=== PATIENT | male | born 1950 | race Caucasian/White ===

== ENCOUNTER 2019-05-22 08:44 | Outpatient (CLI) | payer MEDICARE, SELFPAY ==
[2019-05-22 09:19] LABS: Basophils Percent Auto 0.4 % (0.2-1.2); Eosinophils Absolute Auto 0.2 K/mm3 (0-0.3); Hematocrit 41.2 % (42.0-52.0); Hemoglobin 14.5 g/dL (14.0-18.0); Immature Granulocyte Absolute 0.03 K/mm3 (0.00-0.031); Immature Granulocyte Percent A 0.4 % (0-0.5); Lymphocytes Absolute Auto 2.37 K/mm3 (0.9-3.2); Lymphocytes Percent Auto 30.2 % (18.3-44.2); Mean Corpuscular HGB Conc 35.2 g/dl (32-36); Mean Corpuscular Hemoglobin 30.2 pg (26-34); Mean Corpuscular Volume 85.8 fl (80-100); Mean Platelet Volume 10.4 fl (7.4-10.4); Monocytes Absolute Auto 0.5 K/mm3 (0.1-0.6); Monocytes Percent Auto 6.6 % (2.6-8.5); Neutrophils Absolute Auto 4.7 K/mm3 (1.3-6.7); Neutrophils Percent Auto 60.4 % (45.5-73.1); Platelet Count Result 245 k/mm3 (150-375); Red Cell Distribution Width 12.8 % (11.5-14.5); White Blood Count 7.8 K/mm3 (4.5-10.0)
[2019-05-22 09:20] LABS: Add Urine Microscopic? NO; Appearance Urine Clear (Clear); Bilirubin Urine Negative (Negative); Blood Urine Negative (Negative); Color Urine Yellow (Yellow); Glucose Urine UA Negative (Negative); Ketones Urine Negative (Negative); Leukocyte Esterase Ur Negative LEU/UL (Negative); Nitrate Urine Negative (Negative); Protein Urine Negative (Negative); Specific Grav Ur 1.019 (1.001-1.035); Urobilinogen Urine Negative mg/dL (<2.0)
[2019-05-22 09:33] LABS: Magnesium 1.7 mg/dL (1.6-2.3)
[2019-05-22 09:34] LABS: Alanine Aminotransferase 23 U/L (4-50); Albumin Level 4.7 g/dL (3.5-5.1); Alkaline Phosphatase 86 U/L (38-126); Aspartate Amino Transferase 26 U/L (17-59); Bilirubin,Total 0.7 mg/dL (0.2-1.3); Blood Urea Nitrogen 30 mg/dL (9-20); Calcium 10.1 mg/dL (8.4-10.2); Carbon Dioxide 28 mmol/L (22-30); Chloride 103 mmol/L (98-107); Estimated Glomerular Filt Rate 40; Glucose 157 mg/dL (75-110); Phosphorus 3.5 mg/dL (2.5-4.5); Potassium 4.7 mmol/L (3.4-5.0); Sodium 138 mmol/L (137-145)
[2019-05-22 09:36] LABS: Creatinine Urine 229.4 mg/dL; Total Protein Urine Random 8 mg/dL
[2019-05-22 09:45] LABS: Parathyroid Intact 70.9 pg/mL (7.5-53.5)
[2019-05-22 09:49] LABS: Hemoglobin A1C 7.7 % (<5.7)
[2019-05-22 10:11] LABS: Vitamin D 25 Hydroxy 48.4 ng/mL
== END 2019-05-22 08:45 | disposition home or self-care (01) ==
PROVIDERS: PCP Internal Medicine
DX: N18.3 Chronic kidney disease, stage 3 (moderate) (principal); D63.1 Anemia in chronic kidney disease; E11.9 Type 2 diabetes mellitus without complications; N25.0 Renal osteodystrophy; E55.9 Vitamin D deficiency, unspecified; I10 Essential (primary) hypertension; I25.10 Atherosclerotic heart disease of native coronary artery without angina pectoris; E78.5 Hyperlipidemia, unspecified; E87.5 Hyperkalemia; N40.0 Benign prostatic hyperplasia without lower urinary tract symptoms
CPT/HCPCS: 36415; 80053; 81003; 82306; 82570; 83036; 83735; 83970; 84100; 84156; 85025

== ENCOUNTER 2019-07-08 08:47 | Outpatient (CLI) | payer MEDICARE, SELFPAY ==
--- NOTE | ~2019-07-08 | US_ITS ---
US right upper quadrant DATE: 07/08/2019 09:32 INDICATION: Abdominal pain TECHNIQUE: Real-time imaging of liver, pancreas, gallbladder areas COMPARISON: None FINDINGS: No hepatic or pancreatic space-occupying mass lesion is evident. Normal hepatic portal veno us flow direction. The common bile duct measures 4.7 mm, within normal range. No gallbladder wall thickening, pericholecystic fluid or gallstones are evident. Negative sonographic Bui's sign. IMPRESSION: No significant abnormality Reviewed, dictated and finalized at [facility]. Reviewed, dictated and finalized at location A. IMPRESSION: No significant abnormality
== END 2019-07-08 08:48 | disposition home or self-care (01) ==
PROVIDERS: Visit Provider Internal Medicine
DX: R10.9 Unspecified abdominal pain (principal)
CPT/HCPCS: 76705

== ENCOUNTER 2019-07-29 08:18 | Outpatient (CLI) | payer MEDICARE, SELFPAY ==
--- NOTE | ~2019-07-29 | CT_ITS ---
EXAMINATION: CT abdomen pelvis wo con DATE: 07/29/2019 08:47 INDICATION: Abdomen pain for 2 weeks. TECHNIQUE: Computed tomography (CT) of the abdomen and pelvis was performed without intravenous contr ast. The dose-length product was 1357.68 mGy-cm. Automated exposure control and iterative reconstruct ion technique were employed. COMPARISON: None. FINDINGS: Lung bases are unremarkable. Heart size normal. No significant pleural or pericardial effus ion. Fatty infiltration of the liver. The spleen, pancreas, adrenal glands and kidneys are unremarkable. N ormal appendix. There is a large fat-containing right inguinal hernia. Colonic diverticulosis without evidence for diverticulitis. No bowel obstruction. No renal/ureteral stones or hydronephrosis. No ac cher-ae heights osseous abnormality. Mild lumbar spondylosis. No significant vascular abnormality. No lymphadenop athy. There is an accessory splenule. IMPRESSION: 1. Large fat-containing right inguinal hernia. 2: Hepatic steatosis. Reviewed, dictated and finalized at location A.
== END 2019-07-29 08:19 | disposition home or self-care (01) ==
PROVIDERS: Visit Provider Internal Medicine
DX: R10.9 Unspecified abdominal pain (principal); K40.90 Unilateral inguinal hernia, without obstruction or gangrene, not specified as recurrent; K76.0 Fatty (change of) liver, not elsewhere classified
CPT/HCPCS: 74176

== ENCOUNTER 2019-08-20 09:45 | Outpatient (CLI) | payer MEDICARE, SELFPAY ==
[2019-08-20 10:30] LABS: Basophils Percent Auto 0.4 % (0.2-1.2); Eosinophils Absolute Auto 0.1 K/mm3 (0-0.3); Eosinophils Percent Auto 1.4 % (0-4.4); Hematocrit 43.1 % (42.0-52.0); Hemoglobin 15.1 g/dL (14.0-18.0); Immature Granulocyte Absolute 0.03 K/mm3 (0.00-0.031); Immature Granulocyte Percent A 0.4 % (0-0.5); Lymphocytes Absolute Auto 2.26 K/mm3 (0.9-3.2); Lymphocytes Percent Auto 26.7 % (18.3-44.2); Mean Corpuscular Hemoglobin 30.4 pg (26-34); Mean Corpuscular Volume 86.7 fl (80-100); Mean Platelet Volume 10.7 fl (7.4-10.4); Monocytes Absolute Auto 0.6 K/mm3 (0.1-0.6); Neutrophils Absolute Auto 5.4 K/mm3 (1.3-6.7); Neutrophils Percent Auto 64.1 % (45.5-73.1); Platelet Count Result 222 k/mm3 (150-375); Red Blood Count 4.97 M/mm3 (4.6-6.20); Red Cell Distribution Width 12.7 % (11.5-14.5); White Blood Count 8.5 K/mm3 (4.5-10.0)
[2019-08-20 10:31] LABS: Add Urine Microscopic? NO; Appearance Urine Clear (Clear); Bilirubin Urine Negative (Negative); Blood Urine Negative (Negative); Color Urine Yellow (Yellow); Glucose Urine UA Negative (Negative); Ketones Urine Negative (Negative); Leukocyte Esterase Ur Negative LEU/UL (NEGATIVE); Nitrate Urine Negative (Negative); Protein Urine Negative (Negative); Specific Grav Ur 1.019 (1.001-1.035); Urobilinogen Urine Negative mg/dL (<2.0)
[2019-08-20 10:35] LABS: Creatinine Urine 274.3 mg/dL; Total Protein Urine Random 11 mg/dL
[2019-08-20 10:39] LABS: Hemoglobin A1C 7.1 % (<5.7)
[2019-08-20 10:41] LABS: Alanine Aminotransferase 33 U/L (4-50); Albumin Level 4.8 g/dL (3.5-5.1); Alkaline Phosphatase 91 U/L (38-126); Aspartate Amino Transferase 35 U/L (17-59); Bilirubin,Total 0.8 mg/dL (0.2-1.3); Blood Urea Nitrogen 31 mg/dL (9-20); Calcium 10.3 mg/dL (8.4-10.2); Carbon Dioxide 30 mmol/L (22-30); Chloride 100 mmol/L (98-107); Estimated Glomerular Filt Rate 38; Glucose 181 mg/dL (75-110); Phosphorus 3.6 mg/dL (2.5-4.5); Potassium 4.9 mmol/L (3.4-5.0); Sodium 136 mmol/L (137-145)
[2019-08-20 11:24] LABS: Vitamin D 25 Hydroxy 68.4 ng/mL
== END 2019-08-20 09:46 | disposition home or self-care (01) ==
LOC: ANHLAB 09:48
PROVIDERS: Visit Provider Internal Medicine Nephrology
DX: D63.1 Anemia in chronic kidney disease (principal); E11.9 Type 2 diabetes mellitus without complications; N39.0 Urinary tract infection, site not specified; N25.0 Renal osteodystrophy; E55.9 Vitamin D deficiency, unspecified
CPT/HCPCS: 36415; 80053; 81003; 82306; 82570; 83036; 83970; 84100; 84156; 85025; 87086

== ENCOUNTER 2019-09-09 00:43 | Outpatient (CLI) | payer MEDICARE, SELFPAY ==
[2019-09-09 19:20] LABS: SARS-CoV-2 RNA PCR Negative
== END 2019-09-09 00:44 | disposition home or self-care (01) ==
LOC: ANHCOVIDDT 00:43
PROVIDERS: Visit Provider Internal Medicine Gastroenterology
DX: Z01.812 Encounter for preprocedural laboratory examination (principal); Z11.59 Encounter for screening for other viral diseases
CPT/HCPCS: 87635; C9803; U0003

== ENCOUNTER 2019-09-11 02:44 | Day surgery (SDC) | payer MEDICARE, SELFPAY ==
[2019-09-03 14:14] VITALS: BMI 32.5
--- NOTE | 2019-09-11 08:58 | WPDANESEPPF ---
Anes - Initial Pre Proc Eval Procedure: Operation Date: 09/11/19 09:30 Proposed Procedures p Esophagogastroduodenoscopy & Colonoscopy - David Landry MD Date/Time: 09/11/19 08:58 Surgeon: David Landry MD Pre Op Diagnosis: CHANGE IN BOWEL HABITS EPIGASTRIC,UPPER QUAD PAIN Patient Data Age: 68 Gender: M Height: 1.75 m Weight: 100 kg Allergies Allergy/AdvReac Type Severity Reaction Status Date / Time No Known Allergies Allergy Verified 09/11/19 09:31 Home Medications Medication Instructions Recorded Confirmed Type amlodipine 2.5 mg PO DAILY 09/03/19 09/11/19 History aspirin [Aspirin Low Dose] 81 mg PO DAILY 09/03/19 09/11/19 History atorvastatin [Lipitor] 10 mg PO DAILY 09/03/19 09/11/19 History biotin 10,000 mcg PO DAILY 09/03/19 09/11/19 History cholecalciferol (vitamin D3) 50 mcg PO DAILY 09/03/19 09/11/19 History [Vitamin D3] docusate sodium 100 mg PO DAILY 09/03/19 09/11/19 History duloxetine 30 mg PO DAILY 09/03/19 09/11/19 History finasteride 5 mg PO DAILY 09/03/19 09/11/19 History gemfibrozil 600 mg PO BID 09/03/19 09/11/19 History glimepiride 4 mg PO DAILY 09/03/19 09/11/19 History hydrochlorothiazide 12.5 mg PO DAILY 09/03/19 09/11/19 History lisinopril 5 mg PO DAILY 09/03/19 09/11/19 History rigtsdkj-afu-VY-lycopen-lutein 1 tablet PO DAILY 09/03/19 09/11/19 History [Centrum Silver Men] omega 4-dpo-iaf-fish oil [Fish Oil] 1 cap PO DAILY 09/03/19 09/11/19 History tamsulosin 0.4 mg PO DAILY 09/03/19 09/11/19 History Patient hx anesthesia problems: none Family hx anesthesia problems: none PMFSH Past Medical History Medical History (Updated 09/11/19 @ 09:00 by Saad Lomeli MD) Back pain HRNIATED DISC, NEUROMA- FIBROMA T10 BPH (benign prostatic hyperplasia) CKD (chronic kidney disease) stage 3, GFR 30-59 ml/min Diabetes HTN (hypertension) Hx of myocardial infarction Hypercholesterolemia Obesity Social History Social History Smoking status: Never smoker Alcohol intake: never Anes - Eval Final PreProcedure Day of Procedure 09/11/19 08:58 Patient weight: obese Heart: regular rate and rhythm Lungs: clear to auscultation and normal air movement Airway: Mallampati scale class II Neurological: alert and oriented Last oral intake: >/= 8 hours ASA classification: III Emergent: no Anesthetic plan: proceed Anesthesia type and monitoring: general GIVS Informed Consent: The patient's anesthetic plan and its attendant risks and benefits were discussed with the patient/family/POA. Questions were solicited and answers provided to the satisfaction of the patient/family/POA.
[2019-09-11 09:32] VITALS: BP 135/91; PULSE 56; RESP 16; TEMP 36.5; O2SAT 98; BMI 31.0
[2019-09-11] MEDS: LACTATED RINGERS 1,000 ML 150 ML IV CONT (09:51)
[2019-09-11 09:54] LABS: Glucose Point of Care 134 (65-105)
--- NOTE | 2019-09-11 10:42 | WPDGICN ---
Assessment and Plan Assessment and plan (1) Epigastric abdominal pain: Code(s): R10.13 - Epigastric pain Status: Acute Assessment and Plan: Because of abdominal pain especially in the epigastric area occasionally an EGD will be performed. (2) Right sided abdominal pain: Code(s): R10.9 - Unspecified abdominal pain Status: Acute Assessment and Plan: Patient has chronic right-sided abdominal pain. Patient is on certain the etiology of this. He feels it is different than is ongoing neurological problem. Plan is to evaluate with colonoscopy. Colonoscopy also indicated for neoplasia screening purposes as he has never had 1. Previous colon guard test was reported to be negative. (3) Back pain: Code(s): M54.9 - Dorsalgia, unspecified Status: Acute (4) Right inguinal hernia: Code(s): K40.90 - Unilateral inguinal hernia, without obstruction or gangrene, not specified as recurrent Status: Acute Assessment and Plan: Inguinal hernia identified by CT scan. Is on certain how this relates to his pain agree with surgical consultation patient is referred to surgery. GI Consult Note Consult date/time: 09/11/19 10:42 HPI: Keyshawn Sanders is a 68 year old male Seen in evaluation at the request of Dr. Brando Helton. Patient complains of right mid abdominal pain that is been present for at least 1 month if not longer. He also notes epigastric pain and right side pain. Patient describes pain is a constant mild discomfort. He also notes a vague send this a madrigal he states the pain is not specifically burning. He has no specific aggravating or alleviating factors. 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 Currently he reports bowel habits are mildly irregular. He recently was identified as having a right inguinal hernia. Family history is significant his father at age 82 from pancreatic cancer. Review of Systems Review of Systems: All systems reviewed & are unremarkable except as noted in HPI and below PMFSH Past Medical History Medical History Back pain HRNIATED DISC, NEUROMA- FIBROMA T10 BPH (benign prostatic hyperplasia) CKD (chronic kidney disease) stage 3, GFR 30-59 ml/min Diabetes HTN (hypertension) Hx of myocardial infarction Hypercholesterolemia Obesity Social History Social History Smoking status: Never smoker Alcohol intake: never Meds Home Medications and Allergies Home Medications Medication Instructions Recorded Confirmed Type amlodipine 2.5 mg PO DAILY 09/03/19 09/11/19 History aspirin [Aspirin Low Dose] 81 mg PO DAILY 09/03/19 09/11/19 History atorvastatin [Lipitor] 10 mg PO DAILY 09/03/19 09/11/19 History biotin 10,000 mcg PO DAILY 09/03/19 09/11/19 History cholecalciferol (vitamin D3) 50 mcg PO DAILY 09/03/19 09/11/19 History [Vitamin D3] docusate sodium 100 mg PO DAILY 09/03/19 09/11/19 History duloxetine 30 mg PO DAILY 09/03/19 09/11/19 History finasteride 5 mg PO DAILY 09/03/19 09/11/19 History gemfibrozil 600 mg PO BID 09/03/19 09/11/19 History glimepiride 4 mg PO DAILY 09/03/19 09/11/19 History hydrochlorothiazide 12.5 mg PO DAILY 09/03/19 09/11/19 History lisinopril 5 mg PO DAILY 09/03/19 09/11/19 History aijvvepx-cwy-CV-lycopen-lutein 1 tablet PO DAILY 09/03/19 09/11/19 History [Centrum Silver Men] omega 1-jaz-qhw-fish oil [Fish Oil] 1 cap PO DAILY 09/03/19 09/11/19 History tamsulosin 0.4 mg PO DAILY 09/03/19 09/11/19 History Allergies Allergy/AdvReac Type Severity Reaction Status Date / Time No Known Allergies Allergy Verified 09/11/19 09:31 Vital Signs Vital Signs - 24 hr 09/11/19 09:32 Temperature 97.7 F Pulse Rate 56 L Respiratory Rate 16 Blood Pressure 135/91 H Pulse Oximetry 98 Exam Narrative: Exam
[2019-09-11 11:22] VITALS: BP 110/63; PULSE 79; RESP 22; O2SAT 100
[2019-09-11 11:32] VITALS: BP 101/63; PULSE 86; RESP 20; O2SAT 100
[2019-09-11 11:42] VITALS: BP 131/79; PULSE 67; RESP 22; O2SAT 99
== END 2019-09-11 12:01 | disposition home or self-care (01) ==
PROVIDERS: Visit Provider Internal Medicine Gastroenterology
PROC: 0DJ08ZZ Inspection of Upper Intestinal Tract, Via Natural or Artificial Opening Endoscopic (ICD-10-PCS; CPT 43235; principal; 2019-09-11 09:30)
DX: Z12.11 Encounter for screening for malignant neoplasm of colon (principal); R10.31 Right lower quadrant pain; R19.4 Change in bowel habit; D12.5 Benign neoplasm of sigmoid colon; K63.5 Polyp of colon; K64.8 Other hemorrhoids; R10.13 Epigastric pain; I12.9 Hypertensive chronic kidney disease with stage 1 through stage 4 chronic kidney disease, or unspecified chronic kidney disease; N18.3 Chronic kidney disease, stage 3 (moderate); N40.0 Benign prostatic hyperplasia without lower urinary tract symptoms; E11.22 Type 2 diabetes mellitus with diabetic chronic kidney disease; I25.2 Old myocardial infarction; E78.00 Pure hypercholesterolemia, unspecified; E66.9 Obesity, unspecified; Z68.31 Body mass index [BMI] 31.0-31.9, adult; Z79.82 Long term (current) use of aspirin
CPT/HCPCS: 45385; 43239; 87081; 87635; 88305; C9803; J2704; J7120; U0003

== ENCOUNTER 2019-10-21 09:38 | Outpatient (CLI) | payer MEDICARE, SELFPAY ==
[2019-10-21 10:35] LABS: Creatinine Urine 88.6 mg/dL; Total Protein Urine Random 13 mg/dL
[2019-10-21 10:39] LABS: Add Urine Microscopic? YES; Appearance Urine Clear (Clear); Basophils Percent Auto 0.6 % (0.2-1.2); Bilirubin Urine Negative (Negative); Blood Urine Negative (Negative); Color Urine Straw (Yellow); Eosinophils Absolute Auto 0.1 K/mm3 (0-0.3); Eosinophils Percent Auto 1.4 % (0-4.4); Glucose Urine UA 1+ mg/dL (Negative); Hemoglobin 13.6 g/dL (14.0-18.0); Immature Granulocyte Absolute 0.04 K/mm3 (0.00-0.031); Immature Granulocyte Percent A 0.6 % (0-0.5); Ketones Urine Negative (Negative); Leukocyte Esterase Ur Negative LEU/UL (Negative); Lymphocytes Absolute Auto 1.97 K/mm3 (0.9-3.2); Lymphocytes Percent Auto 28.1 % (18.3-44.2); Mean Corpuscular HGB Conc 34.9 g/dl (32-36); Mean Corpuscular Hemoglobin 30.4 pg (26-34); Mean Corpuscular Volume 87.1 fl (80-100); Monocytes Absolute Auto 0.5 K/mm3 (0.1-0.6); Monocytes Percent Auto 6.7 % (2.6-8.5); Neutrophils Absolute Auto 4.4 K/mm3 (1.3-6.7); Neutrophils Percent Auto 62.6 % (45.5-73.1); Nitrate Urine Negative (Negative); Platelet Count Result 194 k/mm3 (150-375); Protein Urine Negative (Negative); Red Blood Count 4.48 M/mm3 (4.6-6.20); Red Cell Distribution Width 12.7 % (11.5-14.5); Specific Grav Ur 1.015 (1.001-1.035); Urobilinogen Urine Negative mg/dL (<2.0); WBC Urine 0-3 /hpf
[2019-10-21 10:42] LABS: Alanine Aminotransferase 26 U/L (4-50); Albumin Level 4.4 g/dL (3.5-5.1); Alkaline Phosphatase 115 U/L (38-126); Anion Gap 9 mmol/L (8-16); Aspartate Amino Transferase 30 U/L (17-59); Bilirubin,Total 0.4 mg/dL (0.2-1.3); Blood Urea Nitrogen 21 mg/dL (9-20); Calcium 9.7 mg/dL (8.4-10.2); Carbon Dioxide 25 mmol/L (22-30); Chloride 104 mmol/L (98-107); Estimated Glomerular Filt Rate 50; Glucose 173 mg/dL (75-110); Hemoglobin A1C 6.7 % (<5.7); Potassium 4.6 mmol/L (3.4-5.0); Sodium 138 mmol/L (137-145)
[2019-10-21 10:52] LABS: Parathyroid Intact 36.4 pg/mL (7.5-53.5)
[2019-10-21 11:11] LABS: Vitamin D 25 Hydroxy 59.1 ng/mL
== END 2019-10-21 09:39 | disposition home or self-care (01) ==
PROVIDERS: Visit Provider Internal Medicine Nephrology
DX: I12.9 Hypertensive chronic kidney disease with stage 1 through stage 4 chronic kidney disease, or unspecified chronic kidney disease (principal); N18.3 Chronic kidney disease, stage 3 (moderate); E11.9 Type 2 diabetes mellitus without complications; I25.10 Atherosclerotic heart disease of native coronary artery without angina pectoris; E78.5 Hyperlipidemia, unspecified; E87.5 Hyperkalemia; N40.0 Benign prostatic hyperplasia without lower urinary tract symptoms
CPT/HCPCS: 36415; 80053; 81001; 82306; 82570; 83036; 83970; 84100; 84156; 85025

== ENCOUNTER 2020-01-01 10:05 | Outpatient (CLI) | payer MEDICARE, SELFPAY ==
[2020-01-01 10:52] LABS: Basophils Percent Auto 0.4 % (0.2-1.2); Eosinophils Absolute Auto 0.1 K/mm3 (0-0.3); Eosinophils Percent Auto 1.7 % (0-4.4); Hematocrit 42.4 % (42.0-52.0); Hemoglobin 14.9 g/dL (14.0-18.0); Immature Granulocyte Absolute 0.03 K/mm3 (0.00-0.031); Immature Granulocyte Percent A 0.4 % (0-0.5); Lymphocytes Absolute Auto 2.23 K/mm3 (0.9-3.2); Lymphocytes Percent Auto 28.8 % (18.3-44.2); Mean Corpuscular HGB Conc 35.1 g/dl (32-36); Mean Corpuscular Hemoglobin 30.9 pg (26-34); Mean Platelet Volume 10.4 fl (7.4-10.4); Monocytes Absolute Auto 0.5 K/mm3 (0.1-0.6); Monocytes Percent Auto 6.7 % (2.6-8.5); Neutrophils Absolute Auto 4.8 K/mm3 (1.3-6.7); Platelet Count Result 208 k/mm3 (150-375); Red Blood Count 4.82 M/mm3 (4.6-6.20); Red Cell Distribution Width 12.4 % (11.5-14.5); White Blood Count 7.7 K/mm3 (4.5-10.0)
[2020-01-01 11:03] LABS: Add Urine Microscopic? YES; Appearance Urine Clear (Clear); Bilirubin Urine Negative (Negative); Blood Urine Negative (Negative); Color Urine Yellow (Yellow); Glucose Urine UA 1+ mg/dL (Negative); Ketones Urine Negative (Negative); Leukocyte Esterase Ur Negative LEU/UL (Negative); Nitrate Urine Negative (Negative); Protein Urine 1+ mg/dL (Negative); RBC Urine 0-2 /hpf (0-2); Specific Grav Ur 1.018 (1.001-1.035); Squamous Epithelial Cell Urine Rare /hpf (Few); Urobilinogen Urine Negative mg/dL (<2.0)
[2020-01-01 11:03] LABS: Creatinine Urine 131.9 mg/dL; Total Protein Urine Random 14 mg/dL
[2020-01-01 11:03] LABS: Hemoglobin A1C 7.3 % (<5.7)
[2020-01-01 11:08] LABS: Alanine Aminotransferase 28 U/L (4-50); Albumin Level 4.9 g/dL (3.5-5.1); Alkaline Phosphatase 95 U/L (38-126); Anion Gap 7 mmol/L (8-16); Aspartate Amino Transferase 38 U/L (17-59); Bilirubin,Total 0.7 mg/dL (0.2-1.3); Blood Urea Nitrogen 24 mg/dL (9-20); Carbon Dioxide 30 mmol/L (22-30); Chloride 103 mmol/L (98-107); Estimated Glomerular Filt Rate 43; Glucose 173 mg/dL (75-110); Phosphorus 2.8 mg/dL (2.5-4.5); Sodium 140 mmol/L (137-145)
[2020-01-01 11:20] LABS: Parathyroid Intact 127.7 pg/mL (7.5-53.5)
[2020-01-01 11:44] LABS: Vitamin D 25 Hydroxy 60.5 ng/mL
== END 2020-01-01 10:06 | disposition home or self-care (01) ==
PROVIDERS: Visit Provider Internal Medicine Nephrology
DX: N18.30 Chronic kidney disease, stage 3 unspecified (principal); E11.9 Type 2 diabetes mellitus without complications; I25.10 Atherosclerotic heart disease of native coronary artery without angina pectoris; E78.5 Hyperlipidemia, unspecified; E87.5 Hyperkalemia
CPT/HCPCS: 36415; 80053; 81001; 82306; 82570; 83036; 83970; 84100; 84156; 85025

== ENCOUNTER 2020-04-27 08:51 | Outpatient (CLI) | payer MEDICARE, SELFPAY ==
[2020-04-27 09:20] LABS: Basophils Percent Auto 0.3 % (0.2-1.2); Eosinophils Absolute Auto 0.1 K/mm3 (0-0.3); Eosinophils Percent Auto 1.8 % (0-4.4); Hematocrit 40.7 % (42.0-52.0); Hemoglobin 14.1 g/dL (14.0-18.0); Immature Granulocyte Absolute 0.03 K/mm3 (0.00-0.031); Immature Granulocyte Percent A 0.5 % (0-0.5); Lymphocytes Absolute Auto 1.94 K/mm3 (0.9-3.2); Lymphocytes Percent Auto 29.3 % (18.3-44.2); Mean Corpuscular HGB Conc 34.6 g/dl (32-36); Mean Corpuscular Hemoglobin 31.1 pg (26-34); Mean Corpuscular Volume 89.8 fl (80-100); Mean Platelet Volume 10.7 fl (7.4-10.4); Monocytes Absolute Auto 0.6 K/mm3 (0.1-0.6); Monocytes Percent Auto 8.6 % (2.6-8.5); Neutrophils Absolute Auto 3.9 K/mm3 (1.3-6.7); Neutrophils Percent Auto 59.5 % (45.5-73.1); Platelet Count Result 188 k/mm3 (150-375); Red Blood Count 4.53 M/mm3 (4.6-6.20); Red Cell Distribution Width 12.4 % (11.5-14.5); White Blood Count 6.6 K/mm3 (4.5-10.0)
[2020-04-27 09:24] LABS: Add Urine Microscopic? YES; Appearance Urine Clear (Clear); Bilirubin Urine Negative (Negative); Blood Urine Negative (Negative); Color Urine Yellow (Yellow); Glucose Urine UA 2+ mg/dL (Negative); Ketones Urine Negative (Negative); Leukocyte Esterase Ur Negative LEU/UL (Negative); Nitrate Urine Negative (Negative); Protein Urine 1+ mg/dL (Negative); Specific Grav Ur 1.021 (1.001-1.035); Squamous Epithelial Cell Urine Rare /hpf (Few); Urobilinogen Urine Negative mg/dL (<2.0); WBC Urine 0-3 /hpf
[2020-04-27 09:32] LABS: Creatinine Urine 112.5 mg/dL; Total Protein Urine Random 15 mg/dL; Ur Ttl Prot Creatinine Ratio 0.13 mg/mg (0-0.20)
[2020-04-27 09:36] LABS: Alanine Aminotransferase 21 U/L (4-50); Albumin Level 4.3 g/dL (3.5-5.1); Alkaline Phosphatase 131 U/L (38-126); Anion Gap 6 mmol/L (8-16); Aspartate Amino Transferase 26 U/L (17-59); Bilirubin,Total 0.4 mg/dL (0.2-1.3); Blood Urea Nitrogen 31 mg/dL (9-20); Calcium 9.7 mg/dL (8.4-10.2); Carbon Dioxide 30 mmol/L (22-30); Chloride 103 mmol/L (98-107); Estimated Glomerular Filt Rate 40; Glucose 202 mg/dL (75-110); Potassium 4.5 mmol/L (3.4-5.0); Sodium 139 mmol/L (137-145)
[2020-04-27 09:46] LABS: Parathyroid Intact 12.8 pg/mL (7.5-53.5)
[2020-04-27 09:50] LABS: Hemoglobin A1C 7.3 % (<5.7)
[2020-04-27 10:08] LABS: Vitamin D 25 Hydroxy 64.6 ng/mL
== END 2020-04-27 08:52 | disposition home or self-care (01) ==
PROVIDERS: Visit Provider Internal Medicine Nephrology
DX: N39.0 Urinary tract infection, site not specified (principal); D63.1 Anemia in chronic kidney disease; E11.9 Type 2 diabetes mellitus without complications; N25.0 Renal osteodystrophy; E55.9 Vitamin D deficiency, unspecified
CPT/HCPCS: 36415; 80053; 81001; 82306; 82570; 83036; 83970; 84156; 85025

== ENCOUNTER 2020-05-06 16:37 | Outpatient (CLI) | payer MEDICARE, SELFPAY ==
--- NOTE | ~2020-05-06 | XR_ITS ---
XR ribs RT 2V DATE: 05/06/2020 17:34 INDICATION: Fall one week ago. Right rib pain. TECHNIQUE: 3 views COMPARISON: None FINDINGS: Osteopenia. No right rib fracture or bone destruction is detected. No right lung infiltrate or consolidation, pleural effusion or pneumothorax. There is thoracic scoliosis and degenerative change. Aortic arch calcification. IMPRESSION: Osteopenia; no rib fracture is evident Reviewed, dictated and finalized at location [facility].
== END 2020-05-06 16:38 | disposition home or self-care (01) ==
PROVIDERS: Visit Provider Internal Medicine
DX: R07.81 Pleurodynia (principal); M85.88 Other specified disorders of bone density and structure, other site
CPT/HCPCS: 71100

== ENCOUNTER 2020-06-20 07:41 | Outpatient (CLI) | payer MEDICARE, SELFPAY ==
[2020-06-20 08:24] LABS: Basophils Percent Auto 0.4 % (0.2-1.2); Eosinophils Absolute Auto 0.2 K/mm3 (0-0.3); Eosinophils Percent Auto 2.2 % (0-4.4); Hematocrit 42.9 % (42.0-52.0); Hemoglobin 15.1 g/dL (14.0-18.0); Immature Granulocyte Absolute 0.02 K/mm3 (0.00-0.031); Immature Granulocyte Percent A 0.2 % (0-0.5); Lymphocytes Absolute Auto 2.42 K/mm3 (0.9-3.2); Lymphocytes Percent Auto 29.9 % (18.3-44.2); Mean Corpuscular HGB Conc 35.2 g/dl (32-36); Mean Corpuscular Hemoglobin 30.2 pg (26-34); Mean Corpuscular Volume 85.8 fl (80-100); Mean Platelet Volume 10.8 fl (7.4-10.4); Monocytes Absolute Auto 0.6 K/mm3 (0.1-0.6); Monocytes Percent Auto 7.2 % (2.6-8.5); Neutrophils Absolute Auto 4.9 K/mm3 (1.3-6.7); Neutrophils Percent Auto 60.1 % (45.5-73.1); Platelet Count Result 209 k/mm3 (150-375); Red Cell Distribution Width 12.2 % (11.5-14.5); White Blood Count 8.1 K/mm3 (4.5-10.0)
[2020-06-20 08:26] LABS: Add Urine Microscopic? NO; Appearance Urine Clear (Clear); Bilirubin Urine Negative (Negative); Blood Urine Negative (Negative); Color Urine Yellow (Yellow); Glucose Urine UA Negative (Negative); Ketones Urine Negative (Negative); Leukocyte Esterase Ur Negative LEU/UL (Negative); Nitrate Urine Negative (Negative); Protein Urine Negative (Negative); Specific Grav Ur 1.018 (1.001-1.035); Urobilinogen Urine Negative mg/dL (<2.0)
[2020-06-20 08:35] LABS: Alanine Aminotransferase 32 U/L (4-50); Albumin Level 4.8 g/dL (3.5-5.1); Alkaline Phosphatase 101 U/L (38-126); Anion Gap 7 mmol/L (8-16); Aspartate Amino Transferase 38 U/L (17-59); Bilirubin,Total 0.6 mg/dL (0.2-1.3); Blood Urea Nitrogen 32 mg/dL (9-20); Calcium 10.1 mg/dL (8.4-10.2); Carbon Dioxide 29 mmol/L (22-30); Chloride 102 mmol/L (98-107); Estimated Glomerular Filt Rate 38; Glucose 143 mg/dL (75-110); Phosphorus 3.4 mg/dL (2.5-4.5); Potassium 4.3 mmol/L (3.4-5.0); Sodium 138 mmol/L (137-145)
[2020-06-20 08:47] LABS: Parathyroid Intact 78.4 pg/mL (7.5-53.5)
[2020-06-20 08:55] LABS: Total Protein Urine Random 13 mg/dL; Ur Ttl Prot Creatinine Ratio 0.08 mg/mg (0-0.20)
== END 2020-06-20 07:42 | disposition home or self-care (01) ==
PROVIDERS: Visit Provider Internal Medicine Nephrology
DX: N18.32 Chronic kidney disease, stage 3b (principal); D63.1 Anemia in chronic kidney disease; N39.0 Urinary tract infection, site not specified; N25.0 Renal osteodystrophy; N40.0 Benign prostatic hyperplasia without lower urinary tract symptoms; E55.9 Vitamin D deficiency, unspecified; E11.9 Type 2 diabetes mellitus without complications; E78.5 Hyperlipidemia, unspecified; E87.5 Hyperkalemia; I10 Essential (primary) hypertension; I25.10 Atherosclerotic heart disease of native coronary artery without angina pectoris
CPT/HCPCS: 36415; 80053; 81003; 82306; 82570; 83970; 84100; 84156; 85025

== ENCOUNTER 2020-07-02 08:58 | Outpatient (CLI) | payer MEDICARE, SELFPAY ==
--- NOTE | ~2020-07-02 | CT_ITS ---
EXAMINATION: CT thoracic lumbar wo con EXAM DATE: 07/02/2020 09:49 INDICATION: Pleurodynia. Severe back pain. TECHNIQUE: Spiral CT thoracolumbar spine was performed without contrast. Axial, coronal and sagittal images of the thoracic spine were reviewed. Axial, coronal and sagittal images of the lumbar spine we re reviewed. The dose-length product (DLP) for this examination was 2204.25 mGy-cm. The exposure was tailored according to patient size (auto mA exposure control), and iterative reconstruction (ASIR) w as used as additional dose reduction technique. There is no prior study for comparison. No thoracic FINDINGS: THORACIC SPINE: Mild upper thoracic levoscoliosis and lower thoracic dextroscoliosis. There is small to moderate-sized bridging endplate osteophytes at mid thoracic levels. There is mild to moderate mid thoracic disc disease, mild lower thoracic disc disease. Thoracic surgical changes, laminectomies T8 -T10. The vertebral bodies are aligned in the AP dimension. Vertebral body heights relatively well-ma intained. No CT evidence of central canal stenosis. No more than mild neural foraminal stenosis at lo wer thoracic levels. There are no osteoblastic or osteolytic lesions identified. Paraspinal soft tiss ue is unremarkable. LUMBAR SPINE: The vertebral bodies are aligned in the AP dimension. Mild to moderate disc disease L2- 3 and L3-4, mild at the other lumbar levels. Sacrum is intact. There are no acute fractures identifie d. No endplate erosive change. There are no osteoblastic or osteolytic lesions identified. Level by level evaluation: T12-L1: Disc does not extend beyond the endplate margin. Facet arthropathy: Mild. Neural foraminal stenosis: No stenosis. Central canal stenosis: No stenosis. L1-L2: Disc does not extend beyond the endplate margin. Facet arthropathy: Mild. Neural foraminal stenosis: No stenosis. Central canal stenosis: No stenosis. L2-L3: There is a mild diffuse disc bulge. Facet arthropathy: Mild. Neural foraminal stenosis: No stenosis. Central canal stenosis: No stenosis. L3-L4: There is a mild diffuse disc bulge. Facet arthropathy: Mild. Neural foraminal stenosis: Mild bilateral. Central canal stenosis: Mild. L4-L5: There is a mild to moderate diffuse disc bulge. Facet arthropathy: Mild to moderate. Neural foraminal stenosis: Mild bilateral. Central canal stenosis: Mild. L5-S1: There is a mild diffuse disc bulge. Facet arthropathy: Mild. Neural foraminal stenosis: No stenosis. Central canal stenosis: No stenosis. IMPRESSION: Fygg-as-grjadoks thoracolumbar spondylosis. Reviewed, dictated and finalized at location A. IMPRESSION: Dswo-zx-qtqntynz thoracolumbar spondylosis.
== END 2020-07-02 08:59 | disposition home or self-care (01) ==
PROVIDERS: Visit Provider Internal Medicine
DX: R07.81 Pleurodynia (principal); M47.815 Spondylosis without myelopathy or radiculopathy, thoracolumbar region
CPT/HCPCS: 72128; 72131

== ENCOUNTER 2020-08-17 10:07 | Outpatient (CLI) | payer MEDICARE, SELFPAY ==
--- NOTE | ~2020-08-17 | MR_ITS ---
EXAMINATION: MR thoracic spine wo con EXAM DATE: 08/17/2020 11:03 INDICATION: Low back pain. TECHNIQUE: Multi-sequential, multiplanar MR images of the thoracic spine were obtained without contra st. Sagittal T1, T2, T2 fat saturation, axial T2 weighted images reviewed. There is no prior study for comparison. FINDINGS: There is mild thoracic scoliosis. The vertebral bodies are aligned in the AP dimension. Mil d diffuse thoracic disc disease. Mild diffuse thoracic facet arthropathy. The neural foramen and cent ral canal are widely patent. There are no suspicious marrow signal abnormalities. Paraspinal soft tis lalo is unremarkable. There are bilateral laminectomy defects T8-T10. The midthoracic spinal cord is deviated to the right posterolateral aspect of the spinal canal between the T8 and T10 level, and there is a small cleft in the right posterior lateral aspect of the spinal cord identified on axial T2-weighted sequence 9 adore ges 25 and 26. No evidence of arachnoid cyst or other mass within the spinal canal to account for thi s. This could be sequela from a dural rent/tear. IMPRESSION: 1. T8-T10 laminectomies. Spinal cord course alteration, deformity from T8 through T10 levels most li hema sequela from dural rent/tear. 2. Mild cervical spondylosis and mild scoliosis. Reviewed, dictated and finalized at location A. IMPRESSION: 1. T8-T10 laminectomies. Spinal cord course alteration, deformity from T8 thro ugh T10 levels most likely sequela from dural rent/tear. 2. Mild cervical spondylosis and mild scoliosis.
== END 2020-08-17 10:08 | disposition home or self-care (01) ==
PROVIDERS: Visit Provider Internal Medicine
DX: M47.892 Other spondylosis, cervical region (principal); M41.9 Scoliosis, unspecified
CPT/HCPCS: 72146

== ENCOUNTER 2020-10-15 09:03 | Outpatient (CLI) | payer MEDICARE, SELFPAY ==
[2020-10-15 09:44] LABS: Basophils Percent Auto 0.3 % (0.2-1.2); Eosinophils Absolute Auto 0.1 K/mm3 (0-0.3); Eosinophils Percent Auto 1.9 % (0-4.4); Hematocrit 42.7 % (42.0-52.0); Hemoglobin 14.8 g/dL (14.0-18.0); Immature Granulocyte Absolute 0.03 K/mm3 (0.00-0.031); Immature Granulocyte Percent A 0.4 % (0-0.5); Lymphocytes Absolute Auto 2.28 K/mm3 (0.9-3.2); Mean Corpuscular HGB Conc 34.7 g/dl (32-36); Mean Corpuscular Volume 89.3 fl (80-100); Mean Platelet Volume 11.2 fl (7.4-10.4); Monocytes Absolute Auto 0.6 K/mm3 (0.1-0.6); Monocytes Percent Auto 8.4 % (2.6-8.5); Neutrophils Absolute Auto 3.9 K/mm3 (1.3-6.7); Platelet Count Result 197 k/mm3 (150-375); Red Blood Count 4.78 M/mm3 (4.6-6.20); Red Cell Distribution Width 12.6 % (11.5-14.5); White Blood Count 6.9 K/mm3 (4.5-10.0)
[2020-10-15 09:53] LABS: Appearance Urine Clear (Clear); Bilirubin Urine Negative (Negative); Blood Urine Negative (Negative); Color Urine Yellow (Yellow); Glucose Urine UA Negative (Negative); Ketones Urine Negative (Negative); Leukocyte Esterase Ur Negative LEU/UL (NEGATIVE); Nitrate Urine Negative (Negative); Protein Urine Negative (Negative); Urobilinogen Urine 0.2 mg/dL (<2.0)
[2020-10-15 09:57] LABS: Hemoglobin A1C 6.5 % (<5.7)
[2020-10-15 09:58] LABS: Alanine Aminotransferase 28 U/L (4-50); Alkaline Phosphatase 113 U/L (38-126); Anion Gap 9 mmol/L (8-16); Aspartate Amino Transferase 31 U/L (17-59); Bilirubin,Total 0.5 mg/dL (0.2-1.3); Blood Urea Nitrogen 23 mg/dL (9-20); Calcium 10.9 mg/dL (8.4-10.2); Carbon Dioxide 24 mmol/L (22-30); Chloride 102 mmol/L (98-107); Estimated Glomerular Filt Rate 38; Glucose 110 mg/dL (65-110); Phosphorus 3.7 mg/dL (2.5-4.5); Potassium 4.2 mmol/L (3.4-5.0); Sodium 135 mmol/L (137-145)
[2020-10-15 09:59] LABS: Add Urine Microscopic? NO
[2020-10-15 10:08] LABS: Parathyroid Intact 76.3 pg/mL (7.5-53.5)
[2020-10-15 10:09] LABS: Creatinine Urine 107.8 mg/dL; Total Protein Urine Random 10 mg/dL; Ur Ttl Prot Creatinine Ratio 0.09 mg/mg (0-0.20)
[2020-10-15 10:40] LABS: Vitamin D 25 Hydroxy 68.9 ng/mL
== END 2020-10-15 09:04 | disposition home or self-care (01) ==
PROVIDERS: Visit Provider Internal Medicine Nephrology
DX: I12.9 Hypertensive chronic kidney disease with stage 1 through stage 4 chronic kidney disease, or unspecified chronic kidney disease (principal); N18.32 Chronic kidney disease, stage 3b; I25.10 Atherosclerotic heart disease of native coronary artery without angina pectoris; E11.9 Type 2 diabetes mellitus without complications; E87.5 Hyperkalemia; G61.82 Multifocal motor neuropathy; E78.5 Hyperlipidemia, unspecified
CPT/HCPCS: 36415; 80053; 81001; 81003; 82306; 82570; 83036; 83970; 84100; 84156; 85025

== ENCOUNTER 2020-12-23 08:07 | Outpatient (CLI) | payer MEDICARE, SELFPAY ==
--- NOTE | ~2020-12-23 | US_ITS ---
EXAMINATION: US art doppler w press LE BI DATE: 12/23/2020 09:09 INDICATION: Abnormal pedal pulses. TECHNIQUE: Segmental pressures and plethysmographic and Doppler waveforms of the brachial and lower e xtremity arteries were obtained. COMPARISON: None. FINDINGS: Right and left brachial artery pressures of 132 mm Hg and 127 mm Hg, respectively, are concordant (no rmal difference <= 30 mmHg). The right high-thigh pressure index is 1.40 (normal > 1.2). The left hig h thigh pressure index was unable to be obtained due to inability to occlude the vessel. The right ankle-brachial index (ROSEANN) is 1.27 (normal >= 0.9-1). The right great toe-brachial index (T BI) is 0.68 (normal >= 0.6-0.8). The right lower extremity segmental pressure gradients are increased between the right dorsalis pedis artery and both the right nlspu-dpb-gchf popliteal artery and right posterior tibial artery (normal gradients <= 20-30 mmHg between adjacent levels on the same leg or t he same levels on the two legs). Arterial waveforms are triphasic at the right common femoral artery and biphasic at the more distal arteries with brisk systolic upstrokes throughout. Cardiac arrhythmia is present. The left ROSEANN is 1.30. The left TBI is 1.06. The left lower extremity segmental pressure gradients are mildly increased between the left dorsalis pedis artery and the left brvdb-qyl-yrvs popliteal artery . Arterial waveforms are biphasic with brisk systolic upstrokes throughout. IMPRESSION: 1. Normal ROSEANN's and TBI's bilaterally. No significant occlusive disease. 2. Cardiac arrhythmia is present. Correlate with EKG. Reviewed, dictated and finalized at location A.
== END 2020-12-23 08:08 | disposition home or self-care (01) ==
LOC: ANHIMG 08:10
PROVIDERS: Visit Provider Internal Medicine
DX: R20.2 Paresthesia of skin (principal); R09.89 Other specified symptoms and signs involving the circulatory and respiratory systems; I49.9 Cardiac arrhythmia, unspecified
CPT/HCPCS: 93923

== ENCOUNTER 2020-12-30 09:42 | Outpatient (CLI) | payer MEDICARE, SELFPAY ==
--- NOTE | 2020-12-30 11:15 | NEURO_ITS ---
Impression: # Complains of severe paresthesia. History of Diabetes Mellitus and T10 level benign tumor removal. # findings consistent with neuropathy with compromised needle exam because of severe dysesthesia. #higher involvement cannot be ruled out. Nerve Conduction Studies Anti Sensory Summary Table Stim Site NR Peak (ms) P-T Amp (?V) Site1 Site2 Delta-P (ms) Dist (cm) Jalil (m/s) Left Sup Fibular Anti Sensory (Ant Lat Mall) 14 cm 3.7 27.0 14 cm Ant Lat Mall 3.7 16.0 43 Right Sup Fibular Anti Sensory (Ant Lat Mall) 14 cm 4.0 11.3 14 cm Ant Lat Mall 4.0 16.0 40 Left Sural Anti Sensory (Lat Mall) Calf 4.0 6.4 Calf Lat Mall 4.0 16.0 40 Right Sural Anti Sensory (Lat Mall) Calf 4.0 6.5 Calf Lat Mall 4.0 16.0 40 Motor Summary Table Stim Site NR Onset (ms) O-P Amp (mV) Site1 Site2 Delta-0 (ms) Dist (cm) Jalil (m/s) Left Lateral Plantar Motor (ADM) Med Mall 5.1 0.1 Right Lateral Plantar Motor (ADM) Med Mall 5.0 0.2 Left Peroneal Motor (Vastus Med) Ankle 5.1 1.0 Popit Ankle 10.4 38.0 37 Popit 15.5 0.8 Right Peroneal Motor (Vastus Med) Ankle 5.2 1.6 Popit Ankle 10.0 40.0 40 Popit 15.2 1.2 Left Tibial Motor (Abd Montoya Brev) Ankle 5.2 1.3 Knee Ankle 10.9 44.0 40 Knee 16.1 0.6 Right Tibial Motor (Abd Montoya Brev) Ankle 5.1 1.8 Knee Ankle 10.4 42.0 40 Knee 15.5 0.8 F Wave Studies NR F-Lat (ms) L-R F-Lat (ms) Left Peroneal (Mrkrs) (EDB) 59.74 0.07 Right Peroneal (Mrkrs) (EDB) 59.81 0.07 Left Tibial (Mrkrs) (Abd Hallucis) 60.46 0.30 Right Tibial (Mrkrs) (Abd Hallucis) 60.15 0.30 EMG Side Muscle Nerve Root Ins Act Fibs Amp Dur Recrt Comment Right AntTibialis Dp Br Fibular L4-5 Nml Nml Nml Nml Nml Right Gastroc Tibial S1-2 Nml Nml Nml Nml Nml Right Fibularis Long Sup Br Fibular L5-S1 Nml Nml Nml Nml Nml Right Flex Dig Long Tibial L5-S2 Nml Nml Nml Nml Nml Right Ext Dig Brev Dp Br Fibular L5, S1 Nml Nml Nml Nml Nml Left AntTibialis Dp Br Fibular L4-5 Nml Nml Nml Nml Nml Left Gastroc Tibial S1-2 Nml Nml Nml Nml Nml Left Fibularis Long Sup Br Fibular L5-S1 Nml Nml Nml Nml Nml Left Flex Dig Long Tibial L5-S2 Nml Nml Nml Nml Nml Left Ext Dig Brev Dp Br Fibular L5, S1 Nml Nml Nml Nml Nml MTDD
== END 2020-12-30 09:43 | disposition home or self-care (01) ==
PROVIDERS: Visit Provider Internal Medicine
DX: R20.2 Paresthesia of skin (principal)
CPT/HCPCS: 95886; 95911

== ENCOUNTER 2021-01-27 13:42 | Outpatient (CLI) | payer MEDICARE, SELFPAY ==
[2021-01-27 14:29] LABS: Add Urine Microscopic? NO; Appearance Urine Clear (Clear); Bilirubin Urine Negative (Negative); Blood Urine Negative (Negative); Color Urine Yellow (Yellow); Glucose Urine UA Negative (Negative); Ketones Urine Negative (Negative); Leukocyte Esterase Ur Negative LEU/UL (NEGATIVE); Nitrate Urine Negative (Negative); Protein Urine Negative (Negative); Specific Grav Ur 1.017 (1.001-1.035); Urobilinogen Urine Negative mg/dL (<2.0)
[2021-01-27 14:39] LABS: Basophils Percent Auto 0.4 % (0.2-1.2); Eosinophils Absolute Auto 0.1 K/mm3 (0-0.3); Eosinophils Percent Auto 1.8 % (0-4.4); Hemoglobin 14.7 g/dL (14.0-18.0); Immature Granulocyte Absolute 0.02 K/mm3 (0.00-0.031); Immature Granulocyte Percent A 0.3 % (0-0.5); Lymphocytes Absolute Auto 2.87 K/mm3 (0.9-3.2); Lymphocytes Percent Auto 36.7 % (18.3-44.2); Mean Corpuscular HGB Conc 35.9 g/dl (32-36); Mean Corpuscular Hemoglobin 31.7 pg (26-34); Mean Corpuscular Volume 88.6 fl (80-100); Mean Platelet Volume 11.3 fl (7.4-10.4); Monocytes Absolute Auto 0.6 K/mm3 (0.1-0.6); Monocytes Percent Auto 8.2 % (2.6-8.5); Neutrophils Absolute Auto 4.1 K/mm3 (1.3-6.7); Neutrophils Percent Auto 52.6 % (45.5-73.1); Platelet Count Result 209 k/mm3 (150-375); Red Blood Count 4.63 M/mm3 (4.6-6.20); Red Cell Distribution Width 12.3 % (11.5-14.5); White Blood Count 7.8 K/mm3 (4.5-10.0)
[2021-01-27 14:58] LABS: Alanine Aminotransferase 27 U/L (4-50); Albumin Level 4.9 g/dL (3.5-5.1); Alkaline Phosphatase 90 U/L (38-126); Anion Gap 11 mmol/L (8-16); Aspartate Amino Transferase 33 U/L (17-59); Bilirubin,Total 0.9 mg/dL (0.2-1.3); Blood Urea Nitrogen 31 mg/dL (9-20); Calcium 10.6 mg/dL (8.4-10.2); Carbon Dioxide 25 mmol/L (22-30); Chloride 101 mmol/L (98-107); Cholesterol 172 mg/dL (0-200); Estimated Glomerular Filt Rate 38; Glucose 133 mg/dL (65-110); HDL Direct 32 mg/dL; Phosphorus 3.4 mg/dL (2.5-4.5); Potassium 4.4 mmol/L (3.4-5.0); Sodium 137 mmol/L (137-145); Triglycerides 168 mg/dL (<150)
[2021-01-27 15:08] LABS: LDL Cholesterol Direct 102 mg/dL; Parathyroid Intact 74.9 pg/mL (7.5-53.5)
[2021-01-27 15:17] LABS: Creatinine Urine 199.2 mg/dL
[2021-01-27 15:34] LABS: Total Protein Urine Random < 5 mg/dL; Ur Ttl Prot Creatinine Ratio < 0.03 mg/mg (0-0.20)
[2021-01-27 15:52] LABS: Vitamin D 25 Hydroxy 64.9 ng/mL
[2021-01-27 19:50] LABS: Hemoglobin A1C 6.4 % (<5.7)
== END 2021-01-27 13:43 | disposition home or self-care (01) ==
LOC: ANHLAB 13:46
PROVIDERS: Visit Provider Internal Medicine Nephrology
DX: N40.0 Benign prostatic hyperplasia without lower urinary tract symptoms (principal); E87.5 Hyperkalemia; E78.5 Hyperlipidemia, unspecified; G62.9 Polyneuropathy, unspecified; I12.9 Hypertensive chronic kidney disease with stage 1 through stage 4 chronic kidney disease, or unspecified chronic kidney disease; N18.32 Chronic kidney disease, stage 3b; E11.9 Type 2 diabetes mellitus without complications
CPT/HCPCS: 36415; 80053; 80061; 81003; 82306; 82570; 83036; 83970; 84100; 84156; 85025

== ENCOUNTER 2021-06-08 12:44 | Outpatient (CLI) | payer MEDICARE, SELFPAY ==
[2021-06-08 13:20] LABS: Basophils Percent Auto 0.6 % (0.2-1.2); Eosinophils Absolute Auto 0.1 K/mm3 (0-0.3); Eosinophils Percent Auto 1.4 % (0-4.4); Hematocrit 41.2 % (42.0-52.0); Hemoglobin 14.2 g/dL (14.0-18.0); Immature Granulocyte Absolute 0.01 K/mm3 (0.00-0.031); Immature Granulocyte Percent A 0.2 % (0-0.5); Lymphocytes Absolute Auto 2.03 K/mm3 (0.9-3.2); Lymphocytes Percent Auto 32.5 % (18.3-44.2); Mean Corpuscular HGB Conc 34.5 g/dl (32-36); Mean Corpuscular Hemoglobin 31.3 pg (26-34); Mean Corpuscular Volume 90.7 fl (80-100); Mean Platelet Volume 11.4 fl (7.4-10.4); Monocytes Absolute Auto 0.4 K/mm3 (0.1-0.6); Neutrophils Absolute Auto 3.6 K/mm3 (1.3-6.7); Neutrophils Percent Auto 58.3 % (45.5-73.1); Platelet Count Result 175 k/mm3 (150-375); Red Blood Count 4.54 M/mm3 (4.6-6.20); White Blood Count 6.3 K/mm3 (4.5-10.0)
[2021-06-08 13:21] LABS: Add Urine Microscopic? YES; Appearance Urine Clear (Clear); Bilirubin Urine Negative (Negative); Blood Urine Trace-Intact (Negative); Color Urine Yellow (Yellow); Glucose Urine UA 1+ mg/dL (Negative); Ketones Urine Negative (Negative); Leukocyte Esterase Ur Negative LEU/UL (NEGATIVE); Nitrate Urine Negative (Negative); Protein Urine Negative (Negative); Specific Grav Ur 1.025 (1.001-1.035); Urobilinogen Urine 0.2 mg/dL (<2.0)
[2021-06-08 13:24] LABS: RBC Urine 0-2 /hpf (0-2); WBC Urine 0-3 /hpf (0-3)
[2021-06-08 13:28] LABS: Creatinine Urine 113.9 mg/dL; Total Protein Urine Random 12 mg/dL; Ur Ttl Prot Creatinine Ratio 0.11 mg/mg (0-0.20)
[2021-06-08 13:30] LABS: Hemoglobin A1C 6.4 % (<5.7)
[2021-06-08 13:32] LABS: Alanine Aminotransferase 23 U/L (4-50); Albumin Level 4.7 g/dL (3.5-5.1); Alkaline Phosphatase 100 U/L (38-126); Anion Gap 7 mmol/L (8-16); Aspartate Amino Transferase 29 U/L (17-59); Bilirubin,Total 0.5 mg/dL (0.2-1.3); Blood Urea Nitrogen 20 mg/dL (9-20); Calcium 9.3 mg/dL (8.4-10.2); Carbon Dioxide 25 mmol/L (22-30); Chloride 106 mmol/L (98-107); Cholesterol 173 mg/dL (0-200); Estimated Glomerular Filt Rate 43; Glucose 146 mg/dL (65-110); HDL Direct 31 mg/dL; Phosphorus 3.5 mg/dL (2.5-4.5); Potassium 4.1 mmol/L (3.4-5.0); Sodium 138 mmol/L (137-145); Triglycerides 176 mg/dL (<150)
[2021-06-08 13:43] LABS: LDL Cholesterol Direct 91 mg/dL; Parathyroid Intact 143.7 pg/mL (7.5-53.5)
[2021-06-08 14:05] LABS: Vitamin D 25 Hydroxy 55.3 ng/mL
== END 2021-06-08 12:45 | disposition home or self-care (01) ==
LOC: ANHLAB 12:51
PROVIDERS: Visit Provider Internal Medicine Nephrology
DX: N40.0 Benign prostatic hyperplasia without lower urinary tract symptoms (principal); E87.5 Hyperkalemia; E78.5 Hyperlipidemia, unspecified; E11.9 Type 2 diabetes mellitus without complications; N18.32 Chronic kidney disease, stage 3b; M51.9 Unspecified thoracic, thoracolumbar and lumbosacral intervertebral disc disorder; G62.9 Polyneuropathy, unspecified
CPT/HCPCS: 36415; 80053; 80061; 81001; 82306; 82570; 83036; 83970; 84100; 84156; 85025

== ENCOUNTER 2021-08-22 11:52 | Outpatient (CLI) | payer MEDICARE, SELFPAY ==
--- NOTE | ~2021-08-22 | CT_ITS ---
EXAMINATION: CT abdomen pelvis wo con DATE: 08/22/2021 13:01 INDICATION: ABDOMINAL DISTENSION GASEOUS TECHNIQUE: Computed tomography (CT) of the abdomen and pelvis was performed without intravenous contr ast. Automated exposure control and iterative reconstruction technique were employed. The dose-length product was 1396.18 mGy-cm. COMPARISON: 07/29/2019. FINDINGS: Lower thorax: Unremarkable Liver: Mild fatty infiltration. Biliary/Gallbladder: Gallbladder is normal. No bile duct dilation. Pancreas: No mass or duct dilation. Spleen: Normal. Adrenals:No mass. Kidneys: No mass, stone, or hydronephrosis. GI tract: No small or large bowel dilation. Normal appendix. Diverticulosis without diverticulitis. Mesentery/Peritoneum: No ascites, mass, or free air. Retroperitoneum: No mass. Atherosclerotic abdominal aortic and/or arterial calcifications. Pelvis: Bladder wall thickening, likely secondary to osseous outlet compromise from prostatomegaly. Soft Tissues: Large fat-containing left inguinal hernia Bones: No acute osseous finding. IMPRESSION: No acute abdominopelvic process. Chronic/incidental findings detailed above. Reviewed, dictated and finalized at location K.
== END 2021-08-22 11:53 | disposition home or self-care (01) ==
PROVIDERS: Visit Provider Internal Medicine
DX: R14.0 Abdominal distension (gaseous) (principal)
CPT/HCPCS: 74176

== ENCOUNTER 2021-09-16 09:43 | Outpatient (CLI) | payer MEDICARE, SELFPAY ==
--- NOTE | ~2021-09-16 | NM_ITS ---
EXAM: NM gastric emptying study DATE: 09/16/2021 14:51 CDT INDICATION: Abdominal distention TECHNIQUE: A gastric emptying study was performed using the methodology of Jenna ESCOBEDO, et al. J Nucl Med 2007; 48:568-572. The patient was given a meal consisting of 2 scrambled eggs labeled with 0.917 mCi Tc-99m sulfur colloid, 2 slices of toast, two packages of jam, and approximately 120 mL of water . Simultaneous anterior and posterior 1-min images of the abdomen were obtained with the patient supi ne at multiple time points over a total period of 4 hours. The geometric mean of anterior and posteri or views was determined, and the percentage retention was calculated for each time point. COMPARISON: None. FINDINGS: Gastric retention of the radiotracer-labeled meal was 45%, 26%, and 6% at the 1-hour, 2-ho ur, and 4-hour time points, respectively. With this technique, apparent rapid gastric emptying is sug gested by <30% gastric retention at 1 hour. Delayed gastric emptying is defined by gastric retention of >90% at 1 hour, >60% retention at 2 hours, or >10% retention at 4 hours. IMPRESSION: 1. Normal gastric emptying. Reviewed, dictated and finalized at location A. IMPRESSION: 1. Normal gastric emptying.
== END 2021-09-16 09:44 | disposition home or self-care (01) ==
PROVIDERS: PCP Internal Medicine; Visit Provider Nurse Practitioner Family
DX: R14.0 Abdominal distension (gaseous) (principal)
CPT/HCPCS: 78264; A9541

== ENCOUNTER 2021-09-17 09:56 | Outpatient (CLI) | payer MEDICARE, SELFPAY ==
[2021-09-17 10:51] LABS: Basophils Percent Auto 0.4 % (0.2-1.2); Eosinophils Absolute Auto 0.1 K/mm3 (0-0.3); Eosinophils Percent Auto 1.3 % (0-4.4); Hematocrit 41.7 % (42.0-52.0); Hemoglobin 14.9 g/dL (14.0-18.0); Immature Granulocyte Absolute 0.01 K/mm3 (0.00-0.031); Immature Granulocyte Percent A 0.1 % (0-0.5); Lymphocytes Absolute Auto 2.08 K/mm3 (0.9-3.2); Lymphocytes Percent Auto 28.1 % (18.3-44.2); Mean Corpuscular HGB Conc 35.7 g/dl (32-36); Mean Corpuscular Hemoglobin 31.6 pg (26-34); Mean Corpuscular Volume 88.5 fl (80-100); Mean Platelet Volume 11.1 fl (7.4-10.4); Monocytes Absolute Auto 0.5 K/mm3 (0.1-0.6); Monocytes Percent Auto 6.5 % (2.6-8.5); Neutrophils Absolute Auto 4.7 K/mm3 (1.3-6.7); Neutrophils Percent Auto 63.6 % (45.5-73.1); Platelet Count Result 183 k/mm3 (150-375); Red Blood Count 4.71 M/mm3 (4.6-6.20); Red Cell Distribution Width 12.5 % (11.5-14.5); White Blood Count 7.4 K/mm3 (4.5-10.0)
[2021-09-17 10:52] LABS: Appearance Urine Clear (Clear); Bilirubin Urine Negative (Negative); Blood Urine Negative (Negative); Color Urine Yellow (Yellow); Glucose Urine UA Negative (Negative); Ketones Urine Negative (Negative); Leukocyte Esterase Ur Negative LEU/UL (NEGATIVE); Nitrate Urine Negative (Negative); Protein Urine Negative (Negative); Urobilinogen Urine 0.2 mg/dL (<2.0); pH Urine 5.5 (5.0-9.0)
[2021-09-17 10:55] LABS: Add Urine Microscopic? NO
[2021-09-17 11:02] LABS: Alanine Aminotransferase 23 U/L (6-50); Alkaline Phosphatase 81 U/L (38-126); Anion Gap 8 mmol/L (8-16); Aspartate Amino Transferase 27 U/L (17-59); Bilirubin,Total 0.9 mg/dL (0.2-1.3); Blood Urea Nitrogen 30 mg/dL (9-20); Calcium 9.7 mg/dL (8.4-10.2); Carbon Dioxide 25 mmol/L (22-30); Chloride 102 mmol/L (98-107); Cholesterol 151 mg/dL (0-200); Estimated Glomerular Filt Rate 40; Glucose 163 mg/dL (65-110); HDL Direct 27 mg/dL; Phosphorus 3.3 mg/dL (2.5-4.5); Potassium 4.4 mmol/L (3.4-5.0); Sodium 135 mmol/L (137-145); Triglycerides 187 mg/dL (<150)
[2021-09-17 11:06] LABS: Hemoglobin A1C 6.2 % (<5.7)
[2021-09-17 11:13] LABS: LDL Cholesterol Direct 69 mg/dL; Parathyroid Intact 109.1 pg/mL (7.5-53.5)
[2021-09-17 11:39] LABS: Vitamin D 25 Hydroxy 76.4 ng/mL
[2021-09-17 11:58] LABS: Creatinine Urine 128.4 mg/dL; Total Protein Urine Random 7 mg/dL; Ur Ttl Prot Creatinine Ratio 0.05 mg/mg (0-0.20)
[2021-09-19 23:59] LABS: H pylori, Urea Breath NOT DETECTED (NOT DETECTED)
[2021-09-23 13:09] LABS: Tissue Transglutaminase IgG Ab <1.0 U/mL (<15.0)
[2021-09-24 13:03] LABS: Tissue Transglutaminase IgA Ab <1.0 U/mL (<15.0)
== END 2021-09-17 09:57 | disposition home or self-care (01) ==
PROVIDERS: PCP Internal Medicine; Referring Provider Internal Medicine Nephrology; Visit Provider Nurse Practitioner Family
DX: R14.0 Abdominal distension (gaseous) (principal); I12.9 Hypertensive chronic kidney disease with stage 1 through stage 4 chronic kidney disease, or unspecified chronic kidney disease; N18.32 Chronic kidney disease, stage 3b; N40.0 Benign prostatic hyperplasia without lower urinary tract symptoms; E78.5 Hyperlipidemia, unspecified; E11.9 Type 2 diabetes mellitus without complications; G62.9 Polyneuropathy, unspecified
CPT/HCPCS: 36415; 80053; 80061; 81003; 82306; 82570; 83013; 83036; 83516; 83970; 84100; 84156; 85025

== ENCOUNTER 2021-10-08 09:58 | Outpatient (CLI) | payer MEDICARE, SELFPAY ==
[2021-10-08 12:44] LABS: Prostate Specific Antigen 1.5 ng/mL (< OR = 4.0)
== END 2021-10-08 09:59 | disposition home or self-care (01) ==
PROVIDERS: PCP Internal Medicine; Visit Provider Internal Medicine
DX: Z12.5 Encounter for screening for malignant neoplasm of prostate (principal)
CPT/HCPCS: 36415; 84153; G0103

== ENCOUNTER 2021-11-02 10:39 | Emergency (ER) | payer MEDICARE, SELFPAY ==
--- NOTE | ~2021-11-02 | CT_ITS ---
EXAMINATION: CT cervical spine wo con DATE: 11/02/2021 12:11 INDICATION: Mid and upper back pain. TECHNIQUE: Computed tomography (CT) of the cervical spine was performed without intravenous contrast. Automated exposure control and iterative reconstruction technique were employed. The dose-length pro duct was 570.97 mGy-cm. COMPARISON: Thoracic spine MRI 08/17/2020 FINDINGS: Bone alignment is normal. Vertebral body heights are normal. There is severely decreased di sc height at C4-C5 and C5-C6 and mildly decreased disc height at C6-C7. The following disc levels are specifically discussed: C2-C3: There is mild bilateral uncovertebral joint osteoarthritis. There is severe right and moderate left facet joint osteoarthritis. There is mild right neural foraminal stenosis. There is mild centra l canal stenosis. C3-C4: There is mild bilateral uncovertebral joint osteoarthritis. There is moderate bilateral facet joint osteoarthritis. There is no neural foraminal stenosis. There is mild central canal stenosis. C4-C5: There is severe bilateral uncovertebral joint osteoarthritis. There is mild bilateral facet hilario int osteoarthritis. There is mild bilateral neural foraminal stenosis. There is mild central canal st enosis. C5-C6: There is severe bilateral uncovertebral joint osteoarthritis. There is mild bilateral facet hilario int osteoarthritis. There is mild left neural foraminal stenosis. There is mild central canal stenosi s. C6-C7: There is no uncovertebral joint osteoarthritis. There is mild bilateral facet joint osteoarthr itis. There is no neural foraminal stenosis. There is mild central canal stenosis. C7-T1: There is no uncovertebral joint osteoarthritis. There is severe bilateral facet joint osteoart hritis. There is mild left neural foraminal stenosis. There is no central canal stenosis. IMPRESSION: 1. Severe cervical spondylosis. Reviewed, dictated and finalized at location A.
--- NOTE | ~2021-11-02 | CT_ITS ---
EXAMINATION: CT thoracic spine wo con DATE: 11/02/2021 12:12 INDICATION: Mid to upper back pain. TECHNIQUE: Computed tomography (CT) of the thoracic spine was performed without intravenous contrast. Automated exposure control and iterative reconstruction technique were employed. The dose-length pro duct was 1671.73 mGy-cm. COMPARISON: Thoracic spine MRI 08/17/2020, CT 07/02/2020 FINDINGS: There is 14 degrees dextroscoliosis of thoracic spine. There is mild chronic anterior wedgi ng of T5-T12 vertebral bodies. There is mildly decreased disc height from T3-T4 through T9-T10. There are bridging endplate osteophytes from T6 to T10, consistent with diffuse idiopathic skeletal hypero stosis (DISH). There are laminectomies from T8 to T10. There is multilevel facet joint osteoarthritis , severe on the right at T3-T4 and T4-T5. On the right, there is mild neural foraminal stenosis at T4 -T5. There is no central canal stenosis. IMPRESSION: 1. Mild thoracic spondylosis. 2. Thoracic dextroscoliosis. Reviewed, dictated and finalized at location A.
[2021-11-02 10:41] VITALS: BP 145/98; PULSE 88; RESP 16; TEMP 36.6; O2SAT 100
--- NOTE | 2021-11-02 12:52 | ED.BACK ---
HPI - Back Pain/Injury General Chief Complaint: Back Pain/Injury Stated Complaint: back pain Time Seen by Provider: 11/02/21 11:05 History of Present Illness HPI Narrative: 71-year-old male presents to the emergency room for evaluation of sudden onset of upper back pain. Patient is complaining of a sharp stabbing pain between his shoulder blades that is worse with movement and touch. Patient denies any known injury or trauma. Patient does express a history of a laminectomy of T8-T10. Related Data Home Medications Medication Instructions Recorded Confirmed amlodipine 2.5 mg tablet 2.5 mg PO DAILY 09/03/19 09/30/21 aspirin 81 mg tablet,delayed 81 mg PO DAILY 09/03/19 09/30/21 release ([place] Low Dose Aspirin) atorvastatin 10 mg tablet (Lipitor) 10 mg PO DAILY 09/03/19 09/30/21 cholecalciferol (vitamin D3) 50 50 mcg PO DAILY 09/03/19 09/30/21 mcg (2,000 unit) capsule (Vitamin D3) finasteride 5 mg tablet 5 mg PO DAILY 09/03/19 09/30/21 gemfibrozil 600 mg tablet 600 mg PO BID 09/03/19 09/30/21 glimepiride 4 mg tablet 4 mg PO DAILY 09/03/19 09/30/21 hydrochlorothiazide 12.5 mg tablet 12.5 mg PO DAILY 09/03/19 09/30/21 lisinopril 5 mg tablet 5 mg PO DAILY 09/03/19 09/30/21 mtgiimnh-ynx-imvwm acid 300 1 tablet PO DAILY 09/03/19 09/30/21 mcg-lycopene 600 mcg-lutein 300 mcg tablet (Centrum Silver Men) omega 8-eej-nlc-fish oil 1,000 mg 1 cap PO DAILY 09/03/19 09/30/21 (120 mg-180 mg) capsule (Fish Oil) tamsulosin 0.4 mg capsule 0.4 mg PO DAILY 09/03/19 09/30/21 apple cider vinegar 600 mg capsule mg PO 09/20/21 09/30/21 calcium polycarbophil 625 mg tablet 1,250 mg PO DAILY 09/20/21 09/30/21 Allergies Allergy/AdvReac Type Severity Reaction Status Date / Time No Known Allergies Allergy Verified 11/02/21 11:14 Review of Systems Review of Systems: CONSTITUTIONAL: Denies fever, chills, or sweats. EYES: Denies visual changes, redness, or discharge. ENT: Denies rhinorrhea, congestion, sore throat, or otalgia. CARDIOVASCULAR: Denies chest pain, palpitations, or edema. RESPIRATORY: Denies cough or dyspnea. GASTROINTESTINAL: Denies abdominal pain, nausea, vomiting, or diarrhea. GENITOURINARY: Denies dysuria or hematuria. SKIN: Denies rash or itching. MUSCULOSKELETAL: Reports back pain NEUROLOGIC: Denies headache, numbness, dizziness, or weakness. PSYCHIATRIC: Denies anxiety or depression. [facility] Past Medical History Medical History Abdominal distension (gaseous) Back pain HRNIATED DISC, NEUROMA- FIBROMA T10 BPH (benign prostatic hyperplasia) CKD (chronic kidney disease) stage 3, GFR 30-59 ml/min Diabetes HTN (hypertension) Hx of myocardial infarction Hypercholesterolemia Obesity Surgical History Surgical History History of back surgery tumor removal from spine, [place], [place] Family History Family History Father Diabetes mellitus Pancreatic cancer Mother Multiple sclerosis Grandparent Pancreatic cancer Social History Social History Smoking status: Never smoker Alcohol intake: never 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 HEAD: Normocephalic, atraumatic. EYES: Conjunctivae normal, PERRLA and EOMI. CHEST: Clear to auscultation. No respiratory distress. No wheezes rales or rhonchi. No tenderness. HEART: Regular rate and rhythm. No murmur heard. Normal peripheral pulses. BACK: No CVA tenderness; exquisite midline thoracic tenderness that extends to the parathoracic muscles. No obvious bony abnormality or step-offs. Limited range of motion due to pain EXTREMITIES: Normal range of motion. No edema. No clubbing or cyanosis SKIN: Warm, dry, n
[2021-11-02 13:54] VITALS: BP 119/71; PULSE 78; RESP 20; O2SAT 98
== END 2021-11-02 13:55 | disposition home or self-care (01) ==
PROVIDERS: Emergency Provider Nurse Practitioner Family; PCP Internal Medicine
DX: M54.6 Pain in thoracic spine (principal); I12.9 Hypertensive chronic kidney disease with stage 1 through stage 4 chronic kidney disease, or unspecified chronic kidney disease; N18.30 Chronic kidney disease, stage 3 unspecified; E11.22 Type 2 diabetes mellitus with diabetic chronic kidney disease; I25.2 Old myocardial infarction; E78.00 Pure hypercholesterolemia, unspecified; E66.9 Obesity, unspecified; Z68.28 Body mass index [BMI] 28.0-28.9, adult; Z79.82 Long term (current) use of aspirin; Z79.84 Long term (current) use of oral hypoglycemic drugs
CPT/HCPCS: 72125; 72128; 99284

== ENCOUNTER 2021-11-10 11:44 | Outpatient (CLI) | payer MEDICARE, SELFPAY ==
--- NOTE | ~2021-11-10 | MR_ITS ---
EXAMINATION: MR thoracic spine wo con DATE: 11/10/2021 12:42 INDICATION: Thoracic back pain. TECHNIQUE: Magnetic resonance imaging (MRI) of the thoracic spine was performed without intravenous c ontrast. Sagittal localizer T1-weighted FSE of the cervical spine was obtained. Thoracic spine sequen shayla included sagittal T2-weighted FSE, sagittal T1-weighted FSE, sagittal T2-weighted FS FSE, and axi al T2-weighted FSE. COMPARISON: Thoracic spine MRI 08/17/2020 FINDINGS: There is 10 degrees dextroscoliosis of lower thoracic spine and 9 degrees levocurvature of upper thoracic spine. There is mild chronic anterior wedging of T5 vertebral body. There is mildly de creased disc height at T5-T6, T6-T7, T7-T8, T8-T9, and T9-T10. The discs do not extend beyond the end plate margins. There is multilevel facet joint osteoarthritis, severe on the right at T3-T4 and T4-T5 . On the right, there is mild neural foraminal stenosis at T4-T5 and T5-T6. There is no central canal stenosis. The spinal cord signal intensity is normal. The conus medullaris is at L1. IMPRESSION: 1. Mild thoracic spondylosis, stable from 08/17/2020. 2. Scoliosis. Reviewed, dictated and finalized at location A.
--- NOTE | ~2021-11-10 | MR_ITS ---
EXAMINATION: MR cervical spine wo con DATE: 11/10/2021 12:41 INDICATION: Neck pain. TECHNIQUE: Magnetic resonance imaging (MRI) of the cervical spine was performed without intravenous c ontrast. Sequences included sagittal T2-weighted FSE, sagittal T2-weighted FS FSE, sagittal T1-weight ed FSE, axial MERGE, and axial T2-weighted FSE. COMPARISON: CT cervical spine 11/02/2021 FINDINGS: Bone alignment is normal. Vertebral body heights are normal. There is severely decreased di sc height at C4-C5 and C5-C6. The spinal cord signal intensity is normal. The following disc levels a re specifically discussed: C2-C3: There is a central protrusion. There is no uncovertebral joint osteoarthritis. There is severe right and moderate left facet joint osteoarthritis. There is no neural foraminal stenosis. There is no central canal stenosis. C3-C4: There is a central extrusion. There is mild bilateral uncovertebral joint osteoarthritis. Ther e is severe bilateral facet joint osteoarthritis. There is no neural foraminal stenosis. There is mil d central canal stenosis. C4-C5: The disc is bulging. There is severe bilateral uncovertebral joint osteoarthritis. There is mo derate bilateral facet joint osteoarthritis. There is mild bilateral neural foraminal stenosis. There is mild central canal stenosis with ventral indentation of the spinal cord. C5-C6: The disc is bulging. There is severe bilateral uncovertebral joint osteoarthritis. There is mi ld bilateral facet joint osteoarthritis. There is mild bilateral neural foraminal stenosis. There is mild central canal stenosis. C6-C7: There is a central protrusion. There is mild bilateral uncovertebral joint osteoarthritis. The re is mild bilateral facet joint osteoarthritis. There is no neural foraminal stenosis. There is mild central canal stenosis. C7-T1: There is a central protrusion. There is no uncovertebral joint osteoarthritis. There is severe bilateral facet joint osteoarthritis. There is mild bilateral neural foraminal stenosis. There is no central canal stenosis. IMPRESSION: 1. Severe cervical spondylosis. Reviewed, dictated and finalized at location A.
== END 2021-11-10 11:45 | disposition home or self-care (01) ==
PROVIDERS: PCP Internal Medicine; Visit Provider Internal Medicine
DX: M47.894 Other spondylosis, thoracic region (principal); M47.892 Other spondylosis, cervical region; M41.9 Scoliosis, unspecified
CPT/HCPCS: 72141; 72146

== ENCOUNTER 2021-11-19 09:43 | Outpatient (CLI) | payer MEDICARE, SELFPAY ==
[2021-11-19 10:58] LABS: INR 1.1; Prothrombin Time 13.7 Seconds (11.1-14.7)
[2021-11-19 11:01] LABS: Anion Gap 8 mmol/L (8-16); Blood Urea Nitrogen 25 mg/dL (9-20); Calcium 9.9 mg/dL (8.4-10.2); Carbon Dioxide 25 mmol/L (22-30); Chloride 106 mmol/L (98-107); Estimated Glomerular Filt Rate 50; Glucose 160 mg/dL (65-110); Potassium 4.4 mmol/L (3.4-5.0); Sodium 139 mmol/L (137-145)
== END 2021-11-19 09:44 | disposition home or self-care (01) ==
LOC: ANHSURGERY 10:03
PROVIDERS: Anesthesiology; PCP Internal Medicine; Visit Provider Surgery
DX: Z01.818 Encounter for other preprocedural examination (principal); N18.30 Chronic kidney disease, stage 3 unspecified; E11.9 Type 2 diabetes mellitus without complications
CPT/HCPCS: 36415; 80048; 85610; 85730

== ENCOUNTER 2021-11-25 01:17 | Day surgery (SDC) | payer MEDICARE, SELFPAY ==
[2021-11-17 15:34] VITALS: BMI 28.1
--- NOTE | 2021-11-17 16:09 | PC.NURSE ---
Report to the Outpatient Waiting Room, entrance under the green pavilion located off [facility], at time __11:30AM on date _11/25/21 . OR Time: __1:30PM . Time changes happen often and if your time is changed the preop area will call you the afternoon before. - You and your visitor will be asked to self-screen and do not enter if you have any COVID symptoms. - Only one visitor and NO children visitors are allowed at this time. - The patient visitor is requested to leave or wait in car when not with patient due to restrictions. - A mask is required within the hospital. Patients may have clear liquids (water, carbonated beverages, clear teas, apple juice) until 3 hours prior to surgery with a maximum of 20 ounces. - No food from midnight until time of surgery Take the following medications with a SIP of water the morning of surgery: __AMLODIPINE Medications to discontinue per physician HOLD ALL VITAMINS/SUPPLEMENTS 3 DAYS PRE-OP Date to take last dose 11/21/21 Please no make-up, nail wolof, hairspray, perfume, deodorant, or body powder the day of surgery. No jewelry (including any body piercings) or valuables the day of surgery, leave them at home. Please take a shower or bath the night before, or the morning of, surgery with an antibacterial soap. Wear comfortable, loose fitting clothing. Children are encouraged to wear pajamas. - Jewelry must be removed prior to entering the operating room. Rings and piercings that are not removed may be cut off. - The hospital will not accept responsibility for valuables. - Please leave all valuables, including medications, at home the day of surgery. If you are going home after surgery, a licensed bus driver school must drive you home. - NO public transportation without another adult. - We recommend that an adult stay with you for 24 hours following discharge. - We also recommend that you do not drive, make important decision, drink alcoholic beverages, or take any drugs that were not prescribed by your health care provider for at least 24 hours after your discharge time. Follow any additional instructions given to you from your surgeon. If you or anyone in your household have experienced Covid symptoms in the past week, please notify your surgeon or the nurse liaison at the phone number below for possible testing. Telephone instructions given to ____PATIENT and asked if any additional questions and then verbalized understanding. Patient advised to call surgeon office or pre surgery nurse liaison [phone] if any additional questions.
--- NOTE | 2021-11-23 15:58 | PM.SD2 ---
Same Day Admit/Disch: HPI History of Present Illness Chief complaint: right lower quadrant pain Narrative: Keyshawn Sanders is a 71 year old male who was having right lower quadrant abdominal pain and an enlarging bulge or mass there and in the right lower quadrant of the abdomen. He thinks that this has been there for over a year. He was seen in the office and did have a bulging mass in the right groin that was more consistent with a lipoma than hernia. He had a CT scan of the abdomen and pelvis done on August 22, 2021 which was read as large fat containing right inguinal hernia. 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 This was done at a hospital in [place]. He has had chronic pain following the surgery since then. I reviewed his CT scan the day after his office visit as the fatty mass appeared more extensive than our hernia. I reviewed this with the radiologist Dr. Santana. He agreed and change the report saying this was a large intramuscular lipoma in the right lower quadrant and right groin. This lipoma was actually unchanged from CT scan of 07/29/2019. I called the patient and discussed these findings with him. Since he has been having pain in the area he wishes to proceed with excision of this intramuscular lipoma of the right lower quadrant. He is taken to surgery at this time for excision. [facility] Past Medical History Medical History Abdominal distension (gaseous) Back pain HRNIATED DISC, NEUROMA- FIBROMA T10 BPH (benign prostatic hyperplasia) CKD (chronic kidney disease) stage 3, GFR 30-59 ml/min Diabetes HTN (hypertension) Hx of myocardial infarction Hypercholesterolemia Obesity Surgical History Surgical History History of back surgery tumor removal from spine, [place], [place] Family History Family History Father Diabetes mellitus Pancreatic cancer Mother Multiple sclerosis Grandparent Pancreatic cancer Social History Social History Smoking status: Never smoker Alcohol intake: never Substance use: never Living arrangements: alone 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 Spiritual care concerns: No Same Day Admit/Disch: Med Pre-admit Medications Home Medications Medication Instructions Recorded Confirmed Type amlodipine 2.5 mg tablet 2.5 mg PO DAILY 09/03/19 11/17/21 History aspirin 81 mg tablet,delayed 81 mg PO DAILY 09/03/19 11/17/21 History release (Talon Low Dose Aspirin) atorvastatin 10 mg tablet (Lipitor) 10 mg PO DAILY 09/03/19 11/17/21 History cholecalciferol (vitamin D3) 50 50 mcg PO DAILY 09/03/19 11/17/21 History mcg (2,000 unit) capsule (Vitamin D3) finasteride 5 mg tablet 5 mg PO DAILY 09/03/19 11/17/21 History gemfibrozil 600 mg tablet 600 mg PO BID 09/03/19 11/17/21 History glimepiride 4 mg tablet 4 mg PO DAILY 09/03/19 11/17/21 History hydrochlorothiazide 12.5 mg tablet 12.5 mg PO DAILY 09/03/19 11/17/21 History aqawfnlu-qal-tdnlr acid 300 1 tablet PO DAILY 09/03/19 11/17/21 History mcg-lycopene 600 mcg-lutein 300 mcg tablet (Centrum Silver Men) omega 2-oum-qzn-fish oil 1,000 mg 1 cap PO DAILY 09/03/19 11/17/21 History (120 mg-180 mg) capsule (Fish Oil) tamsulosin 0.4 mg capsule 0.4 mg PO DAILY 09/03/19 11/17/21 History apple cider vinegar 600 mg capsule 900 mg PO QAM 09/20/21 11/17/21 History calcium polycarbophil 625 mg 1,250 mg PO DAILY 09/20/21 11/17/21 History tablet (FiberCon) acetaminophen 500 mg tablet 500 mg PO Q6H PRN Pain 11/17/21 11/17/21 History lisinopril 2.5 mg tablet 2.5 mg PO QAM 11/17/21 11/17/21 History hydrocodone 5 mg-acetaminophen 325 1 - 2 tablet PO Q6H PRN pain #10 11/25/21 Rx mg tablet tabs ibuprofen 600 mg tablet 600 mg PO Q6H FL
--- NOTE | 2021-11-24 13:58 | WPDANESEPPF ---
Anes - Initial Pre Proc Eval Procedure: Operation Date: 11/25/21 13:30 Proposed Procedures p Excision of Right Lower Quadrant Intramuscular Lipoma - Elio Loaiza MD Date/Time: 11/24/21 13:58 Surgeon: Elio Loaiza MD Pre Op Diagnosis: right lower quadrant pain Patient Data Age: 71 Gender: M Height: 1.78 m Weight: 89 kg Allergies Allergy/AdvReac Type Severity Reaction Status Date / Time No Known Allergies Allergy Verified 11/17/21 15:23 Home Medications Medication Instructions Recorded Confirmed Type amlodipine 2.5 mg tablet 2.5 mg PO DAILY 09/03/19 11/17/21 History aspirin 81 mg tablet,delayed 81 mg PO DAILY 09/03/19 11/17/21 History release (Talon Low Dose Aspirin) atorvastatin 10 mg tablet (Lipitor) 10 mg PO DAILY 09/03/19 11/17/21 History cholecalciferol (vitamin D3) 50 50 mcg PO DAILY 09/03/19 11/17/21 History mcg (2,000 unit) capsule (Vitamin D3) finasteride 5 mg tablet 5 mg PO DAILY 09/03/19 11/17/21 History gemfibrozil 600 mg tablet 600 mg PO BID 09/03/19 11/17/21 History glimepiride 4 mg tablet 4 mg PO DAILY 09/03/19 11/17/21 History hydrochlorothiazide 12.5 mg tablet 12.5 mg PO DAILY 09/03/19 11/17/21 History otmskzlo-jkg-tiuuf acid 300 1 tablet PO DAILY 09/03/19 11/17/21 History mcg-lycopene 600 mcg-lutein 300 mcg tablet (Centrum Silver Men) omega 8-gdp-xqu-fish oil 1,000 mg 1 cap PO DAILY 09/03/19 11/17/21 History (120 mg-180 mg) capsule (Fish Oil) tamsulosin 0.4 mg capsule 0.4 mg PO DAILY 09/03/19 11/17/21 History apple cider vinegar 600 mg capsule 900 mg PO QAM 09/20/21 11/17/21 History calcium polycarbophil 625 mg 1,250 mg PO DAILY 09/20/21 11/17/21 History tablet (FiberCon) acetaminophen 500 mg tablet 500 mg PO Q6H PRN Pain 11/17/21 11/17/21 History lisinopril 2.5 mg tablet 2.5 mg PO QAM 11/17/21 11/17/21 History Patient hx anesthesia problems: none Family hx anesthesia problems: none Results Review: All pre-operative results and documents have been reviewed as part of the pre-operative evaluation. [facility] Past Medical History Medical History Abdominal distension (gaseous) Back pain HRNIATED DISC, NEUROMA- FIBROMA T10 BPH (benign prostatic hyperplasia) CKD (chronic kidney disease) stage 3, GFR 30-59 ml/min Diabetes HTN (hypertension) Hx of myocardial infarction Hypercholesterolemia Obesity Surgical History Surgical History History of back surgery tumor removal from spine, [place], [place] Family History Family History Father Diabetes mellitus Pancreatic cancer Mother Multiple sclerosis Grandparent Pancreatic cancer Social History Social History Smoking status: Never smoker Alcohol intake: never Substance use: never Living arrangements: alone 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 Informed Consent: The patient's anesthetic plan and its attendant risks and benefits were discussed with the patient/family/POA. Questions were solicited and answers provided to the satisfaction of the patient/family/POA.
[2021-11-25] VITALS (10 sets, daily range): BP systolic 99–137; BP diastolic 66–99; PULSE 53–70; RESP 12–18; TEMP 36.3–36.6; O2SAT 97–100
[2021-11-25] MEDS: LACTATED RINGERS 1,000 ML 30 ML IV CONT (12:08)
[2021-11-25 12:17] LABS: Glucose Point of Care 92 mg/dl (65-105)
--- NOTE | 2021-11-25 14:07 | WPDHPUPDATE1 ---
History and Physical Update Update Date/Time: 11/25/21 14:07 After office visit, review of CT scan showed that patient did have a large right lower quadrant intramuscular lipoma. After discussion, he is taken to surgery at this time for excision. I have explained the procedure to him. I also explained that it may or may not relieve the right lower quadrant pain and also will not relieve his thoracic back pain. I explained he may need a drain after surgery. All questions were answered. He wishes to go ahead. History and Physical has been reviewed, including an updated exam of the patient. There are NO changes in the patient's condition. Risks, benefits, and alternatives have been discussed and questions answered. Patient agrees to proceed with procedure.
[2021-11-25] MEDS: ceFAZolin 2 GM/D5W 50 ML 2 GM/50 ML BAG IVPB (14:19)
[2021-11-25] MEDS: BUPIVACAINE/EPINEPHRINE 0.25% 50 ML VIAL 40 ML INFILTRATE (15:22)
--- NOTE | 2021-11-25 15:23 | W.PM.PROC2 ---
Procedure Note - Detailed Date of Procedure 11/25/21 Pre-op Diagnosis Right lower quadrant intramuscular lipoma Post-op Diagnosis Same Procedure Performed Excision large right lower quadrant intramuscular lipoma Surgeon Elio Loaiza MD Gr[employer] 5 Teacher Rosa Watters, RICHARD Anesthesia General (LMA) and Local (0.25% Marcaine with epinephrine) Indications Patient was seen in the office with complaints of right lower quadrant pain end question of a right inguinal hernia. Exam and CT scan however showed a very large intramuscular right lower quadrant lipoma. He is taken to surgery now for excision. Findings Lipoma was removed intact. It measured 15 x 9 x 6 cm. Description of Procedure Patient was checked in the preoperative holding area. The proposed incision was marked on the skin. He was then taken to the operating room and anesthesia was introduced. Local anesthesia was infiltrated over the area of the anticipated incision and in the deeper subcutaneous tissues. Incision was made and we dissected through the subcutaneous down to the external oblique. The lipoma was palpable deep to the external oblique. I then opened the external oblique and a lipoma was seen directly under it. I freed the lipoma from the leaves of the external oblique fascia. There was some muscular bands along the side of the lipoma most likely the internal oblique and possibly some of the transversalis fascia. I used combination of blunt and sharp dissection. I excised the lipoma completely. There was no bleeding associated. Cautery was used for most of the dissection that was done sharply. I measured the lipoma after excision. It was sent to pathology in formalin. I then checked the wound carefully. It was adequately hemostatic. The external oblique fascia was then closed with bidirectional running 3-0 Vicryl suture. Riccardo's fascia was closed with interrupted 3-0 Vicryl suture. The skin was closed loosely with interrupted 4-0 Vicryl subcuticular skin suture. The skin was closed finally with a running 4-0 Monocryl skin suture. The wound was dressed with Exofin surgical adhesive. Patient was awakened and taken to recovery in good condition. Sponge and needle counts were correct x2. Estimated Blood Loss -5 Pathology Yes (Large intramuscular lipoma) Complications No immediate complications Condition Stable Disposition PACU [facility] Billing Surgery - Charge Forward: Surgery Billing (Excision right lower quadrant 15 x 9 x 6 cm intramuscular lipoma)
[2021-11-25 15:41] LABS: Glucose Point of Care 89 mg/dl (65-105)
--- NOTE | 2021-11-25 17:21 | SUR.PHASEII ---
Patient vitals are stable. He's unhooked from the monitors and waiting for ride.
== END 2021-11-25 17:45 | disposition home or self-care (01) ==
PROVIDERS: PCP Internal Medicine; Visit Provider Surgery
PROC: (CPT 22901; principal; 2021-11-25 13:30)
DX: D17.1 Benign lipomatous neoplasm of skin and subcutaneous tissue of trunk (principal); I12.9 Hypertensive chronic kidney disease with stage 1 through stage 4 chronic kidney disease, or unspecified chronic kidney disease; E11.22 Type 2 diabetes mellitus with diabetic chronic kidney disease; N18.30 Chronic kidney disease, stage 3 unspecified; E78.00 Pure hypercholesterolemia, unspecified; I25.2 Old myocardial infarction; N40.0 Benign prostatic hyperplasia without lower urinary tract symptoms; Z79.84 Long term (current) use of oral hypoglycemic drugs; Z79.82 Long term (current) use of aspirin
CPT/HCPCS: 22901; 36415; 80048; 82948; 85610; 85730; 88304; J0690; J2704; J3010; J7120

== ENCOUNTER 2021-12-21 10:41 | Outpatient (CLI) | payer MEDICARE, SELFPAY ==
[2021-12-21 11:08] LABS: Basophils Percent Auto 0.5 % (0.2-1.2); Eosinophils Absolute Auto 0.1 K/mm3 (0-0.3); Eosinophils Percent Auto 1.5 % (0-4.4); Immature Granulocyte Absolute 0.02 K/mm3 (0.00-0.031); Immature Granulocyte Percent A 0.3 % (0-0.5); Lymphocytes Absolute Auto 1.97 K/mm3 (0.9-3.2); Lymphocytes Percent Auto 30.5 % (18.3-44.2); Mean Corpuscular Hemoglobin 30.5 pg (26-34); Mean Corpuscular Volume 87.1 fl (80-100); Mean Platelet Volume 10.8 fl (7.4-10.4); Monocytes Absolute Auto 0.5 K/mm3 (0.1-0.6); Monocytes Percent Auto 7.3 % (2.6-8.5); Neutrophils Absolute Auto 3.9 K/mm3 (1.3-6.7); Neutrophils Percent Auto 59.9 % (45.5-73.1); Platelet Count Result 187 k/mm3 (150-375); Red Blood Count 4.59 M/mm3 (4.6-6.20); White Blood Count 6.5 K/mm3 (4.5-10.0)
[2021-12-21 11:18] LABS: Creatinine Urine 106.3 mg/dL; Total Protein Urine Random 9 mg/dL; Ur Ttl Prot Creatinine Ratio 0.08 mg/mg (0-0.20)
[2021-12-21 11:20] LABS: Alanine Aminotransferase 20 U/L (6-50); Albumin Level 4.7 g/dL (3.5-5.1); Alkaline Phosphatase 97 U/L (38-126); Anion Gap 14 mmol/L (8-16); Aspartate Amino Transferase 22 U/L (17-59); Bilirubin,Total 0.7 mg/dL (0.2-1.3); Blood Urea Nitrogen 24 mg/dL (9-20); Calcium 9.4 mg/dL (8.4-10.2); Carbon Dioxide 23 mmol/L (22-30); Chloride 101 mmol/L (98-107); Cholesterol 154 mg/dL (0-200); Estimated Glomerular Filt Rate 46; Glucose 242 mg/dL (65-110); HDL Direct 30 mg/dL; Phosphorus 3.8 mg/dL (2.5-4.5); Potassium 4.4 mmol/L (3.4-5.0); Sodium 138 mmol/L (137-145); Triglycerides 256 mg/dL (<150)
[2021-12-21 11:22] LABS: Appearance Urine Clear (Clear); Bilirubin Urine Negative (Negative); Blood Urine Negative (Negative); Color Urine Yellow (Yellow); Glucose Urine UA Trace mg/dL (Negative); Ketones Urine Negative (Negative); Leukocyte Esterase Ur Negative LEU/UL (NEGATIVE); Nitrate Urine Negative (Negative); Protein Urine Negative (Negative); Urobilinogen Urine 0.2 mg/dL (<2.0); pH Urine 5.5 (5.0-9.0)
[2021-12-21 11:31] LABS: LDL Cholesterol Direct 85 mg/dL; Parathyroid Intact 119.8 pg/mL (7.5-53.5)
[2021-12-21 11:36] LABS: Hemoglobin A1C 6.8 % (<5.7)
[2021-12-21 12:14] LABS: WBC Urine 0-3 /hpf (0-3)
[2021-12-21 12:21] LABS: Vitamin D 25 Hydroxy 46.8 ng/mL
[2021-12-21 12:38] LABS: Add Urine Microscopic? YES
== END 2021-12-21 10:42 | disposition home or self-care (01) ==
PROVIDERS: PCP Internal Medicine; Visit Provider Internal Medicine Nephrology
DX: E11.9 Type 2 diabetes mellitus without complications (principal); E87.5 Hyperkalemia; N40.0 Benign prostatic hyperplasia without lower urinary tract symptoms; E78.5 Hyperlipidemia, unspecified; M51.9 Unspecified thoracic, thoracolumbar and lumbosacral intervertebral disc disorder; I25.10 Atherosclerotic heart disease of native coronary artery without angina pectoris; G62.9 Polyneuropathy, unspecified; I12.9 Hypertensive chronic kidney disease with stage 1 through stage 4 chronic kidney disease, or unspecified chronic kidney disease; N18.32 Chronic kidney disease, stage 3b
CPT/HCPCS: 36415; 80053; 80061; 81001; 82306; 82570; 83036; 83970; 84100; 84156; 85025

== ENCOUNTER 2022-03-28 10:29 | Outpatient (CLI) | payer MEDICARE, SELFPAY ==
[2022-03-28 11:24] LABS: Basophils Percent Auto 0.3 % (0.2-1.2); Eosinophils Absolute Auto 0.2 K/mm3 (0-0.3); Eosinophils Percent Auto 1.9 % (0-4.4); Hematocrit 41.9 % (42.0-52.0); Hemoglobin 14.6 g/dL (14.0-18.0); Immature Granulocyte Absolute 0.03 K/mm3 (0.00-0.031); Immature Granulocyte Percent A 0.3 % (0-0.5); Lymphocytes Absolute Auto 2.41 K/mm3 (0.9-3.2); Lymphocytes Percent Auto 26.9 % (18.3-44.2); Mean Corpuscular HGB Conc 34.8 g/dl (32-36); Mean Corpuscular Hemoglobin 30.9 pg (26-34); Mean Corpuscular Volume 88.6 fl (80-100); Mean Platelet Volume 10.4 fl (7.4-10.4); Monocytes Absolute Auto 0.5 K/mm3 (0.1-0.6); Neutrophils Absolute Auto 5.8 K/mm3 (1.3-6.7); Neutrophils Percent Auto 64.6 % (45.5-73.1); Platelet Count Result 213 k/mm3 (150-375); Red Blood Count 4.73 M/mm3 (4.6-6.20); Red Cell Distribution Width 12.7 % (11.5-14.5)
[2022-03-28 11:25] LABS: Creatinine Urine 72.8 mg/dL; Total Protein Urine Random 10 mg/dL; Ur Ttl Prot Creatinine Ratio 0.14 mg/mg (0-0.20)
[2022-03-28 11:28] LABS: Alanine Aminotransferase 23 U/L (6-50); Alkaline Phosphatase 106 U/L (38-126); Anion Gap 8 mmol/L (8-16); Aspartate Amino Transferase 28 U/L (17-59); Bilirubin,Total 0.7 mg/dL (0.2-1.3); Blood Urea Nitrogen 29 mg/dL (9-20); Calcium 10.1 mg/dL (8.4-10.2); Carbon Dioxide 27 mmol/L (22-30); Chloride 100 mmol/L (98-107); Cholesterol 171 mg/dL (0-200); Estimated Glomerular Filt Rate 40; Glucose 102 mg/dL (65-110); HDL Direct 34 mg/dL; Phosphorus 3.3 mg/dL (2.5-4.5); Potassium 4.2 mmol/L (3.4-5.0); Sodium 135 mmol/L (137-145); Triglycerides 137 mg/dL (<150)
[2022-03-28 11:39] LABS: LDL Cholesterol Direct 97 mg/dL
[2022-03-28 11:49] LABS: Appearance Urine Clear (Clear); Bilirubin Urine Negative (Negative); Blood Urine Negative (Negative); Color Urine Yellow (Yellow); Glucose Urine UA Negative (Negative); Ketones Urine Negative (Negative); Leukocyte Esterase Ur Negative LEU/UL (NEGATIVE); Nitrate Urine Negative (Negative); Protein Urine Negative (Negative); Urobilinogen Urine 0.2 mg/dL (<2.0)
[2022-03-28 11:59] LABS: Add Urine Microscopic? NO
[2022-03-28 12:02] LABS: Vitamin D 25 Hydroxy 48.1 ng/mL
[2022-03-28 12:29] LABS: Hemoglobin A1C 6.9 % (<5.7)
== END 2022-03-28 10:30 | disposition home or self-care (01) ==
PROVIDERS: PCP Internal Medicine; Visit Provider Internal Medicine Nephrology
DX: I25.10 Atherosclerotic heart disease of native coronary artery without angina pectoris (principal); E87.5 Hyperkalemia; E11.9 Type 2 diabetes mellitus without complications; E78.5 Hyperlipidemia, unspecified; I12.9 Hypertensive chronic kidney disease with stage 1 through stage 4 chronic kidney disease, or unspecified chronic kidney disease; N18.32 Chronic kidney disease, stage 3b
CPT/HCPCS: 36415; 80053; 80061; 81003; 82306; 82570; 83036; 84100; 84156; 85025

== ENCOUNTER 2022-07-05 11:43 | Outpatient (CLI) | payer MEDICARE, SELFPAY ==
[2022-07-05 12:59] LABS: Basophils Percent Auto 0.4 % (0.2-1.2); Eosinophils Absolute Auto 0.2 K/mm3 (0-0.3); Eosinophils Percent Auto 2.2 % (0-4.4); Hemoglobin 14.4 g/dL (14.0-18.0); Immature Granulocyte Absolute 0.03 K/mm3 (0.00-0.031); Immature Granulocyte Percent A 0.4 % (0-0.5); Lymphocytes Absolute Auto 2.31 K/mm3 (0.9-3.2); Lymphocytes Percent Auto 31.1 % (18.3-44.2); Mean Corpuscular HGB Conc 34.3 g/dl (32-36); Mean Corpuscular Hemoglobin 30.3 pg (26-34); Mean Corpuscular Volume 88.4 fl (80-100); Mean Platelet Volume 10.6 fl (7.4-10.4); Monocytes Absolute Auto 0.5 K/mm3 (0.1-0.6); Monocytes Percent Auto 6.2 % (2.6-8.5); Neutrophils Absolute Auto 4.4 K/mm3 (1.3-6.7); Neutrophils Percent Auto 59.7 % (45.5-73.1); Platelet Count Result 224 k/mm3 (150-375); Red Blood Count 4.75 M/mm3 (4.6-6.20); Red Cell Distribution Width 12.4 % (11.5-14.5); White Blood Count 7.4 K/mm3 (4.5-10.0)
[2022-07-05 13:01] LABS: Appearance Urine Clear (Clear); Bilirubin Urine Negative (Negative); Blood Urine Negative (Negative); Color Urine Yellow (Yellow); Glucose Urine UA Negative (Negative); Ketones Urine Negative (Negative); Leukocyte Esterase Ur Negative LEU/UL (NEGATIVE); Nitrate Urine Negative (Negative); Protein Urine Negative (Negative); Specific Grav Ur 1.016 (1.001-1.035); Urobilinogen Urine 0.2 mg/dL (<2.0); pH Urine 5.5 (5.0-9.0)
[2022-07-05 13:03] LABS: Add Urine Microscopic? NO
[2022-07-05 13:05] LABS: Creatinine Urine 133.8 mg/dL; Total Protein Urine Random 7 mg/dL; Ur Ttl Prot Creatinine Ratio 0.05 mg/mg (0-0.20)
[2022-07-05 13:09] LABS: Alanine Aminotransferase 22 U/L (6-50); Albumin Level 4.7 g/dL (3.5-5.1); Alkaline Phosphatase 78 U/L (38-126); Anion Gap 7 mmol/L (8-16); Aspartate Amino Transferase 27 U/L (17-59); Bilirubin,Total 0.5 mg/dL (0.2-1.3); Blood Urea Nitrogen 27 mg/dL (9-20); Calcium 9.8 mg/dL (8.4-10.2); Carbon Dioxide 30 mmol/L (22-30); Chloride 103 mmol/L (98-107); Cholesterol 154 mg/dL (0-200); Estimated Glomerular Filt Rate 43; Glucose 77 mg/dL (65-110); HDL Direct 29 mg/dL; Phosphorus 3.3 mg/dL (2.5-4.5); Sodium 140 mmol/L (137-145); Triglycerides 138 mg/dL (<150)
[2022-07-05 13:10] LABS: Hemoglobin A1C 6.2 % (<5.7)
[2022-07-05 13:20] LABS: LDL Cholesterol Direct 90 mg/dL; Parathyroid Intact 86.7 pg/mL (7.5-53.5)
== END 2022-07-05 11:44 | disposition home or self-care (01) ==
PROVIDERS: PCP Internal Medicine; Referring Provider Internal Medicine; Visit Provider Internal Medicine Nephrology
DX: I25.10 Atherosclerotic heart disease of native coronary artery without angina pectoris (principal); E87.5 Hyperkalemia; E78.5 Hyperlipidemia, unspecified; I12.9 Hypertensive chronic kidney disease with stage 1 through stage 4 chronic kidney disease, or unspecified chronic kidney disease; N18.32 Chronic kidney disease, stage 3b; E11.9 Type 2 diabetes mellitus without complications; G62.9 Polyneuropathy, unspecified; N40.0 Benign prostatic hyperplasia without lower urinary tract symptoms
CPT/HCPCS: 36415; 80053; 80061; 81003; 82306; 82570; 83036; 83970; 84100; 84156; 85025

== ENCOUNTER 2022-11-14 08:50 | Outpatient (CLI) | payer MEDICARE, SELFPAY ==
[2022-11-14 09:56] LABS: Appearance Urine Clear (Clear); Bilirubin Urine Negative (Negative); Blood Urine Negative (Negative); Color Urine Yellow (Yellow); Glucose Urine UA Negative (Negative); Ketones Urine Negative (Negative); Leukocyte Esterase Ur Negative LEU/UL (NEGATIVE); Nitrate Urine Negative (Negative); Protein Urine Negative (Negative); Specific Grav Ur 1.016 (1.001-1.035); Urobilinogen Urine 0.2 mg/dL (<2.0)
[2022-11-14 09:59] LABS: Add Urine Microscopic? YES
[2022-11-14 10:08] LABS: Basophils Percent Auto 0.3 % (0.2-1.2); Eosinophils Absolute Auto 0.1 K/mm3 (0-0.3); Eosinophils Percent Auto 1.3 % (0-4.4); Hematocrit 44.6 % (42.0-52.0); Hemoglobin 15.4 g/dL (14.0-18.0); Immature Granulocyte Absolute 0.02 K/mm3 (0.00-0.031); Immature Granulocyte Percent A 0.3 % (0-0.5); Lymphocytes Absolute Auto 2.38 K/mm3 (0.9-3.2); Lymphocytes Percent Auto 30.6 % (18.3-44.2); Mean Corpuscular HGB Conc 34.5 g/dl (32-36); Mean Corpuscular Volume 89.7 fl (80-100); Mean Platelet Volume 10.8 fl (7.4-10.4); Monocytes Absolute Auto 0.5 K/mm3 (0.1-0.6); Monocytes Percent Auto 6.9 % (2.6-8.5); Neutrophils Absolute Auto 4.7 K/mm3 (1.3-6.7); Neutrophils Percent Auto 60.6 % (45.5-73.1); Platelet Count Result 210 k/mm3 (150-375); Red Blood Count 4.97 M/mm3 (4.6-6.20); Red Cell Distribution Width 12.4 % (11.5-14.5); White Blood Count 7.8 K/mm3 (4.5-10.0)
[2022-11-14 10:11] LABS: Hemoglobin A1C 5.9 % (<5.7)
[2022-11-14 10:13] LABS: Alanine Aminotransferase 19 U/L (6-50); Alkaline Phosphatase 84 U/L (38-126); Anion Gap 8 mmol/L (8-16); Aspartate Amino Transferase 26 U/L (17-59); Bilirubin,Total 0.8 mg/dL (0.2-1.3); Blood Urea Nitrogen 39 mg/dL (9-20); Calcium 10.7 mg/dL (8.4-10.2); Carbon Dioxide 25 mmol/L (22-30); Chloride 103 mmol/L (98-107); Cholesterol 167 mg/dL (0-200); Estimated Glomerular Filt Rate 40; Glucose 80 mg/dL (65-110); HDL Direct 34 mg/dL; Phosphorus 3.9 mg/dL (2.5-4.5); Potassium 4.5 mmol/L (3.4-5.0); Sodium 136 mmol/L (137-145); Triglycerides 157 mg/dL (<150)
[2022-11-14 10:24] LABS: LDL Cholesterol Direct 94 mg/dL
[2022-11-14 10:26] LABS: Creatinine Urine 85.3 mg/dL; Parathyroid Intact 70.2 pg/mL (7.5-53.5)
[2022-11-14 10:30] LABS: MALB Creatinine Ratio 7.5 mg/g (0-30); Microalbumin Urine Random 6.4 mg/L (0-16.7)
[2022-11-14 10:40] LABS: Vitamin D 25 Hydroxy 68.2 ng/mL
== END 2022-11-14 08:51 | disposition home or self-care (01) ==
LOC: ANHLAB 08:57
PROVIDERS: PCP Internal Medicine; Visit Provider Internal Medicine Nephrology
DX: E11.9 Type 2 diabetes mellitus without complications (principal); G62.9 Polyneuropathy, unspecified; E78.5 Hyperlipidemia, unspecified; I12.9 Hypertensive chronic kidney disease with stage 1 through stage 4 chronic kidney disease, or unspecified chronic kidney disease; N18.32 Chronic kidney disease, stage 3b; I25.10 Atherosclerotic heart disease of native coronary artery without angina pectoris; N40.0 Benign prostatic hyperplasia without lower urinary tract symptoms; G89.29 Other chronic pain
CPT/HCPCS: 36415; 80053; 80061; 81001; 82043; 82306; 83036; 83970; 84100; 85025

== ENCOUNTER 2023-02-22 09:37 | Outpatient (CLI) | payer MEDICARE, SELFPAY ==
--- NOTE | ~2023-02-22 | MR_ITS ---
MRI of the cervical spine Clinical History: Cervicalgia Technique: Axial T2-weighted and gradient images, and sagittal T1-weighted, T2-weighted, and STIR adore ges were acquired. Findings: There is straightening of the normal cervical lordosis. No fracture or subluxation seen. No suspicious bone marrow signal abnormality seen. At C2-C3, there is tiny disc bulge. No spinal canal stenosis, cord compression, or neural foraminal n arrowing. At C3-C4, is minimal disc bulge. No spinal canal stenosis, cord compression, or neural foraminal narr owing. At C4-C5, there is mild disc osteophyte complex. No spinal canal stenosis or cord compression. No def inite neural foraminal narrowing. At C5-C6, there is minimal disc osteophyte complex. No spinal canal stenosis, cord compression, or ne ural foraminal narrowing. At C6-C7, there is tiny disc bulge. No spinal canal stenosis, cord compression, or neural foraminal n arrowing. No abnormal signal seen in the spinal cord. Paravertebral soft tissues are unremarkable. Impression: Minimal degenerative change, as above. Reviewed, dictated and finalized at location . [employer] TE[employer] Impression: Minimal degenerative change, as above.
--- NOTE | ~2023-02-22 | MR_ITS ---
MRI of the thoracic spine Clinical History: Back pain Technique: Axial T2-weighted and gradient images, and sagittal T1-weighted, T2-weighted, and STIR adore ges were acquired. Findings: There is no fracture or subluxation of the thoracic spine. There is mild kyphosis. No suspi cious bone marrow signal abnormality identified. No significant disc bulge or herniation seen at any thoracic level. No spinal canal stenosis or cord compression identified. No epidural mass or collection identified. Paravertebral soft tissues are unremarkable. Impression: No significant abnormality seen. Reviewed, dictated and finalized at location M. D LIFE ASSISTANT Impression: No significant abnormality seen.
== END 2023-02-22 09:38 | disposition home or self-care (01) ==
PROVIDERS: PCP Internal Medicine; Visit Provider Internal Medicine
DX: M54.6 Pain in thoracic spine (principal); M54.2 Cervicalgia
CPT/HCPCS: 72141; 72146

== ENCOUNTER 2023-03-11 13:40 | Emergency (ER) | payer MEDICARE, SELFPAY ==
--- NOTE | ~2023-03-11 | XR_ITS ---
EXAM: XR foot LT min 3V DATE: 03/11/2023 14:23 HISTORY: rule out foreign body . COMPARISON: 10/23/2017. FINDINGS: Normal mineralization. No fracture or dislocation. No lytic or blastic lesion. Mild scatte red degenerative changes.. No erosion or periosteal change. 11 mm linear, mixed density possible fore ign body projecting in the plantar soft tissues, with a larger radiolucent portion and a 3 mm area of hyperdensity over the deepest visualized portion, located roughly at the level of the first metatars al midshaft and only seen in the lateral view making more precise localization difficult. IMPRESSION: 11 mm linear mixed density focus in the plantar soft tissues, possible foreign body. Reviewed, dictated and finalized at location K. IOLOGY NURSE IMPRESSION: 11 mm linear mixed density focus in the plantar soft tissues, possi ble foreign body.
[2023-03-11 13:43] VITALS: BP 143/74; PULSE 79; RESP 18; TEMP 36.2; O2SAT 99
--- NOTE | 2023-03-11 14:24 | ED.GENADULT ---
HPI - General Adult General Chief complaint: Wound/Laceration Stated complaint: splinter in foot Time Seen by Provider: 03/11/23 13:47 Source: patient Mode of arrival: ambulatory Limitations: no limitations History of Present Illness HPI narrative: this is a 72-year-old male who presents to the ED with chief complaint of a possible splinter to the left plantar forefoot. Reports that he slipped on a patch of ice the other day while helping someone up and noticed continuing foot pain for the past couple days. He says it feels like a splint was unable to visualize any foreign body. He also was wearing shoes at the time of injury so he is not sure how this happened. he has history of diabetes that is well controlled. denies fevers, chills, foot redness or swelling. Denies any further sites of pain or injury. Related Data Home Medications Medication Instructions Recorded Confirmed amlodipine 2.5 mg tablet 2.5 mg PO DAILY 09/03/19 12/27/21 aspirin 81 mg tablet,delayed 81 mg PO DAILY 09/03/19 12/27/21 release (Talon Low Dose Aspirin) atorvastatin 10 mg tablet (Lipitor) 10 mg PO DAILY 09/03/19 12/27/21 cholecalciferol (vitamin D3) 50 50 mcg PO DAILY 09/03/19 12/27/21 mcg (2,000 unit) capsule (Vitamin D3) finasteride 5 mg tablet 5 mg PO DAILY 09/03/19 12/27/21 gemfibrozil 600 mg tablet 600 mg PO BID 09/03/19 12/27/21 glimepiride 4 mg tablet 4 mg PO DAILY 09/03/19 12/27/21 hydrochlorothiazide 12.5 mg tablet 12.5 mg PO DAILY 09/03/19 12/27/21 kzpdnlxh-fc-tnpln 300 mcg-K 60 1 tablet PO DAILY 09/03/19 12/27/21 mcg-lycop 600 mcg-lutein 300 mcg tablet (Centrum Silver Men) omega 2-ayb-crz-fish oil 1,000 mg 1 cap PO DAILY 09/03/19 12/27/21 (120 mg-180 mg) capsule (Fish Oil) tamsulosin 0.4 mg capsule 0.4 mg PO DAILY 09/03/19 12/27/21 apple cider vinegar 600 mg capsule 900 mg PO QAM 09/20/21 12/27/21 calcium polycarbophil 625 mg 1,250 mg PO DAILY 09/20/21 12/27/21 tablet (FiberCon) acetaminophen 500 mg tablet 500 mg PO Q6H PRN Pain 11/17/21 12/27/21 lisinopril 2.5 mg tablet 2.5 mg PO QAM 11/17/21 12/27/21 Allergies Allergy/AdvReac Type Severity Reaction Status Date / Time No Known Allergies Allergy Verified 03/11/23 14:00 Review of Systems Review of Systems: All systems as dictated in [facility] Past Medical History Medical History Abdominal distension (gaseous) Back pain HRNIATED DISC, NEUROMA- FIBROMA T10 BPH (benign prostatic hyperplasia) CKD (chronic kidney disease) stage 3, GFR 30-59 ml/min Diabetes HTN (hypertension) Hx of myocardial infarction Hypercholesterolemia Obesity Surgical History Surgical History History of back surgery tumor removal from spine, [place], [place] S/P excision of lipoma RLQ lipoma excised on 11/25/21 Family History Family History Father Diabetes mellitus Pancreatic cancer Mother Multiple sclerosis Grandparent Pancreatic cancer Social History Social History Smoking status: Never smoker Alcohol intake: never Substance use: never Living arrangements: alone Occupation/Education: retired 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 HEAD: Normocephalic, atraumatic. EYES: PERRLA and EOMI. ENT: Nares clear, no rhinorrhea or epistaxis. Mucous membranes moist. Oropharynx without tonsillar hypertrophy exudate or other lesions. NECK: Supple. No adenopathy or masses. CHEST: No respiratory distress. Clear to auscultation. No wheezes rales or rhonchi HEART: Regular rate and rhythm. No murmur heard. Normal peripheral pulses. ABDOMEN: Soft, nontender, nondistended, normal active bowel sound
== END 2023-03-11 15:20 | disposition home or self-care (01) ==
PROVIDERS: Emergency Provider Physician Assistant; PCP Internal Medicine
DX: S91.322A Laceration with foreign body, left foot, initial encounter (principal); S90.852A Superficial foreign body, left foot, initial encounter; I12.9 Hypertensive chronic kidney disease with stage 1 through stage 4 chronic kidney disease, or unspecified chronic kidney disease; E11.22 Type 2 diabetes mellitus with diabetic chronic kidney disease; N18.30 Chronic kidney disease, stage 3 unspecified; N40.0 Benign prostatic hyperplasia without lower urinary tract symptoms; I25.2 Old myocardial infarction; E78.00 Pure hypercholesterolemia, unspecified; E66.9 Obesity, unspecified; Z68.28 Body mass index [BMI] 28.0-28.9, adult; Z79.84 Long term (current) use of oral hypoglycemic drugs; Z79.82 Long term (current) use of aspirin; W45.8XXA Other foreign body or object entering through skin, initial encounter
CPT/HCPCS: 73630; 99283

== ENCOUNTER 2023-03-14 15:50 | Outpatient (CLI) | payer MEDICARE, SELFPAY ==
[2023-03-14 16:54] LABS: Hemoglobin A1C 6.3 % (<5.7)
[2023-03-14 17:02] LABS: Alanine Aminotransferase 22 U/L (6-50); Albumin Level 4.9 g/dL (3.5-5.1); Alkaline Phosphatase 86 U/L (38-126); Anion Gap 8 mmol/L (8-16); Aspartate Amino Transferase 28 U/L (17-59); Bilirubin,Total 0.6 mg/dL (0.2-1.3); Blood Urea Nitrogen 23 mg/dL (9-20); Calcium 10.4 mg/dL (8.4-10.2); Carbon Dioxide 28 mmol/L (22-30); Chloride 105 mmol/L (98-107); Cholesterol 144 mg/dL (0-200); Estimated Glomerular Filt Rate 43; Glucose 99 mg/dL (65-110); HDL Direct 40 mg/dL; Phosphorus 2.9 mg/dL (2.5-4.5); Potassium 4.2 mmol/L (3.4-5.0); Sodium 141 mmol/L (137-145); Triglycerides 144 mg/dL (<150)
[2023-03-14 17:08] LABS: Appearance Urine Clear (Clear); Bilirubin Urine Negative (Negative); Blood Urine Negative (Negative); Color Urine Yellow (Yellow); Glucose Urine UA Negative (Negative); Ketones Urine Negative (Negative); Leukocyte Esterase Ur Negative LEU/UL (NEGATIVE); Nitrate Urine Negative (Negative); Protein Urine Negative (Negative); Specific Grav Ur 1.015 (1.001-1.035); Urobilinogen Urine 0.2 mg/dL (<2.0); pH Urine 5.5 (5.0-9.0)
[2023-03-14 17:10] LABS: Add Urine Microscopic? NO
[2023-03-14 17:12] LABS: Parathyroid Intact 89.6 pg/mL (7.5-53.5)
[2023-03-14 17:13] LABS: LDL Cholesterol Direct 81 mg/dL
[2023-03-14 17:18] LABS: Creatinine Urine 102.3 mg/dL; Total Protein Urine Random 6 mg/dL; Ur Ttl Prot Creatinine Ratio 0.06 mg/mg (0-0.20)
== END 2023-03-14 15:51 | disposition home or self-care (01) ==
LOC: ANHLAB 15:55
PROVIDERS: PCP Internal Medicine; Visit Provider Internal Medicine Nephrology
DX: I12.9 Hypertensive chronic kidney disease with stage 1 through stage 4 chronic kidney disease, or unspecified chronic kidney disease (principal); E11.9 Type 2 diabetes mellitus without complications; N18.32 Chronic kidney disease, stage 3b; E78.5 Hyperlipidemia, unspecified; I25.10 Atherosclerotic heart disease of native coronary artery without angina pectoris; G62.89 Other specified polyneuropathies; E87.5 Hyperkalemia
CPT/HCPCS: 36415; 80053; 80061; 81003; 82306; 82570; 83036; 83970; 84100; 84156

== ENCOUNTER 2023-05-25 08:03 | Outpatient (CLI) | payer MEDICARE, SELFPAY ==
--- NOTE | ~2023-05-25 | MR_ITS ---
MRI of the pelvis CLINICAL HISTORY: Pain TECHNIQUE: Coronal SSFSE ARC, WATER:coronal LAVA-FLEX, Coronal 2D FIESTA FatSat, Axial SSFSE BH ARC, Axial 3D DualEcho BH, Axial SSFSE-IR, Axial DWI b=500, Axial 2D FIESTA FatSat, pre and dynamic postco ntrast Axial LAVA ARC, postcontrast Coronal In and Opposed phase LAVA FLEX FINDINGS: Visualized bowel loops are unremarkable. No bowel obstruction identified. No inflammatory c hange or free fluid evident. No lymphadenopathy or mass lesion identified. No pelvic mass identified. Urinary bladder unremarkable. Visualized osseous structures are intact. Impression: No significant abnormality identified. Reviewed, dictated and finalized at location . Impression: No significant abnormality identified.
--- NOTE | ~2023-05-25 | MR_ITS ---
MRI of the abdomen: Clinical indication: Abdominal pain. Technique: Coronal SSFSE ARC, WATER:coronal LAVA-FLEX, Coronal 2D FIESTA FatSat, Axial SSFSE BH ARC, Axial 3D DualEcho BH, Axial SSFSE-IR, Axial DWI b=500, Axial 2D FIESTA FatSat, pre and dynamic postco ntrast Axial LAVA ARC, postcontrast Coronal In and Opposed phase LAVA FLEX Findings: Gallbladder is unremarkable. The common bile duct is normal in course and caliber. No filli ng defects are seen within the CBD. No evidence of intrahepatic biliary ductal dilatation. The pancre atic duct is normal in size. Liver, spleen, pancreas, adrenals, kidneys appear normal. The aorta and the paraaortic regions appear normal. Impression: No significant abnormality seen. Reviewed, dictated and finalized at [facility]. Impression: No significant abnormality seen.
== END 2023-05-25 08:04 | disposition home or self-care (01) ==
PROVIDERS: PCP Internal Medicine; Visit Provider Internal Medicine
DX: R10.9 Unspecified abdominal pain (principal)
CPT/HCPCS: 72195; 74181

== ENCOUNTER 2023-06-13 10:44 | Outpatient (CLI) | payer MEDICARE, SELFPAY ==
--- NOTE | ~2023-06-13 | US_ITS ---
EXAMINATION: US carotid duplex BI DATE: 06/13/2023 11:41 INDICATION: Dizziness TECHNIQUE: Grayscale, color Doppler, and pulsed Doppler images of the cervical carotid arteries were obtained. The degree of vessel stenosis is placed in one of the following categories: normal, <50%, 5 0-69%, >=70% but less than near-occlusion, near-occlusion, or total occlusion. Note that percent sten osis relative to normal distal artery lumen diameter is indirectly measured from velocity measurement s as described by Rob, et al. Radiology 2003; 229:340-346. Notes: Normal: Peak systolic velocity <125 centimeters/sec and no plaque <50%. Peak systolic velocity <125 ( EDV <40; ICA/CCA PSV ratio <2.0; used these factors only a tandem lesions or low cardiac output or co ntralateral disease) 50-69 %: PSV 125-230 (EDV 40-100; ratio 2-4) >= 70% but less than near occlusion: PSV greater than 230 (EDV > 100; ratio> 4.0) Near Occlusion: PSV that is variable; markedly narrowed lumen Occlusion: Absent flow on color/spectral Doppler and no lumen on carpio scale. COMPARISON: None. FINDINGS: RIGHT: The right common carotid artery (CCA) peak systolic velocity (PSV) is 122 cm/s. The right internal ca rotid artery (ICA) PSV is 70 cm/s. The right ICA end-diastolic velocity (EDV) is 15 cm/s. The right I CA/CCA PSV ratio is 0.6. The external carotid artery (ECA) PSV is 79 cm/s. There is antegrade flow in the right vertebral artery. LEFT: The left CCA PSV is 151 cm/s. The left ICA PSV is 50 cm/s. The left ICA EDV is 17 cm/s. The left ICA/ CCA PSV ratio is 0.3. The ECA PSV is 59 cm/s. There is antegrade flow in the left vertebral artery. Incidental note is made of a right thyroid mass measuring 1.6 x 1.5 x 1.4 cm which is solid, hyperech oic, wider than tall. IMPRESSION: 1. Less than 50% stenosis in the right internal carotid artery by sonographic criteria. 2. Less than 50% stenosis in the left internal carotid artery by sonographic criteria. 3: Right thyroid mass measuring 1.6 cm. Correlation with dedicated thyroid ultrasound recommended. Reviewed, dictated and finalized at location B. IMPRESSION: 1. Less than 50% stenosis in the right internal carotid artery by sonographic c riteria. 2. Less than 50% stenosis in the left internal carotid artery by sonographic cr iteria. 3: Right thyroid mass measuring 1.6 cm. Correlation with dedicated thyroid ult rasound recommended.
== END 2023-06-13 10:45 | disposition home or self-care (01) ==
LOC: ANHIMG 10:50
PROVIDERS: PCP Internal Medicine; Visit Provider Internal Medicine
DX: I65.23 Occlusion and stenosis of bilateral carotid arteries (principal)
CPT/HCPCS: 93880

== ENCOUNTER 2023-06-16 08:49 | Outpatient (CLI) | payer MEDICARE, SELFPAY ==
--- NOTE | 2023-06-16 | ECHO_ITS ---
Patient Info Name: Keyshawn Sanders Age: 72 years : 1950 Gender: Male Ht: 69 in Wt: 190 lbs BSA: 2.07 m2 HR: 56 bpm BP: 108 / 79 mmHg Technical Quality: Fair Exam Date: 06/16/2023 10:02 AM Exam Location: Echo Lab Patient Status: Outpatient Admit Date: 06/16/2023 Staff Ordering Physician: DanieBrando MD Computer Customer Support Specialist: Timmy La RDCS Attending Provider: KaroBrando MD Exam Type: CA echo doppler color flow Study Info Indications I10 - Essential (primary) hypertension Complete two-dimensional, color flow and Doppler transthoracic echocardiogram is performed. Summary 1. Complete two-dimensional, color flow and Doppler transthoracic echocardiogram is performed. 2. Left ventricular chamber dimension is normal. 3. Ventricular septum is sigmoid shaped. No resting LVOT obstruction. 4. Left ventricular systolic function is normal, estimated at 65-70%. 5. The left ventricular diastolic function is grade I diastolic dysfunction. 6. E/e' 10 is mildly elevated. 7. There is trace tricuspid valve regurgitation. 8. No pulmonary hypertension, estimated pulmonary arterial systolic pressure is 26 mmHg. 9. There is trace pulmonic regurgitation. Left Ventricle E/e' 10 is mildly elevated. Ventricular septum is sigmoid shaped. No resting LVOT obstruction. Left ventricular chamber dimension is normal. Left ventricular systolic function is normal, estimated at 65-70%. The left ventricular diastolic function is grade I diastolic dysfunction. Right Ventricle Right ventricular chamber dimension is normal. Right ventricular systolic function is normal. Left Atria Left atrial chamber dimension is normal. Right Atria Right atrial chamber dimension is normal. Aortic Valve The aortic valve is trileaflet. There is no aortic valve stenosis. There is no aortic valve regurgitation. Pulmonic Valve There is trace pulmonic regurgitation. Mitral Valve There is no mitral valve stenosis. There is no mitral valve regurgitation. Tricuspid Valve There is trace tricuspid valve regurgitation. No pulmonary hypertension, estimated pulmonary arterial systolic pressure is 26 mmHg. Pericardium/Pleural There is no pericardial effusion. Inferior Vena Cava Normal inferior vena cava with >50% collapse upon inspiration consistent with normal right atrial pressure, 5 mmHg. Aorta The aortic root size at the sinus of Valsalva is normal. Left Ventricular Outflow Tract Name Value Normal LVOT 2D LVOT Diameter 2.0 cm LVOT Doppler LVOT Peak Gradient 5 mmHg LVOT Mean Gradient 3 mmHg LVOT VTI 26 cm LVOT VTI/AV VTI Ratio 0.9 LVOT Stroke Volume 79 ml LVOT CO 3.6 l/min LVOT CI 1.8 l/min/m2 Pulmonic Valve Name Value Normal RVOT Doppler RVOT Peak Gradient
== END 2023-06-16 08:50 | disposition home or self-care (01) ==
PROVIDERS: PCP Internal Medicine; Visit Provider Internal Medicine
DX: R93.1 Abnormal findings on diagnostic imaging of heart and coronary circulation (principal); I10 Essential (primary) hypertension; I07.1 Rheumatic tricuspid insufficiency; I37.1 Nonrheumatic pulmonary valve insufficiency
CPT/HCPCS: 93306

== ENCOUNTER 2023-06-21 10:46 | Emergency (ER) | payer MEDICARE, SELFPAY ==
--- NOTE | ~2023-06-21 | XR_ITS ---
EXAMINATION: XR chest 2V DATE: 06/21/2023 12:11 INDICATION: Upper respiratory infection. TECHNIQUE: Frontal and lateral views of the chest were obtained. COMPARISON: None. FINDINGS: There is no pneumonia, pleural effusion, or pneumothorax. The heart size is normal. IMPRESSION: 1. No acute cardiopulmonary disease. Reviewed, dictated and finalized at location A.
--- NOTE | 2023-06-21 11:13 | ECG_ITS ---
SEE SCANNED COPY FOR CONFIRMED REPORT. MTDD
[2023-06-21 11:14] VITALS: BP 135/76; PULSE 76; RESP 14; TEMP 37.2; O2SAT 99
[2023-06-21 11:33] VITALS: O2SAT 98
[2023-06-21 11:35] LABS: Basophils Percent Auto 0.2 % (0.2-1.2); Eosinophils Absolute Auto 0.1 K/mm3 (0-0.3); Eosinophils Percent Auto 0.8 % (0-4.4); Immature Granulocyte Absolute 0.05 K/mm3 (0.00-0.031); Immature Granulocyte Percent A 0.5 % (0-0.5); Lymphocytes Absolute Auto 1.12 K/mm3 (0.9-3.2); Lymphocytes Percent Auto 11.5 % (18.3-44.2); Mean Corpuscular Hemoglobin 30.6 pg (26-34); Mean Corpuscular Volume 87.5 fl (80-100); Mean Platelet Volume 10.6 fl (7.4-10.4); Monocytes Absolute Auto 0.7 K/mm3 (0.1-0.6); Monocytes Percent Auto 6.9 % (2.6-8.5); Neutrophils Absolute Auto 7.8 K/mm3 (1.3-6.7); Neutrophils Percent Auto 80.1 % (45.5-73.1); Platelet Count Result 173 k/mm3 (150-375); Red Blood Count 4.57 M/mm3 (4.6-6.20); Red Cell Distribution Width 12.6 % (11.5-14.5); White Blood Count 9.8 K/mm3 (4.5-10.0)
--- NOTE | 2023-06-21 11:37 | ED.WEAKNESS ---
HPI - Weakness General Chief complaint: Weakness Stated complaint: URI Time Seen by Provider: 06/21/23 10:54 Source: patient Mode of arrival: ambulatory Limitations: no limitations History of Present Illness HPI Narrative: Patient is a 72-year-old male who presents to the ED with report of fatigue and URI symptoms. Patient reports over the last 3 days, he has had weakness, fatigue, cough, sore throat, congestion, body aches. He denies sick contacts. Denies known fever. Denies shortness breath or chest pain. Denies nausea, vomiting. He is vaccinated for COVID and influenza. He states he began feeling better last night, but wanted to be evaluated for COVID today. Related Data Home Medications Medication Instructions Recorded Confirmed amlodipine 2.5 mg tablet 2.5 mg PO DAILY 09/03/19 12/27/21 aspirin 81 mg tablet,delayed 81 mg PO DAILY 09/03/19 12/27/21 release (Talon Low Dose Aspirin) atorvastatin 10 mg tablet (Lipitor) 10 mg PO DAILY 09/03/19 12/27/21 cholecalciferol (vitamin D3) 50 50 mcg PO DAILY 09/03/19 12/27/21 mcg (2,000 unit) capsule (Vitamin D3) finasteride 5 mg tablet 5 mg PO DAILY 09/03/19 12/27/21 gemfibrozil 600 mg tablet 600 mg PO BID 09/03/19 12/27/21 glimepiride 4 mg tablet 4 mg PO DAILY 09/03/19 12/27/21 hydrochlorothiazide 12.5 mg tablet 12.5 mg PO DAILY 09/03/19 12/27/21 emuwifbj-vj-hnusv 300 mcg-K 60 1 tablet PO DAILY 09/03/19 12/27/21 mcg-lycop 600 mcg-lutein 300 mcg tablet (Centrum Silver Men) omega 3-jfj-wgh-fish oil 1,000 mg 1 cap PO DAILY 09/03/19 12/27/21 (120 mg-180 mg) capsule (Fish Oil) tamsulosin 0.4 mg capsule 0.4 mg PO DAILY 09/03/19 12/27/21 apple cider vinegar 600 mg capsule 900 mg PO QAM 09/20/21 12/27/21 calcium polycarbophil 625 mg 1,250 mg PO DAILY 09/20/21 12/27/21 tablet (FiberCon) acetaminophen 500 mg tablet 500 mg PO Q6H PRN Pain 11/17/21 12/27/21 lisinopril 2.5 mg tablet 2.5 mg PO QAM 11/17/21 12/27/21 Allergies Allergy/AdvReac Type Severity Reaction Status Date / Time No Known Allergies Allergy Verified 03/11/23 14:00 Review of Systems Review of Systems: CONSTITUTIONAL: Denies fever, chills, or sweats. ENT: See HPI. CARDIOVASCULAR: Denies chest pain. RESPIRATORY: See HPI. GASTROINTESTINAL: Denies abdominal pain, nausea, vomiting. MUSCULOSKELETAL: Reports myalgia. All systems reviewed & are unremarkable except as noted in HPI and below PMFSH Past Medical History Medical History Abdominal distension (gaseous) Back pain HRNIATED DISC, NEUROMA- FIBROMA T10 BPH (benign prostatic hyperplasia) CKD (chronic kidney disease) stage 3, GFR 30-59 ml/min Diabetes HTN (hypertension) Hx of myocardial infarction Hypercholesterolemia Obesity Surgical History Surgical History History of back surgery tumor removal from spine, [place], [place] S/P excision of lipoma RLQ lipoma excised on 11/25/21 Family History Family History Father Diabetes mellitus Pancreatic cancer Mother Multiple sclerosis Grandparent Pancreatic cancer Social History Social History Smoking status: Never smoker Alcohol intake: never Substance use: never Living arrangements: alone Occupation/Education: retired 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 HEAD: Normocephalic, atraumatic. RESPIRATORY: Airway patent, respirations nonlabored. Clear to auscultation bilaterally, no rales, rhonchi, wheezing. No focal lung sounds. CARDIOVASCULAR: Regular rate and rhythm without murmurs, rubs, or gallops. MUSCULOSKELETAL: Moves all extremities. No gross deformities. SKIN:
[2023-06-21 11:52] LABS: Alanine Aminotransferase 12 U/L (6-50); Albumin Level 4.8 g/dL (3.5-5.1); Alkaline Phosphatase 96 U/L (38-126); Anion Gap 9 mmol/L (4-12); Aspartate Amino Transferase 19 U/L (17-59); Bilirubin,Total 1.1 mg/dL (0.2-1.3); Blood Urea Nitrogen 26 mg/dL (9-20); Calcium 10.4 mg/dL (8.4-10.2); Carbon Dioxide 22 mmol/L (22-30); Chloride 106 mmol/L (98-107); Estimated CRCL calculation 39 ml/min; Estimated Glomerular Filt Rate 43; Glucose 177 mg/dL (65-110); Potassium 4.2 mmol/L (3.4-5.0); Sodium 137 mmol/L (137-145)
[2023-06-21 12:10] LABS: Influenza A QL RT-PCR Negative (Negative); Influenza B QL RT-PCR Negative (Negative); RSV RNA, RT-PCR Negative (Negative); SARS-CoV-2 RNA PCR Positive (Negative)
[2023-06-21 13:16] VITALS: BP 124/64; PULSE 75; RESP 18; TEMP 37.2; O2SAT 100
== END 2023-06-21 13:18 | disposition home or self-care (01) ==
PROVIDERS: Emergency Provider Physician Assistant; PCP Internal Medicine
DX: U07.1 COVID-19 (principal); E11.22 Type 2 diabetes mellitus with diabetic chronic kidney disease; I12.9 Hypertensive chronic kidney disease with stage 1 through stage 4 chronic kidney disease, or unspecified chronic kidney disease; I25.2 Old myocardial infarction; E78.00 Pure hypercholesterolemia, unspecified; E66.9 Obesity, unspecified; Z68.27 Body mass index [BMI] 27.0-27.9, adult; N18.30 Chronic kidney disease, stage 3 unspecified; N40.0 Benign prostatic hyperplasia without lower urinary tract symptoms; Z79.82 Long term (current) use of aspirin; Z79.84 Long term (current) use of oral hypoglycemic drugs; R94.31 Abnormal electrocardiogram [ECG] [EKG]
CPT/HCPCS: 36415; 71046; 80053; 85025; 87637; 93005; 99283

== ENCOUNTER 2023-07-05 08:45 | Outpatient (CLI) | payer MEDICARE, SELFPAY ==
--- NOTE | ~2023-07-05 | US_ITS ---
EXAMINATION: US thyroid DATE: 07/05/2023 10:05 INDICATION: Thyroid nodule. TECHNIQUE: Multiple ultrasound images of the thyroid were obtained. COMPARISON: None. FINDINGS: The right thyroid lobe measures 3.9 x 2.1 x 1.5 cm. The left thyroid lobe measures 3.3 x 2.0 x 1.9 c m. In the in the left thyroid lobe, there is a 6 mm cyst (TI-RADS TR1). In the right thyroid lobe, t here is a 17 mm solid, isoechoic, taller than wide nodule with ill-defined margin without echogenic f oci (TR4). IMPRESSION: 1. Thyroid nodules. Ultrasound-guided fine-needle aspiration of the 17 mm right thyroid nodule is rec ommended. Reviewed, dictated and finalized at location E. IMPRESSION: 1. Thyroid nodules. Ultrasound-guided fine-needle aspiration of the 17 mm right thyroid nodule is recommended.
== END 2023-07-05 08:46 | disposition home or self-care (01) ==
PROVIDERS: PCP Internal Medicine; Visit Provider Internal Medicine
DX: E04.2 Nontoxic multinodular goiter (principal)
CPT/HCPCS: 76536

== ENCOUNTER 2023-07-07 07:42 | Outpatient (CLI) | payer MEDICARE, SELFPAY ==
[2023-07-07 08:34] LABS: Basophils Percent Auto 0.6 % (0.2-1.2); Eosinophils Absolute Auto 0.1 K/mm3 (0-0.3); Eosinophils Percent Auto 1.7 % (0-4.4); Hematocrit 42.9 % (42.0-52.0); Hemoglobin 14.9 g/dL (14.0-18.0); Immature Granulocyte Absolute 0.03 K/mm3 (0.00-0.031); Immature Granulocyte Percent A 0.5 % (0-0.5); Lymphocytes Absolute Auto 1.95 K/mm3 (0.9-3.2); Lymphocytes Percent Auto 29.4 % (18.3-44.2); Mean Corpuscular HGB Conc 34.7 g/dl (32-36); Mean Corpuscular Hemoglobin 30.8 pg (26-34); Mean Corpuscular Volume 88.8 fl (80-100); Mean Platelet Volume 10.7 fl (7.4-10.4); Monocytes Absolute Auto 0.5 K/mm3 (0.1-0.6); Neutrophils Percent Auto 59.8 % (45.5-73.1); Platelet Count Result 235 k/mm3 (150-375); Red Blood Count 4.83 M/mm3 (4.6-6.20); Red Cell Distribution Width 13.2 % (11.5-14.5); White Blood Count 6.6 K/mm3 (4.5-10.0)
[2023-07-07 08:35] LABS: Add Urine Microscopic? NO; Appearance Urine Clear (Clear); Bilirubin Urine Negative (Negative); Blood Urine Negative (Negative); Color Urine Yellow (Yellow); Glucose Urine UA Trace mg/dL (Negative); Ketones Urine Negative (Negative); Leukocyte Esterase Ur Negative LEU/UL (Negative); Nitrate Urine Negative (Negative); Protein Urine Negative (Negative); Specific Grav Ur 1.016 (1.001-1.035); Urobilinogen Urine 0.2 mg/dL (<2.0); pH Urine 5.5 (5.0-9.0)
[2023-07-07 08:43] LABS: Alanine Aminotransferase 19 U/L (6-50); Albumin Level 4.9 g/dL (3.5-5.1); Alkaline Phosphatase 137 U/L (38-126); Anion Gap 8 mmol/L (4-12); Aspartate Amino Transferase 25 U/L (17-59); Bilirubin,Total 0.5 mg/dL (0.2-1.3); Blood Urea Nitrogen 24 mg/dL (9-20); Calcium 9.7 mg/dL (8.4-10.2); Carbon Dioxide 24 mmol/L (22-30); Chloride 107 mmol/L (98-107); Cholesterol 156 mg/dL (0-200); Estimated Glomerular Filt Rate 43; Glucose 169 mg/dL (65-110); HDL Direct 34 mg/dL; Phosphorus 2.8 mg/dL (2.5-4.5); Potassium 4.9 mmol/L (3.4-5.0); Sodium 139 mmol/L (137-145); Triglycerides 295 mg/dL (<150)
[2023-07-07 08:45] LABS: Creatinine Urine 102.1 mg/dL; Total Protein Urine Random 8 mg/dL; Ur Ttl Prot Creatinine Ratio 0.08 mg/mg (0-0.20)
[2023-07-07 08:54] LABS: LDL Cholesterol Direct 90 mg/dL
[2023-07-07 08:56] LABS: Parathyroid Intact 110.3 pg/mL (7.5-53.5)
[2023-07-07 09:34] LABS: Vitamin D 25 Hydroxy 57.8 ng/mL
[2023-07-07 09:54] LABS: Hemoglobin A1C 6.6 % (<5.7)
== END 2023-07-07 07:43 | disposition home or self-care (01) ==
PROVIDERS: PCP Internal Medicine; Referring Provider Internal Medicine; Visit Provider Internal Medicine Nephrology
DX: E78.5 Hyperlipidemia, unspecified (principal); N40.0 Benign prostatic hyperplasia without lower urinary tract symptoms; E87.5 Hyperkalemia; I25.10 Atherosclerotic heart disease of native coronary artery without angina pectoris; G62.9 Polyneuropathy, unspecified; E11.9 Type 2 diabetes mellitus without complications; N18.32 Chronic kidney disease, stage 3b
CPT/HCPCS: 36415; 80053; 80061; 81003; 82306; 82570; 83036; 83970; 84100; 84156; 85025

== ENCOUNTER 2023-08-10 12:19 | Outpatient (CLI) | payer MEDICARE, SELFPAY ==
--- NOTE | ~2023-08-10 | US_ITS ---
EXAMINATION: US FNA w image guidance DATE: 08/10/2023 13:39 INDICATION: Right thyroid nodule. TECHNIQUE: The procedure and its benefits and risks were discussed with the patient. Risks specifically discusse d included bleeding. The patient verbalized understanding of the risks and agreed to proceed. The nec k was prepped and draped in the usual sterile manner. 1% lidocaine was used for local anesthesia. 7 passes were made with a 25G needle into the lesion under ultrasound guidance. There were no immedia te complications. FINDINGS: Grayscale ultrasound images demonstrate needles advanced into a 17 mm right thyroid nodule for biopsy . IMPRESSION: 1. Ultrasound-guided fine needle aspiration of a right thyroid nodule. Reviewed, dictated and finalized at location A.
== END 2023-08-10 12:20 | disposition home or self-care (01) ==
PROVIDERS: PCP Internal Medicine; Visit Provider Internal Medicine
DX: E04.1 Nontoxic single thyroid nodule (principal)
CPT/HCPCS: 10005; 88172; 88173; 88305

== ENCOUNTER 2023-09-12 11:43 | Outpatient (CLI) | payer MEDICARE, SELFPAY ==
[2023-09-12 12:23] LABS: Basophils Percent Auto 0.4 % (0.2-1.2); Eosinophils Absolute Auto 0.1 K/mm3 (0-0.3); Eosinophils Percent Auto 1.6 % (0-4.4); Hematocrit 39.5 % (42.0-52.0); Hemoglobin 13.8 g/dL (14.0-18.0); Immature Granulocyte Absolute 0.02 K/mm3 (0.00-0.031); Immature Granulocyte Percent A 0.3 % (0-0.5); Lymphocytes Absolute Auto 2.55 K/mm3 (0.9-3.2); Lymphocytes Percent Auto 33.6 % (18.3-44.2); Mean Corpuscular HGB Conc 34.9 g/dl (32-36); Mean Corpuscular Hemoglobin 30.5 pg (26-34); Mean Corpuscular Volume 87.2 fl (80-100); Monocytes Absolute Auto 0.6 K/mm3 (0.1-0.6); Monocytes Percent Auto 7.2 % (2.6-8.5); Neutrophils Absolute Auto 4.3 K/mm3 (1.3-6.7); Neutrophils Percent Auto 56.9 % (45.5-73.1); Platelet Count Result 222 k/mm3 (150-375); Red Blood Count 4.53 M/mm3 (4.6-6.20); Red Cell Distribution Width 12.6 % (11.5-14.5); White Blood Count 7.6 K/mm3 (4.5-10.0)
[2023-09-12 12:37] LABS: Alanine Aminotransferase 13 U/L (6-50); Albumin Level 4.7 g/dL (3.5-5.1); Alkaline Phosphatase 144 U/L (38-126); Anion Gap 12 mmol/L (4-12); Aspartate Amino Transferase 19 U/L (17-59); Bilirubin,Total 0.5 mg/dL (0.2-1.3); Blood Urea Nitrogen 29 mg/dL (9-20); Carbon Dioxide 21 mmol/L (22-30); Chloride 104 mmol/L (98-107); Cholesterol 138 mg/dL (0-200); Estimated Glomerular Filt Rate 43; Glucose 97 mg/dL (65-110); HDL Direct 31 mg/dL; Phosphorus 2.8 mg/dL (2.5-4.5); Potassium 4.4 mmol/L (3.4-5.0); Sodium 137 mmol/L (137-145); Triglycerides 203 mg/dL (<150)
[2023-09-12 12:46] LABS: Hemoglobin A1C 6.8 % (<5.7)
[2023-09-12 12:48] LABS: LDL Cholesterol Direct 83 mg/dL
[2023-09-12 12:52] LABS: Parathyroid Intact 107.9 pg/mL (7.5-53.5)
[2023-09-12 13:04] LABS: Creatinine Urine 117.5 mg/dL
[2023-09-12 13:04] LABS: Vitamin D 25 Hydroxy 55.3 ng/mL
[2023-09-12 13:09] LABS: MALB Creatinine Ratio 8.3 mg/g (0-30); Microalbumin Urine Random 9.7 mg/L (0-16.7)
[2023-09-13 10:56] LABS: Appearance Urine Clear (Clear); Bilirubin Urine Negative (Negative); Blood Urine Negative (Negative); Color Urine Yellow (Yellow); Glucose Urine UA Negative (Negative); Ketones Urine Negative (Negative); Leukocyte Esterase Ur Negative LEU/UL (Negative); Nitrate Urine Negative (Negative); Protein Urine Negative (Negative); Specific Grav Ur 1.016 (1.001-1.035); Urobilinogen Urine 0.2 mg/dL (<2.0); pH Urine 5.5 (5.0-9.0)
[2023-09-13 11:01] LABS: Add Urine Microscopic? NO
== END 2023-09-12 11:44 | disposition home or self-care (01) ==
PROVIDERS: PCP Internal Medicine; Referring Provider Internal Medicine; Visit Provider Internal Medicine Nephrology
DX: E87.5 Hyperkalemia (principal); E78.5 Hyperlipidemia, unspecified; N18.32 Chronic kidney disease, stage 3b; E11.9 Type 2 diabetes mellitus without complications; N39.0 Urinary tract infection, site not specified; R79.9 Abnormal finding of blood chemistry, unspecified; G62.9 Polyneuropathy, unspecified
CPT/HCPCS: 36415; 80053; 80061; 81003; 82043; 82306; 83036; 83970; 84100; 85025

== ENCOUNTER 2023-11-14 10:53 | Outpatient (CLI) | payer MEDICARE, SELFPAY ==
[2023-11-14 11:51] LABS: Basophils Percent Auto 0.3 % (0.2-1.2); Eosinophils Absolute Auto 0.1 K/mm3 (0-0.3); Hemoglobin 14.7 g/dL (14.0-18.0); Immature Granulocyte Absolute 0.02 K/mm3 (0.00-0.031); Immature Granulocyte Percent A 0.3 % (0-0.5); Lymphocytes Absolute Auto 1.59 K/mm3 (0.9-3.2); Lymphocytes Percent Auto 23.2 % (18.3-44.2); Mean Corpuscular Hemoglobin 31.1 pg (26-34); Mean Corpuscular Volume 88.8 fl (80-100); Mean Platelet Volume 10.4 fl (7.4-10.4); Monocytes Absolute Auto 0.4 K/mm3 (0.1-0.6); Monocytes Percent Auto 6.3 % (2.6-8.5); Neutrophils Absolute Auto 4.7 K/mm3 (1.3-6.7); Neutrophils Percent Auto 68.9 % (45.5-73.1); Platelet Count Result 233 k/mm3 (150-375); Red Blood Count 4.73 M/mm3 (4.6-6.20); Red Cell Distribution Width 12.8 % (11.5-14.5); White Blood Count 6.8 K/mm3 (4.5-10.0)
[2023-11-14 11:57] LABS: Add Urine Microscopic? NO; Appearance Urine Clear (Clear); Bilirubin Urine Negative (Negative); Blood Urine Negative (Negative); Color Urine Yellow (Yellow); Glucose Urine UA Negative (Negative); Ketones Urine Negative (Negative); Leukocyte Esterase Ur Negative LEU/UL (Negative); Nitrate Urine Negative (Negative); Protein Urine Negative (Negative); Specific Grav Ur 1.014 (1.001-1.035)
[2023-11-14 12:05] LABS: Alanine Aminotransferase 13 U/L (6-50); Albumin Level 4.8 g/dL (3.5-5.1); Alkaline Phosphatase 102 U/L (38-126); Anion Gap 12 mmol/L (4-12); Aspartate Amino Transferase 23 U/L (17-59); Bilirubin,Total 0.9 mg/dL (0.2-1.3); Blood Urea Nitrogen 28 mg/dL (9-20); Calcium 10.3 mg/dL (8.4-10.2); Carbon Dioxide 26 mmol/L (22-30); Chloride 100 mmol/L (98-107); Cholesterol 132 mg/dL (0-200); Estimated Glomerular Filt Rate 43; Glucose 112 mg/dL (65-110); HDL Direct 32 mg/dL; Phosphorus 2.8 mg/dL (2.5-4.5); Potassium 5.1 mmol/L (3.4-5.0); Sodium 138 mmol/L (137-145); Triglycerides 267 mg/dL (<150)
[2023-11-14 12:13] LABS: Parathyroid Intact 77.5 pg/mL (14.5-75.2)
[2023-11-14 12:16] LABS: LDL Cholesterol Direct 64 mg/dL
[2023-11-14 12:17] LABS: Creatinine Urine 88.3 mg/dL; Total Protein Urine Random 10 mg/dL; Ur Ttl Prot Creatinine Ratio 0.11 mg/mg (0-0.20)
[2023-11-14 12:29] LABS: Hemoglobin A1C 6.5 % (<5.7)
[2023-11-14 12:33] LABS: Vitamin D 25 Hydroxy 56.2 ng/mL
== END 2023-11-14 10:54 | disposition home or self-care (01) ==
PROVIDERS: PCP Internal Medicine; Visit Provider Internal Medicine Nephrology
DX: E87.5 Hyperkalemia (principal); N18.32 Chronic kidney disease, stage 3b; E78.5 Hyperlipidemia, unspecified; E11.9 Type 2 diabetes mellitus without complications; N39.0 Urinary tract infection, site not specified; G62.9 Polyneuropathy, unspecified
CPT/HCPCS: 36415; 80053; 80061; 81003; 82306; 82570; 83036; 83970; 84100; 84156; 85025

== ENCOUNTER 2024-05-14 11:11 | Outpatient (CLI) | payer MEDICARE, SELFPAY ==
[2024-05-14 12:07] LABS: Basophils Percent Auto 0.7 % (0.2-1.2); Eosinophils Absolute Auto 0.1 K/mm3 (0-0.3); Eosinophils Percent Auto 2.1 % (0-4.4); Hematocrit 43.3 % (42.0-52.0); Hemoglobin 15.5 g/dL (14.0-18.0); Immature Granulocyte Absolute 0.02 K/mm3 (0.00-0.031); Immature Granulocyte Percent A 0.3 % (0-0.5); Lymphocytes Absolute Auto 1.88 K/mm3 (0.9-3.2); Lymphocytes Percent Auto 30.6 % (18.3-44.2); Mean Corpuscular HGB Conc 35.8 g/dl (32-36); Mean Corpuscular Hemoglobin 31.3 pg (26-34); Mean Corpuscular Volume 87.5 fl (80-100); Mean Platelet Volume 10.2 fl (7.4-10.4); Monocytes Absolute Auto 0.5 K/mm3 (0.1-0.6); Monocytes Percent Auto 7.7 % (2.6-8.5); Neutrophils Absolute Auto 3.6 K/mm3 (1.3-6.7); Neutrophils Percent Auto 58.6 % (45.5-73.1); Platelet Count Result 199 k/mm3 (150-375); Red Blood Count 4.95 M/mm3 (4.6-6.20); Red Cell Distribution Width 12.8 % (11.5-14.5); White Blood Count 6.1 K/mm3 (4.5-10.0)
[2024-05-14 12:08] LABS: Add Urine Microscopic? NO; Appearance Urine Clear (Clear); Bilirubin Urine Negative (Negative); Blood Urine Negative (Negative); Color Urine Yellow (Yellow); Glucose Urine UA Negative (Negative); Ketones Urine Negative (Negative); Leukocyte Esterase Ur Negative LEU/UL (Negative); Nitrate Urine Negative (Negative); Protein Urine Negative (Negative); Specific Grav Ur 1.014 (1.001-1.035); Urobilinogen Urine 0.2 mg/dL (<2.0)
[2024-05-14 12:20] LABS: Alanine Aminotransferase 17 U/L (6-50); Albumin Level 5.1 g/dL (3.5-5.1); Alkaline Phosphatase 86 U/L (38-126); Anion Gap 11 mmol/L (4-12); Aspartate Amino Transferase 25 U/L (17-59); Blood Urea Nitrogen 24 mg/dL (9-20); Calcium 10.3 mg/dL (8.4-10.2); Carbon Dioxide 25 mmol/L (22-30); Chloride 103 mmol/L (98-107); Cholesterol 163 mg/dL (0-200); Estimated Glomerular Filt Rate 42; Glucose 104 mg/dL (65-110); HDL Direct 36 mg/dL; Phosphorus 3.1 mg/dL (2.5-4.5); Potassium 4.7 mmol/L (3.4-5.0); Sodium 139 mmol/L (137-145); Triglycerides 181 mg/dL (<150)
[2024-05-14 12:22] LABS: Creatinine Urine 82.4 mg/dL; Total Protein Urine Random 8 mg/dL
[2024-05-14 12:30] LABS: Parathyroid Intact 83.2 pg/mL (14.5-75.2)
[2024-05-14 12:31] LABS: LDL Cholesterol Direct 76 mg/dL
[2024-05-14 12:54] LABS: Vitamin D 25 Hydroxy 53.9 ng/mL
--- OUTSIDE RECORDS SUMMARY | 2024-05-14 13:30 | XMS_ITS | Clinical Summary ---
Author Organization [facility] [employer] [facility] , [facility] Address [address] [place] [address] Phone Care Team Providers Care Supervisor [employer]ting [employer] Sewing Room Name Role Phone Torsten Pro MD Primary Care Provider [phone] Allergies No known active allergies Medications Apple Cider Vinegar 600 MG capsule Take 1 capsule by mouth 1 (one) time each day Active Cholecalciferol 50 MCG (1999 UT) capsule Take 1 capsule by mouth per week Active [place]-3 Fatty Acids (Fish Oil) 1000 MG capsule delayed-release Take 1,000 mg by mouth 1 (one) time each day Active Multiple Vitamins-Mineral s (CENTRUM ADULTS PO) Take by mouth 1 (one) time each day Active aspirin (ST SNEHA) 81 MG EC tablet Take 81 mg by mouth 1 (one) time each day Active polycarbophil (FIBERCON) 625 MG tablet Take 1,250 mg by mouth 1 (one) time each day Active gemfibrozil (LOPID) 600 MG tablet TAKE 1 TABLET (600 MG) BY MOUTH IN THE MORNING AND IN THE EVENING 180 tablet 10/24/19 24 Active tamsulosin (FLOMAX) 0.4 MG 24 hr capsule TAKE 1 CAPSULE BY MOUTH 1 TIME EACH DAY. 90 capsule 10/24/19 24 Active finasteride (PROSCAR) 5 MG tablet TAKE 1 TABLET BY MOUTH EVERY DAY 90 tablet 01/15/20 24 Active glimepiride (AMARYL) 4 MG tabletIndication s:Encounter for issue of repeat prescription TAKE 1 TABLET BY MOUTH EVERY DAY 90 tablet 01/22/20 24 Active hydroCHLOROthiaz zachary 12.5 MG tablet TAKE 1 TABLET BY MOUTH EVERY DAY 90 tablet 1 01/22/20 24 Active atorvastatin (LIPITOR) 10 MG tablet TAKE 1 TABLET BY MOUTH EVERY DAY IN THE EVENING 90 tablet 04/23/19 25 Active lisinopril 2.5 MG tablet TAKE 1 TABLET BY MOUTH EVERY DAY 90 tablet 04/23/19 25 Active lisinopril 2.5 MG tablet TAKE 1 TABLET BY MOUTH EVERY DAY 90 tablet 01/22/20 24 025 Discontinued atorvastatin (LIPITOR) 10 MG tablet TAKE 1 TABLET BY MOUTH EVERY DAY IN THE EVENING 90 tablet 01/22/20 24 025 Discontinued Active Problems Problem Noted Date Diagnosed Date Chronic pain 07/19/2022 Chronic hyperkalemia 08/03/2020 Stage 3b chronic kidney disease 08/03/2020 Coronary arteriosclerosis 08/03/2020 Dyslipidemia 08/03/2020 Benign prostatic hyperplasia 03/27/2019 Essential hypertension 03/27/2019 Hyperlipidemia 03/27/2019 Intervertebral disc prolapse 03/27/2019 Neuropathy 03/27/2019 Type 2 diabetes mellitus without complication Encounters Date Type Department Care Team Description 05/14/2024 Office Communication [facility], [address] [phone] Chester Cordoba MD 04/20/2024 Refill [facility], [address] [place] [address] Kellen Mccullough MD from Last 3 Months Immunizations Name Administration Dates Next Due Influenza TIV (IM) 11/12/2019,11/26/2018, 018 Influenza, Quadrivalent, With Preservative 11/16 Influenza, Unspecified 11/14/2016 Moderna SARS-COV-2 05/01/2020,04/03/2020 Pneumococcal Conjugate 13-Valent 12/12/2018 Pneumococcal Polysaccharide 11/20/2014 Family History Medical History Relation Comments Cancer Father Diabetes Father Heart disease Father Hypertension Father Kidney disease Father Dementia Mother Hypertension Mother Relation Status Comments Father Mother Alive Social History Tobacco Use Types Packs/Day Years Used Date Smoking Tobacco: Never Smokeless Tobacco: Never Tobacco Cessation:Counseling Given: Not Answered Alcohol Use Standard Drinks/Week Comments No 0 (1 standard drink = 0.6 oz pur e alcohol) Sex and Gender Information Value Date Recorded Sex Assigned at Not on file Legal Sex Male 2:49 PM EDT Gender Identity Not on file Sexual Orientation Not on file Last Filed Vital Signs Vital Sign Reading Time Taken Comments Blood Pressure 102/60 11/28/2023 12:07 PM CDT Pulse 54 11/28/2023 12:07 PM CDT Temperature 36.1 C (97 F) 11/28/2023 12:07 PM CDT Respiratory Rate 18 11/28/2023 12:07 PM CDT Oxygen Saturation 99% 11/28/2023 12:07 PM CDT Inhaled Oxygen Concentration - - Weight 91.2 kg (201 lb) 11/28/2023 12:07 PM CDT Height 176.5 cm (5' 9.5 ) 03/28/2023 10:01 AM CS T Body Mass Index 29.26 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 Treatment Upcoming Encounters Date Type Department Care Team (Late st Contact Info) Description 05/28/2024 10:15 AM CDT Office Visit [facility], [facility] [address] [place] [address] Chester Cordoba MD [address] [phone] Health Maintenance Due Date Last Done Comments Colorectal Cancer Screening: Annual FOBT 09/11/2000 Colorectal Cancer Screening: Colonoscopy 09/11/2000 Colorectal Cancer Screening: Sigmoidoscopy 09/11/2000 Pneumococcal Vaccine: 65+ Years (4 of 4 - PPSV23 or PCV20) 02/07/2020 12/12/2018, 02/06/2015, 02/05/2015, Additional history exists Diabetes: Ophthalmology Exam 07/16/2020 Diabetes: Pedal Pulse Checked 07/16/2020 Diabetes: Sensory Foot Exam 07/16/2020 Diabetes: Visual Foot Exam 07/16/2020 Diabetes: Hemoglobin A1C 07/24/2024 03/04/2 025, 01/24/2024, 11/14/2023, Additional history exists Influenza Vaccine Completed 12/19/2023, , 11/17/2019, Additional history exists Hepatitis B Vaccine Aged Out No longe r eligible based on patient's age to complete this topic Procedures Procedure Name Priority Date/Time Associated Diagnosis Comments EXT RESULT ENTRY Routine 11/14/2023 from Last 3 Months or Most Recently Relevant to Health Maintenance Results * (ABNORMAL) EXT RESULT ENTRY (11/14/2023) WBC 6.8 3.3 - 10.0 10*3/ML Red Blood Cell Count 4.73 Hemoglobin 14.7 13.5 - 17.5 Hematocrit 42.0 41.0 - 53.0 Platelets 233 150 - 399 10*3/UL MCV 88.8 82.0 - 108.0 Sodium 138 137 - 147 Potassium 5.1 3.4 - 5.5 Chloride 100.0 99.0 - 108.0 Carbon Dioxide 26 mmol/L Anion Gap 12 <=30 MMOL/L Glucose 112 60 - 200 BUN 28(A) 4 - 21 mg/dL Creatinine 1.60(A) 0.60 - 1.30 mg/dL Total Protein 8.0 6.4 - 8.2 G/DL Albumin 4.8 3.5 - 5.0 g/dL Calcium 10.3 8.7 - 10.7 mg/dL Phosphorus, Serum 2.8 eGFR Non-Afr German 43(L) PTH 77.5 PG/ML Vitamin D, 25-OH, Total 56.2 ng/mL Hemoglobin A1C 6.5(A) 4.0 - 6.0 Protein Urine Random 10 Creatinine, Urine Random 88.3 mg/dL Urine Protein/Creatinin e Ratio 0.11 mg/g creat Glucose, UA Negative mg/dL Bilirubin, UA Negative Ketones, UA Negative Urine Specific [place] 1.014 Blood, UA Negative [place]/ul pH, UA 7.0 Protein, UA Negative mg/dL Urobilinogen, UA 1.0 Nitrite, UA Negative Leukocytes, UA Negative Triglycerides 267(H) Cholesterol, Total 132 HDL 32 mg/dL LDL-Calculated 64 11/14/2023 Historical Provider LAB BLOOD ORDERABLES Clarissa l Result from Last 3 Months or Most Recently Relevant to Health Maintenance Insurance [facility] MEDIC[facility] Care Teams Supervisor [employer] Sewing Room Relationship Specialty Start Date End Date Torsten Pro MD [address] [place] [id number] PCP - General Family Medicine 11/28/23
--- OUTSIDE RECORDS SUMMARY | 2024-05-14 13:30 | XMS_ITS | Encounter Summary ---
Author Organization [facility] [employer] [facility] [employer] [facility] Address [address] [facility] [place] [address] Phone Care Team Providers Care Tube Wrapper Name Role Phone Torsten Pro MD Primary Care Provider [phone] Reason for Visit * Reason Comments Med Refill Encounter Details Date Type Department Care Team (Late st Contact Info) Description 10/21/2020 Refill [place] [employer] [facility] 2043 [facility] [address] [place] [address] Chester Cordoba MD [address] [facility] 1 [place] [address] Social History Tobacco Use Types Packs/Day Years Used Date Smoking Tobacco: Never Smokeless Tobacco: Never Alcohol Use Standard Drinks/Week Comments No 0 (1 standard drink = 0.6 oz pur e alcohol) Sex and Gender Information Value Date Recorded Sex Assigned at Not on file Legal Sex Male 2:49 PM EDT Gender Identity Not on file Sexual Orientation Not on file documented as of this encounter Plan of Treatment Upcoming Encounters Date Type Department Care Team (Late st Contact Info) Description 05/28/2024 10:15 AM CDT Office Visit [place] [employer] [facility] 2043 [facility] [address] [place] [address] Chester Cordoba MD [address] [facility] 1 [place] [address] documented as of this encounter Visit Diagnoses Not on filedocumented in this encounter Care Teams Tube Wrapper Relationship Specialty Start Date End Date Torsten Pro MD [address] [place] [address] PCP - General Family Medicine 11/28/23 documented as of this encounter
--- OUTSIDE RECORDS SUMMARY | 2024-05-14 13:30 | XMS_ITS | Encounter Summary ---
Author Organization [facility] [employer] [facility] Address [address] [place] [address] Phone Care Team Providers Care Global Cto Name Role Phone Torsten Pro MD Primary Care Provider [phone] Encounter Details Date Type Department Care Team (Late st Contact Info) Description 05/14/2024 Office Communication [place] [employer] [facility] [address] [address] [place] [address] [place] [address] 1 [place] [address] Social History Tobacco Use Types [...] on file documented as of this encounter Miscellaneous Notes * Telephone Encounter - Veronique Ulrich CMA - 05/14/2024 11:55 AM CDT DONE. * Telephone Encounter - Sara Kilpatrick - 05/14/2024 11:45 AM CDT Pt is having his labs done and the HA1C code did not work. I gave them the R73.09 and it did, but they need a new order faxed to them at [phone] with theCorrect Code. HA1C R73.09 Thank you documented in this encounter Plan of Treatment Upcoming Encounters Date Type Department Care Team (Late st Contact Info) Description 05/28/2024 10:15 AM CDT Office Visit [facility] 2043 [facility] 15 [place] [address] Chester Cordoba MD 1265 [facility] 1 [place] [address] documented as of this encounter Visit Diagnoses Not on filedocumented in this encounter Care Teams Global Cto Relationship Specialty Start Date End Date Torsten Pro MD [address] [place] [address] [address] [place] [address] PCP - General Family Medicine 11/28/23 documented as of this encounter
--- OUTSIDE RECORDS SUMMARY | 2024-05-14 13:30 | XMS_ITS | Encounter Summary ---
Author Organization [facility] Address [address] [place] [address] Care Team Providers Care Finance Advisor Name Role Phone Torsten Pro MD Primary Care Provider [phone] Chester Cordoba MD Unavailable [phone] Sky Herrmann MD Unavailable [phone] Encounter Details Date Type Department Care Team (Late st Contact Info) Description 04/27/2024 Results Follow-Up 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 Not on file Not on file Not on file documented as of this encounter Plan of Treatment Not on file documented as of this encounter Visit Diagnoses Not on filedocumented in this encounter Care Teams Finance Advisor Relationship Specialty Start Date End Date Torsten Pro MD [address] [place] [address] [address] [place] [address] PCP - General Family Medicine 10/25/23 Chester Cordoba MD 12[address] [facility] 1 [place] [address] Consulting Physician Nephrology 10/25/23 Sky Herrmann MD [address] [place] [address] Consulting Physician Otolaryngology 10/25/23 documented as of this encounter
--- OUTSIDE RECORDS SUMMARY | 2024-05-14 13:30 | XMS_ITS | Encounter Summary ---
Author Organization [facility] [employer] [facility] [employer] [facility] Address [address] [facility]1 [place] [address] Phone Care Team Providers Care Facility Maintenance Technician Name Role Phone Torsten Pro MD Primary Care Provider [phone] Reason for Visit * Reason Comments Med Refill Encounter Details Date Type Department Care Team (Late st Contact Info) Description 08/20/2020 Refill [place] [employer] [facility] [address] [employer] [address] [place] [address] Chester Cordoba MD [address] [facility] 1 [place] [address] Social History Tobacco Use Types Packs/Day Years Used Date Smoking Tobacco: Never Smokeless Tobacco: Never Alcohol Use Standard Drinks/Week Comments No 0 (1 standard drink = 0.6 oz pur e alcohol) Sex and Gender Information Value Date Recorded Sex Assigned at Not on file Legal Sex Male 2:49 PM EDT Gender Identity Not on file Sexual Orientation Not on file COVID-19 Exposure Response Date Recorded In the last month, have you been in contact with someone who was confirmed or suspected to have Coronavirus / COVID-19? No / Unsure 08/04/2020 11:20 AM EDT documented as of this encounter Plan of Treatment Upcoming Encounters Date Type Department Care Team (Late Contact Info) Description 05/28/2024 10:15 AM CDT Office Visit [place] [employer] [facility] [place] 20[address] [facility] [address] [place] [address] Chester Cordoba MD [address] [facility] 1 [place] [address] documented as of this encounter Visit Diagnoses Not on filedocumented in this encounter Care Teams Facility Maintenance Technician Relationship Specialty Start Date End Date Torsten Pro MD [address] [place] [address] [address] [place] [address] PCP - General Family Medicine 11/28/23 documented as of this encounter
--- OUTSIDE RECORDS SUMMARY | 2024-05-14 13:30 | XMS_ITS | Encounter Summary ---
Author Organization [facility] [employer] [facility] [employer] [facility] Address [address] [facility] [place] [address] Phone Care Team Providers Care Ladderman Name Role Phone Torsten Pro MD Primary Care Provider [phone] Reason for Visit * Reason Comments Med Refill Encounter Details Date Type Department Care Team (Late Contact Info) Description 04/22/2022 Refill [place] [facility] [address] [employer] [facility] 15 [place] [address] Chester Cordoba MD [address] [facility] 1 [place] [address] Encounter for issue of repeat prescription Social History Tobacco Use Types Packs/Day Years [...] Exposure Response Date Recorded In the last 10 days, have yo u been in contact with someone who was confirmed or suspected to have Coronavirus/COVID-19? 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 15 [place] [address] Chester Cordoba MD [address] [facility] [place] [address] documented as of this encounter Visit Diagnoses Diagnosis Encounter for issue of repeat prescription documented in this encounter Care Teams Ladderman Relationship Specialty Start Date End Date Torsten Pro MD [address] [place] [address] [address] [place] [address] PCP - General Family Medicine 11/28/23 documented as of this encounter
--- OUTSIDE RECORDS SUMMARY | 2024-05-14 13:30 | XMS_ITS | Encounter Summary ---
Author Organization [facility] Address [address] [place] [address] Phone Care Team Providers Care Mobility Manager Name Role Phone KalebOlena cantu Faina REBOLLEDO Primary Care Provider + Taiwo Douglas MD Primary Care Provider [phone] Brando Helton MD Primary Care Provider [phone] Torsten Pro MD Primary Care Provider [phone] Chester Cordoba MD Unavailable [phone] Sky Herrmann MD Unavailable [phone] Encounter Details Date Type Department Care Team (Latest Contact Info) Description 03/27/2017 Orders Only [facility] CONVERSION Scanning, Provider Social History Tobacco Use Types Packs/Day Years Used Date Smoking Tobacco: Never Sex and Gender Information Value Date Recorded Sex Assigned at Not on file 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 Gender Identity Not on file Sexual Orientation Not on file documented as of this encounter Plan of Treatment Not on file documented as of this encounter Procedures Procedure Name Priority Date/Time Associated Diagnosis Comments VASCULAR LABORATORY REPORT 03/27/2017 9:12 PM ORNAMENTAL RAIL INSTALLER documented in this encounter Results * VASCULAR LABORATORY REPORT (03/27/2017 9:12 PM ORNAMENTAL RAIL INSTALLER) Anatomical Region Laterality Modality Ultrasound us Provider Scanning CV VASCULAR PROCEDURES Final R esult documented in this encounter Visit Diagnoses Not on filedocumented in this encounter Care Teams Mobility Manager Relationship Specialty Start Date End Date Olena Abarca PA [address] [place] [address] PCP - General 03/24/17 03/27/17 Taiwo Douglas MD [address] [place] [address] PCP - General 03/28/17 01/27/20 Brando Helton MD [address] [place] [address] PCP - General Internal Medicine 01/28/20 10/24/23 Torsten Pro MD [address] [facility] [address] [place] [address] PCP - General Family Medicine 10/25/23 Chester Cordoba MD [address] [facility] 1 [place] [address] Consulting Physician Nephrology 10/25/23 Sky Herrmann MD [address] [facility] [address] [place] [address] Consulting Physician Otolaryngology 10/25/23 documented as of this encounter
--- OUTSIDE RECORDS SUMMARY | 2024-05-14 13:30 | XMS_ITS | Continuity of Care Document ---
Author Organization [facility] Address [address] [place] [address] Phone Care Team Providers Care Licensed Social Worker Name Role Phone Unavailable Unavailable Unavailable Medications Medication Instructions Dosage Effective Dates (start - stop) Status Comments Valium 5 mg tablet take 1 tablet by ora l route 2 times every day 5 MG - Active Valium 5 mg tablet take 1 tablet by ora l route 2 hours before appointment - Active Procedures Procedure Date Office Visit (No Chrg) Comprehensive Oral Evaluation-New/Est Pt Limit Oral Evaluation- problem focused F Dental Panoramic Radiographic Image Limit Oral Evaluation- problem focused O Extraction erupted tooth or exposed root Extraction erupted tooth or exposed root Periapical Radiographic, first Image Nov Advance Directives Directive Yes / No Effective Date File Name No Information Encounters Encounter Description Practice Location Reason(s) For Visit Diagnoses Date Provider Providers Copied on Encounter [facility] [facility] , [address], [place], [place], [id number], tel:[phone] [facility] Encounter for dental exam and cleaning w abnormal findings No Information [employer] [facility] , [address], [place], [place], [id number], tel:[phone] [facility] Encounter for dental exam and cleaning w abnormal findings 0 No Information [employer] [facility] , [address], [place], [place], [id number], tel:[phone] [facility] Encounter for dental exam and cleaning w abnormal findings 0 No Information [facility] , [address], [place], [place], [address], [place] tel:[phone] [facility] Encounter for dental exam and cleaning w abnormal findingsRisk for dental caries, high 9 No Information Family History Family Member Type Diagnosis Age At Onset No Information Payers Payer name Insurance type Covered alliance party ID Madison miller(s) Mel [facility] COMMERCIAL [id number] Social History Type Description Quantity Date Captured Comments Sex Male Smoking Status No Information Chief Complaint And Reason For Visit No Information Reason For Referral Reason For Referral No Information History Of Present Illness Encounter Date Complaint History Of Prese nt Illness No Information Functional Status Date Functional Assessmen t No Information Instructions Date Instruction Additional Infor mation No Information Assessments Type Assessment Date No Information Patient Care Teams Name Effective Dates (start - stop) Status Members No Information
--- OUTSIDE RECORDS SUMMARY | 2024-05-14 13:31 | XMS_ITS | Data Portability ---
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 Name Role Phone CLARE HELTON Primary Care Provider [phone] CLARE HELTON Referring Provider Assessment Encounter Date Assessment Date Assessment LastModified by Organization Details LastModified Time 08/25/2022 08/25/2022 EKG shows a normal sinus rhythm with no acute changes echo Holter blood work he will follow-up in a few months blood work reviewed Not available 08/25/2022 21:01:23 11/29/2022 11/29/2022 Will continue current therapy see me back in 3 months consider rescanning his abdomen and pelvis 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 Lab None recorded. Referral None recorded. Procedures None recorded. Surgeries None recorded. Imaging US, echocardiog hamilton 2022 023 [facility], [address] [place] [address], [id number], 4 09:16:19 holter monitor - 2wk holter 2022 023 [facility], [address] [place] [address], [address], 3 08:55:53 electrocard iogram 2022 023 [email or web address] [facility] Med [address] [place], [place], [address], 15:25:37 Medication Orders None recorded. Patient TargetsNo targets recorded. Patient InstructionsNo instructions recorded. Reason for Referral None Reported. Results Created Date Observation Date Name Description Value Unit Range Abnormal Flag Note LastModifiedBy Organization Detail LastModifiedTime 08/26/19 elect rocar diogr am No observ ation record ed. [facility] Internal Med [address] [place], [place], [address], 08/25/2022 12:32:49 08/27/19 23 08/25/2022 elect rocar diogr am No observ ation record ed. BARCODE [facility] Internal [address] [place], [place], [address], 08/26/2022 10:45:17 02/22/19 24 02/22/2023 MRI, cervi yen spine , w/o contr ast No observ ation record ed. [address], [address], 02/27/2023 10:21:22 02/22/19 24 02/22/2023 MRI, thora cic spine , w/o contr ast No observ ation record ed. [address], [address], 02/27/2023 10:21:23 02/23/19 24 02/22/2023 MRI, thora cic spine , w/o contr ast No observ ation record ed. [address], [address], 02/27/2023 10:21:24 02/23/19 24 02/22/2023 MRI, cervi yen spine , w/o contr ast No observ ation record ed. [address], [place], [address], 02/27/2023 10:21:24 03/11/19 24 03/11/2023 XR, foot No observ ation record ed. [address], [place], [address], 03/13/2023 17:05:27 05/25/19 24 05/25/2023 MRI, abdom en, w/o contr ast No observ ation record ed. [address], [place], [address], 05/27/2023 15:54:19 05/25/19 24 05/25/2023 MRI, pelvi s, w/o contr ast No observ ation record ed. [address], [place], [address], 05/27/2023 15:50:48 Result Notes None recorded. 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 63787977356 9106 Active 2020 Not Available [facility] 3 02:51:33 Neuropath y 204304370 Active 2019 residual from back surgery Not Available [facility] 3 02:51:33 Inguinal hernia 333682268 Active 2021 Not Available [facility] 3 02:51:33 Type 2 diabetes mellitus 67417271 Active 2019 Not Available [facility] 3 02:51:33 Hyperlipi demia 05351257 Active 2019 Not Available [facility] 3 02:51:33 Essential hypertens ion 81071845 Active 2019 Not Available [facility] 3 02:51:33 Swollen abdomen 09424288 Active 2021 Not Available [facility] 3 02:51:33 Intervert ebral disc prolapse 57231733 Active 2019 Not Available [facility] 3 02:51:33 Neck pain 52033980 Active 2021 Not Available [facility] 3 02:51:33 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 Please review these documents and add these problems to the patient's chart manually as needed. Problem Notes None recorded. 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 Not Available [facility] 04/20/2022 02:45:45 Cataract Surgery completed Not Available [facility] 04/20/2022 02:45:45 capsulotomy of lens completed Not Available [facility] 04/20/2022 02:45:45 Imaging Results Imaging Date Name Status LastModified by Organization Details LastModified Time 08/25/2022 electrocardiogram completed [email or web address] [facility] Internal [address] [place], [place], [address], 08/25/2022 12:32:49 08/25/2022 electrocardiogram completed [email or web address] [address] [place], [place], [address], 08/26/2022 10:45:17 02/22/2023 MRI, cervical spine, w/o contrast completed [address], [address], 02/27/2023 10:21:22 02/22/2023 MRI, thoracic spine, w/o contrast completed [address], [address], 02/27/2023 10:21:23 02/22/2023 MRI, thoracic spine, w/o contrast completed [address], [address], 02/27/2023 10:21:24 02/22/2023 MRI, cervical spine, w/o contrast completed [address], [address], 02/27/2023 10:21:24 03/11/2023 XR, foot completed [address], [address], 03/13/2023 17:05:27 05/25/2023 MRI, abdomen, w/o contrast completed [address], [address], 05/27/2023 15:54:19 05/25/2023 MRI, pelvis, w/o contrast completed [address], [address], 05/27/2023 15:50:48 Procedure Notes None recorded. Medical Equipment None Reported. Allergies No known drug allergies Medications Name Sig Start Date Stop Date Status Note LastModified by Organization Details LastModified Time amoxicill in 500 mg capsule TAKE 1 CAPSULE BY MOUTH THREE TIMES A DAY FOR 7 DAYS 06/24 completed Not Available Not Available Not Available methocarb carl 500 mg tablet TAKE 1 TABLET BY MOUTH THREE TIMES A DAY 11/18 completed Not Available Not Available Not Available metformin 500 mg tablet TAKE 1 TABLET BY MOUTH TWICE A DAY 03/27 completed Not Available Not Available Not Available atorvasta tin 10 mg tablet TAKE 1 TABLET BY MOUTH EVERYDAY AT BEDTIME active Not Available Not Available No t Available tizanidin e 4 mg tablet TAKE 1 TABLET BY MOUTH TWICE A DAY 03/27 completed Not Available Not Available Not Available hydrocodo ne 5 mg-acetam inophen 325 mg tablet TAKE 1 - 2 TABLET BY MOUTH EVERY 6 HOURS NEEDED FOR PAIN 03/31 completed Not Available Not Available Not Available glipizide ER 5 mg tablet, extended release 24 hr TAKE 1 TABLET BY MOUTH DAILY W/ LARGEST MEAL 03/27 completed changed to Glimeper zachary Not Available Not Available Not Available penicilli n V potassium 500 mg tablet TK 1 T PO Q 8 H FOR 7 DAYS 03/27 completed Not Available Not Available Not Available amlodipin e 2.5 mg tablet TAKE 1 TABLET BY MOUTH EVERY DAY 08/[address] [place] took off Not Available Not Available Not Available ciproflox acin 500 mg tablet TAKE 1 TABLET BY MOUTH EVERY 12 HOURS active Not Available Not Available No t Available tramadol 50 mg tablet TAKE 1 TABLET BY MOUTH TWICE A DAY NEEDED 03/27 completed Not Available Not Available Not Available amoxicill in 500 mg tablet Take 1 tablet 3 times a day by oral route for 7 days. 06/25 completed Not Available Not Available Not Available magnesium oxide 400 mg (241.3 mg magnesium ) tablet TAKE 2 TABLETS BY MOUTH EVERY DAY 03/27 completed Not Available Not Available Not Available tamsulosi n 0.4 mg capsule TAKE 1 CAPSULE BY MOUTH EVERY DAY active Not Available Not Available No t Available gemfibroz il 600 mg tablet TAKE 1 TABLET BY MOUTH TWICE A DAY active Not Available Not Available No t Available glimepiri de 4 mg tablet TAKE 1 TABLET BY MOUTH EVERY DAY active Not Available Not Available No t Available docusate sodium 100 mg capsule TAKE 1 CAPSULE BY MOUTH EVERY DAY 11/26 completed Not Available Not Available Not Available lisinopri l 5 mg tablet TAKE 1 TABLET BY MOUTH EVERY DAY active Not Available Not Available No t Available diazepam 10 mg tablet TK SS TABLET PO BID PRN. MUST LAST 30 DAYS. 03/27 completed Not Available Not Available Not Available ibuprofen 600 mg tablet TAKE 1 TABLET EVERY 6 HOURS NEEDED FOR PAIN 03/31 completed Not Available Not Available Not Available lisinopri l 2.5 mg tablet TAKE 1 TABLET BY MOUTH EVERY DAY active Not Available Not Available No t Available finasteri de 5 mg tablet TAKE 1 TABLET BY MOUTH EVERY DAY active Not Available Not Available No t Available diazepam 5 mg tablet TAKE 1 TABLET BY MOUTH 1 HOUR BEFORE DENTAL APPOINTM ENTS 05/27 completed Not Available Not Available Not Available Adult Low Dose Aspirin 81 mg tablet,de layed release Take 1 tablet every day by oral route. 2019 active Not Available Not Available Not Avai lable duloxetin e 30 mg capsule,d elayed release TAKE 1 CAPSULE BY MOUTH EVERY DAY 03/27 completed Not Available Not Available Not Available duloxetin e 60 mg capsule,d elayed release TAKE 1 CAPSULE BY MOUTH EVERY DAY 05/27 completed Not Available Not Available Not Available Vitamin D3 2020 active Not Available Not Available Not Avai lable FiberCon 2020 active Not Available Not Available Not Avai lable apple cider vinegar 2020 active Not Available Not Available Not Avai lable Multivita min 50 Plus one daily 2019 active Not Available Not Available Not Avai lable hydrochlo rothiazid e 12.5 mg tablet TAKE 1 TABLET BY MOUTH EVERY DAY active Not Available Not Available No t Available biotin 2,500 mcg capsule Take 1 capsule every day by oral route. 10/29 completed Not Available Not Available Not Available GaviLyte- N 420 gram oral solution TAKE DIRECTED BY DR RUSSELL active Not Available Not Available No t Available Prevnar 13 (PF) 0.5 mL intramusc ular syringe TO BE ADMINIST ERED BY PHARMACI ST FOR IMMUNIZA TION 03/27 completed Not Available Not Available Not Available Vitamin B12 50 mg daily 10/29 completed Not Available Not Available Not Available Fish Oil 1,000 mg (120 mg-180 mg) capsule Take 1 capsule every day by oral route. 2019 active Not Available Not Available Not Avai lable magnesium 400 mg (as magnesium oxide) tablet TAKE 2 TABLETS BY MOUTH EVERY DAY 03/27 completed Not Available Not Available Not Available Afluria Qd 2018- (36 mos up)(PF)60 mcg (15 mcg x4)/0.5 mL IM syringe TO BE ADMINIST ERED BY PHARMACI ST FOR IMMUNIZA TION 03/27 completed Not Available Not Available Not Available Flucelvax Quad (PF) 60 mcg (15 mcg x 4)/0.5 mL IM syringe 01/28 completed Not Available Not Available Not Available Vitals Date Recorded Body height Body mass index (BMI) Body weight Body temperature Heart rate Systolic blood pressure Diastolic blood pressure Provider Name and Address Organization Details Last Updated DateTime 3 175.26 cm 29.5 kg/m2 73388.4 7 g 98.1 [degF] 66 /min 118 mm[Hg] 70 mm[Hg] MICHELLE Vázquez [place] [employer] [facility] [employer] 3 11:49:43 Date Recorded Body height Body weight Body temperature Heart rate Oxygen saturation Oxygen saturation in Arterial blood by Pulse oximetry Systolic blood pressure Diastolic blood pressure Provider Name and Address Organization Details Last Updated DateTime 3 175.26 cm 53744.4 7 g 97.6 [degF] 76 /min 97 % 97 % 118 mm[Hg] 76 mm[Hg] Brittany Tian, [facility] [employer] 3 10:58:45 Date Recorded Body height Body mass index (BMI) Body weight Body temperature Heart rate Systolic blood pressure Diastolic blood pressure Provider Name and Address Organization Details Last Updated DateTime 4 175.26 cm 29.5 kg/m2 06129.4 7 g 97.9 [degF] 60 /min 120 mm[Hg] 70 mm[Hg] MICHELLE Vázquez [place] [employer] [facility] [employer] 4 14:52:14 Date Recorded Body mass index (BMI) Body height Heart rate Body temperature Body weight Systolic blood pressure Diastolic blood pressure Provider Name and Address Organization Details Last Updated DateTime 2 31.5 kg/m2 175.26 cm 62 /min 98.3 [degF] 87863.1 7 g 124 mm[Hg] 70 mm[Hg] Not Available [facility] 3 02:47:50 Date Recorded Body mass index (BMI) Body height Heart rate Body temperature Body weight Systolic blood pressure Diastolic blood pressure Provider Name and Address Organization Details Last Updated DateTime 3 31.3 kg/m2 175.26 cm 78 /min 97.8 [degF] 87971.5 8 g 118 mm[Hg] 78 mm[Hg] Not Available [facility] 3 02:47:50 Social History Question Answer Notes LastModified by Active Implantsat ion Details LastModified Time Tobacco Smoking Status Never Smoker Not Available [facility] 04/20/2022 02:36:27 Do You Have An Advance Directive? Yes MIGRATION.13915 [id number] Information not available 04/20/2022 What Is Your Level Of Alcohol Consumption? None MIGRATION.14533 16776 Information not available 04/20/2022 Are You Blind Or Do You Have Difficulty Seeing? No MIGRATION.04007 47353 Information not available 04/20/2022 What Is Your Level Of Caffeine Consumption? None MIGRATION.47397 65770 Information not available 04/20/2022 How Much Tobacco Do You Chew? None MIGRATION.42927 61542 Information not available 04/20/2022 In The 14 Days Before Symptom Onset, Have You Had Close Contact With A Laboratory-confir med COVID-19 While That Case Was Ill? No MIGRATION.58744 72227 Information not available 04/20/2022 In The 14 Days Before Symptom Onset, Have You Had Close Contact With A Person Who Is Under Investigation For COVID-19 While That Person Was Ill? No MIGRATION.07475 97873 Information not available 04/20/2022 Are You Deaf Or Do You Have Serious Difficulty Hearing? No MIGRATION.56716 02757 Information not available 04/20/2022 What Type Of Diet Are You Following? REGULAR MIGRATION.67046 15304 Information not available 04/20/2022 Which Illicit Or Recreational Drugs Have You Used? None MIGRATION.20820 18258 Information not available 04/20/2022 Do You Or Have You Ever Used E-cigarettes Or Vape? Never Used Electronic Cigarettes MIGRATION.57099 44348 Information not available 04/20/2022 What Is The Highest Grade Or Level Of School You Have Completed Or The Highest Degree You Have Received? [id number] MIGRATION.70860 95900 Information not available 04/20/2022 What Is Your Occupation? Retired MIGRATION.32133 76367 Information not available 04/20/2022 Have There Been Any Changes To Your Family Or Social Situation? No MIGRATION.48736 07885 Information not available 04/20/2022 What Is The Fluoride Status Of Your Home? Unknown MIGRATION.76722 81186 Information not available 04/20/2022 Are There Any Guns Present In Your Home? No MIGRATION.27595 62778 Information not available 04/20/2022 Do You Use Insect Repellent Routinely? No MIGRATION.17561 28942 Information not available 04/20/2022 Where Do You Live? Apartment MIGRATION.11450 02302 Information not available 04/20/2022 Do You Have A Medical Power Of Vending Machine Repairer? Yes MIGRATION.47211 79118 Information not available 04/20/2022 What Was The Date Of Your Most Recent Tobacco Screening? 03/14/2023 [email or web address] Information not available 03/14/2023 Do You Have Any Pets? No MIGRATION.47194 29017 Information not available 04/20/2022 What Is Your Relationship Status? MIGRATION.09755 85136 Information not available 04/20/2022 Do You Use Your Seat Belt Or Car Seat Routinely? Yes MIGRATION.30466 29622 Information not available 04/20/2022 Do You Have Smoke And Carbon Monoxide Detectors In Your Home? Yes MIGRATION.21750 00470 Information not available 04/20/2022 Are You Passively Exposed To Smoke? No MIGRATION.94712 76141 Information not available 04/20/2022 Do You Or Have You Ever Used Smokeless Tobacco? Never Used Smokeless Tobacco MIGRATION.30197 87689 Information not available 04/20/2022 Are There Any Smokers In Your House? No MIGRATION.62658 44614 Information not available 04/20/2022 How Much Tobacco Do You Smoke? No MIGRATION.85219 37026 Information not available 04/20/2022 What Types Of Sporting Activities Do You Participate In? None MIGRATION.53220 62342 Information not available 04/20/2022 Do You Feel Stressed (tense, Restless, Nervous, Or Anxious, Or Unable To Sleep At Night)? [id number] MIGRATION.80758 31486 Information not available 04/20/2022 Do You Use Any Illicit Or Recreational Drugs? No MIGRATION.66942 95429 Information not available 04/20/2022 Do You Use Sunscreen Routinely? No MIGRATION.79005 92406 Information not available 04/20/2022 Has Tobacco Cessation Counseling Been Provided? No Not Needed-ne varinder Smoked MIGRATION.35554 16692 Information not available 04/20/2022 How Many Years Have You Smoked Tobacco? 0 MIGRATION.40544 07289 Information not available 04/20/2022 Have You Recently Traveled Abroad? No MIGRATION.90690 19907 Information not available 04/20/2022 Do You Have Any Dietary Restrictions? No MIGRATION.75922 50058 Information not available 04/20/2022 Do You Or Have You Ever Used Any Other Forms Of Tobacco Or Nicotine? No MIGRATION.55923 69816 Information not available 04/20/2022 Sex: Male Functional Status Question Answer Note LastModified by Active Implantsat ion Details LastModified Time Do you have difficulty walking or climbing stairs? Yes MIGRATION.94900 16329 Information not available 04/20/2022 Do you have transportation difficulties? Yes MIGRATION.09862 89897 Information not available 04/20/2022 Are you able to walk? YESASSIST uses cane MIGRATION.34549 31247 Information not available 04/20/2022 Do you have difficulty doing errands alone? Yes Patient does not drive. MIGRATION.95684 80450 Information not available 04/20/2022 Are you able to care for yourself? Yes MIGRATION.13619 02787 Information not available 04/20/2022 Do you have difficulty dressing or bathing? No MIGRATION.78595 21493 Information not available 04/20/2022 What is your exercise level? Moderate walking, chair gym, compact elliptical Patient stated he walks 5 miles a day. MIGRATION.87841 95681 Information not available 04/20/2022 Mental Status Question Answer Note LastModified by psicofxpizat ion Details LastModified Time Do you have difficulty concentrating, remembering or making decisions? No MIGRATION.556979992 6 Information not available 04/20/2022 Family History Relationship Description Onset Age of this Age Resolved Age Notes LastModified by Organization Details LastModified Time Father Diabetes mellitus MIGRATION.299 1848110 Not available 04/20/2022 02:45:48 Father Glaucoma MIGRATION.700 [id number] Not available 04/20/2022 02:45:48 Father Hypertensive disorder MIGRATION.230 [id number] Not available 04/20/2022 02:45:48 Father Heart disease MIGRATION.623 8343281 Not available 04/20/2022 02:45:48 Father Kidney disease MIGRATION.915 [id number] Not available 04/20/2022 02:45:48 Medical History Condition Response NERVE DISEASE Y BLINDNESS N RHEUMATIC FEVER N KIDNEY STONES N BLADDER PROBLEMS N MRSA N OTHER # 1 N POLIO N LUNG DISEASE/DISORDER N RADIATION / CHEMOTHERAPY N COPD N Other # 2 N BLOOD DISEASES N SURGERY N EAR OR HEARING PROBLEMS N MUMPS N BOWEL PROBLEMS N DEPRESSION (INCLUDING POST ) N STROKE/TIA N ULCERS N BENIGN PROSTATIC HYPERPLASIA N MEASLES N MYOCARDIAL INFARCTION N OBESITY N GERD/NAUSEA N ANEURYSM N URINARY/BLADDER/KIDNEY PROBLEMS Y CORONARY ARTERY DISEASE (CAD) N ADDICTION CONCERNS N ENDOMETRIOSIS N Impotence N USE OF BLOOD THINNERS N SKIN PROBLEMS N GASTROINTESTINAL DISORDER N PERIPHERAL VASCULAR DISEASE N MUSCLE,JOINT OR BONE PROBLEMS N GASTROINTESTINAL BLEEDING N BLOOD CLOTS N ASTHMA N CATARACTS N ERECTILE DYSFUNCTION N VARICOSITIES N GI PROBLEMS N Low Testosterone N INFERTILITY N AIDS/HIV N CHEMOTHERAPY / RADIATION N LIVER DISEASE N MALE HYPOGONADISM N HYPERTENSION Y Deficiency N ANXIETY DISORDER N BLOOD TRANSFUSION N ANEMIA/BLOOD DISORDER N CHRONIC EAR INFECTIONS N BRONCHITIS N TUBERCULOSIS N GLAUCOMA N FOOT PROBLEM N DIVERTICULITIS N SLEEP APNEA N CHICKENPOX N INFECTIOUS DISEASE N HEART ARRHYTHMIA N PROSTATE Y INSOMNIA N HIGH CHOLESTEROL / HYPERLIPIDEMIA Y HYPERTHYROIDISM N EYE PROBLEMS N NEUROLOGICAL PROBLEMS N EDEMA N CHRONIC PAIN SYNDROME N HYPOTHYROIDISM N CAROTID BLOCKAGE N CONSTIPATION N BACK / NECK PROBLEMS Y HAVE YOU BEEN HOSPITALIZED OR SEEN IN [facility] IN THE PAST YEAR ? N ATHEROSCLEROSIS N BREAST PROBLEMS N DIALYSIS N ECZEMA N OSTEOPOROSIS N ARTHRITIS N APPENDICITIS N DIABETES, TYPE Y BAD TEETH N ENT N HEARTBURN / REFLUX N AUTISM SPECTRUM DISORDER (ASD) N HEPATITIS / LIVER DISEASE N GOUT N SLEEP DISORDER N ALZHEIMER'S DISEASE N Brain Problems N HERPES N DEMENTIA N HEADACHES/MIGRAINES N SEIZURES/EPILEPSY N VASCULAR DISEASE N PACEMAKER N Blood Disorder N DIZZINESS N HEART DISEASE/HEART PROBLEMS N KIDNEY DISEASE N MULTIPLE SCLEROSIS N CARDIAC ARRHYTHMIA N CANCER: SPECIFY N ATRIAL FIBRILLATION N Gall Stones N PULMONARY EMBOLISM N AUTOIMMUNE DISEASE N Immunizations Vaccine Type Date Status Note Provider Nam e and Address Organization Details Recorded Time COVID-19, mRNA, LNP-S, PF, 100 mcg/0.5mL dose or 50 mcg/0.25mL dose 1 completed Not Available [facility] 04/20/2022 02:58:55 Influenza, split virus, quadrivalent, preservative 0 completed Not Available [facility] 04/20/2022 02:58:55 Influenza, split virus, trivalent, preservative 0 completed Not Available [facility] 04/20/2022 02:58:56 Influenza, high-dose, quadrivalent, PF 9 completed Not Available [facility] 04/20/2022 02:58:56 Pneumococcal conjugate PCV 13 9 completed Not Available [facility] 04/20/2022 02:58:56 pneumococcal polysaccharide PPV23 5 completed Not Available [facility] 04/20/2022 02:58:56 COVID-19, mRNA, LNP-S, PF, 100 mcg/0.5mL dose or 50 mcg/0.25mL dose 2 completed Not Available [facility] 04/20/2022 02:58:56 COVID-19, mRNA, LNP-S, PF, 100 mcg/0.5mL dose or 50 mcg/0.25mL dose 2 completed Not Available [facility] 04/20/2022 02:58:56 Influenza, high-dose, trivalent, PF 1 completed Not Available [facility] 04/20/2022 02:58:56 COVID-19, mRNA, LNP-S, PF, 100 mcg/0.5mL dose or 50 mcg/0.25mL dose 1 completed Not Available [facility] 04/20/2022 02:58:56 COVID-19, mRNA, LNP-S, PF, 100 mcg/0.5mL dose or 50 mcg/0.25mL dose 1 completed Not Available [facility] 04/20/2022 02:58:56 Past Encounters Encounter ID Performer Location Encounter Start Date Encounter Closed Date Diagnosis/Indication Diagnosis SNOMED-CT Code Diagnosis ICD10 Code Diagnosis Note [id number] [facility] Internal Med [facility] [address] [place], [address] [address] 05/27/2020 00:00:00 05/27/2020 23:25:15 [id number] [facility] Internal Med [facility] [address] [place], [address] [address] 06/24/2020 00:00:00 07/12/2020 21:44:41 [id number] [facility] Internal Med [place] [address] [place] [address] 08/06/2020 00:00:00 08/06/2020 20:47:14 [id number] [facility] Internal Med [place] [address] [place] [address] 10/29/2020 00:00:00 10/29/2020 23:01:46 [id number] [facility] Internal Med [place] [address] [place] [address] 11/26/2020 00:00:00 12/13/2020 15:34:16 [id number] [facility] [address] [facility] [address] [place] [address] 12/10/2020 00:00:00 12/10/2020 11:40:02 [id number] [facility] Internal Med [facility] [address] [place] , [address] [address] 01/13/2021 00:00:00 01/14/2021 12:59:18 [id number] [facility] Internal Med [place] [address] [address] 02/25/2021 00:00:00 02/26/2021 12:05:03 [id number] [facility] Internal Med [place] [address] [place] [address] 07/08/2021 00:00:00 07/31/2021 16:40:08 [id number] [facility] [place] [address] [place] [address] [place] [address] 08/26/2021 00:00:00 08/27/2021 08:51:30 [id number] S_G Internal Med [place] [address] [place] [address] [place] [address] 10/07/2021 00:00:00 10/31/2021 21:04:44 [id number] [facility] [place] [address] [place] [address] [place] [address] 10/28/2021 00:00:00 11/07/2021 13:55:02 [id number] [facility] [place] [address] [place] [address] [place] [address] 11/18/2021 00:00:00 11/19/2021 11:46:18 [id number] [facility] [place] [address] [place] [address] [place] [address] 12/30/2021 00:00:00 12/31/2021 16:09:23 [id number] [facility] [place] [address] [place] [address] [place] [address] 03/31/2022 00:00:00 03/31/2022 13:54:31 [id number] Clare Helton MD [facility] Internal Med [place] [address] [place] [address] [place] [address] 08/25/2022 11:09:54 08/25/2022 12:54:25 Dizziness 854034652 R42 Palpitations 13504328 R0 0.2 Essential hypertension 69323105 I10 Hyperlipidemia 85639849 E78.5 Neuropathy 710321931 G62 .9 Type 2 thomas betes mellitus 40835552 E11.9 [id number] Clare Helton MD [facility] Internal Med [place] [address] [place] [address] [address] 11/29/2022 10:39:04 11/29/2022 12:51:32 Essential hypertension 08684022 I10 Hyperlipidemia 32309178 E78.5 Neuropathy 575952759 G62 .9 [id number] Clare Helton MD [facility] Internal Med [place] [address] [facility] [place] [address] 03/14/2023 14:33:00 03/14/2023 17:49:09 Essential hypertension 25020857 I10 Benign pro static hyperplasia 258194337 N40.0 Type 2 thomas betes mellitus 63868402 E11.9 Hyperlipidemia 22480294 E78.5 Health Concerns Section Related Observation LastModified by Organization Detai ls LastModified Time None Recorded Concern Status LastModified by Organization Details LastModified Time None Recorded Advance Directives Directive Y: Payers Encounter Date Sequence Insurance Name Policy Number Policy Mccoy Covered Member ID Mccoy Member ID Guarantor Name 08/25/2022 1 [facility] (MEDICARE REPLACEMENT/A DVANTAGE - HMO) [id number] Keyshawn Sanders [id number] Keyshawn Sanders 11/29/2022 1 [facility] (MEDICARE REPLACEMENT/A DVANTAGE - HMO) [id number] Keyshawn Sanders [id number] Keyshawn Sanders 03/14/2023 1 [facility] (MEDICARE REPLACEMENT/A DVANTAGE - HMO) [id number] Keyshawn Sanders [id number] Keyshawn Sanders Notes Date Note Type Note Provider Name and Address Organization Details Recorded Time 08/25/2022 text/html . Very brief episodes of palpitation and dizziness without any chest pain or shortness of breath. Dyslipidemia blood work reviewed. Hypertension no headache but brief episodes of dizziness. Diabetes A1c 6.2 Clare Helton MD [address], [place], [address], 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
--- OUTSIDE RECORDS SUMMARY | 2024-05-14 13:31 | XMS_ITS | Referral Summary ---
Author Organization [facility] Address [address] [place] [phone] Care Team Providers Care Expense Analyst Name Role Phone Torsten Pro MD Primary Care Provider [phone] Chester Cordoba MD Unavailable [phone] Sky Herrmann MD Unavailable [phone] Encounters Date Type Department Care Team Description 04/27/2024 Results Follow-Up [facility] Primary Care at [address] [address] Torsten Pro MD 04/25/2024 11:00 AM LABOR SERVICE REPRESENTATIVE Office Visit [facility] Primary Care at [address] [address] Torsten Pro MD Type 2 diabetes mellitus with stage 3b chronic kidney disease, without long-term current use of insulin (HCC) (Primary Dx); Hypertension associated with diabetes (HCC); Dyslipidemia due to type 2 diabetes mellitus (HCC); Bilateral carotid artery stenosis; Vitamin D3 deficiency 04/23/2024 9:07 AM LABOR SERVICE REPRESENTATIVE - 04/23/2024 11:59 PM LABOR SERVICE REPRESENTATIVE Hospital Encounter [address] [address] Need for hepatitis B screening test; Need for hepatitis C screening test; Vitamin D3 deficiency; Type 2 diabetes mellitus with stage 2 chronic kidney disease, without long-term current use of insulin (HCC); Dyslipidemia; Essential hypertension Discharge Disposition: Discharge to home or self care 04/23/2024 9:15 AM LABOR SERVICE REPRESENTATIVE Lab [facility] Outpatient Lab at [address] [address] Essential hypertension (Primary Dx) from Last 3 Months Allergies No known active allergies Medications aspirin 81 mg tablet daily. Active omega 8-bcr-bnr-fish oil 300-1,000 mg capsule 1 daily Active cholecalcifero l (VITAMIN D-3) 2,000 unit capsule 1 daily Active apple cider vinegar 600 mg capsule Take 1 capsule by mouth daily Active acetaminophen (TYLENOL) 500 mg tablet Take 1 tablet (500 mg total) by mouth every 6 (six) hours as needed for pain Active polycarbophil (FIBERCON) 625 mg tablet Take 2 tablets (1,250 mg total) by mouth daily Active hydroCHLOROthi azide 12.5 mg tablet Take 1 tablet (12.5 mg total) by mouth daily 90 tablet 3 04/24/19 026 Active lisinopriL (PRINIVIL,ZEST RIL) 2.5 mg tablet Take 1 tablet (2.5 mg total) by mouth daily 90 tablet 3 04/24/19 026 Active finasteride (PROSCAR) 5 mg tablet Take 1 tablet (5 mg total) by mouth daily 90 tablet 3 04/24/19 026 Active tamsulosin (FLOMAX) 0.4 mg extended release capsule Take 1 capsule (0.4 mg total) by mouth daily 90 capsule 04/24/19 026 Active glimepiride (AMARYL) 4 mg tablet Take 1 tablet (4 mg total) by mouth daily before breakfast 90 tablet 3 04/24/19 026 Active gemfibroziL (LOPID) 600 mg tablet Take 1 tablet (600 mg total) by mouth 2 (two) times a day 180 tablet 04/24/19 026 Active atorvastatin (LIPITOR) 10 mg tabletIndicati ons:Dyslipidem ia due to type 2 diabetes mellitus (HCC) Take 2 tablets (20 mg total) by mouth nightly 04/26/19 25 026 Active multivit-sock lining examiner als/folic acid (CENTRUM ADULTS ORAL) Take by mouth Act kimberly gemfibrozil (LOPID) 600 mg tablet 11/21/19 18 025 Discontinued(Re order) atorvastatin (LIPITOR) 10 mg tablet daily. 025 Discontinued(Re order) tamsulosin (FLOMAX) 0.4 mg extended release capsule 11/21/19 18 025 Discontinued(Re order) hydroCHLOROthi azide (HYDRODIURIL) 12.5 mg tablet Take 1 tablet (12.5 mg total) by mouth daily 1 08/22/19 18 025 Discontinued(Re order) finasteride (PROSCAR) 5 mg tablet daily. 025 Discontinued(Re order) ulojdghp-rep-Y M-bqctwcw-qzmb in 300-600-300 mcg tablet daily. 025 Discontinued glimepiride (AMARYL) 4 mg tablet Take 1 tablet (4 mg total) by mouth daily 10/24/19 24 025 Discontinued(Re order) lisinopriL (PRINIVIL,ZEST RIL) 2.5 mg tablet Take 1 tablet (2.5 mg total) by mouth daily 10/24/19 24 025 Discontinued(Re order) atorvastatin (LIPITOR) 10 mg tablet Take 1 tablet (10 mg total) by mouth nightly 90 tablet 3 04/24/19 25 025 Discontinued(Re order) Active Problems Problem Noted Date Diagnosed Date Bilateral carotid artery stenosis 04/25/2024 Encounter for Medicare annual wellness exam 09/2023 Assessment & Plan (01/28/2024 12:40 PM LABOR SERVICE REPRESENTATIVE): A(n) yearly Medicare Annual Wellness Visit has been performed today. Keyshawn Sanders is not up to date on screening tests. He is in need of Diabetic foot exam, Colon cancer screening, Diabetic kidney disease screening, Cholesterol screening, Hepatitis B, and Hepatitis C screen. He is not up to date on needed preventative vaccinations; He is in need of Zoster. We discussed healthy lifestyle habits, educational material has been given. Medications reviewed, changes documented as per the medical record and discussed with patient along with risks vs benefits. Specific topics reviewed: drugs, ETOH, and tobacco, importance of regular dental care, importance of regular exercise, importance of varied diet, limit TV, media violence, minimize junk food, and seat belts. 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 Keyshawn Sanders is not up to date on screening tests. He is in need of Colon cancer screening. He is not up to date on needed preventative vaccinations; He is in need of Influenza and Zoster. We discussed healthy lifestyle habits, educational material has been given. Medications reviewed, changes documented as per the medical record and discussed with patient along with risks vs benefits. Specific topics reviewed: drugs, ETOH, and tobacco, importance of regular dental care, importance of regular exercise, importance of varied diet, limit TV, media violence, minimize junk food, and seat belts. Return in 3 months Thyroid mass 09/04/2023 Dizziness 08/25/2022 Palpitations 08/25/2022 Neck pain 10/28/2021 Thoracic back pain 10/28/2021 Abnormal radiographic examination 09/15/2021 Inguinal hernia 09/15/2021 Abdominal pain 08/26/2021 Swollen abdomen 08/11/2021 Diabetic polyneuropathy asso ciated with type 2 diabetes mellitus 01/12/2021 Dystrophia unguium 12/10/2020 Neuropathy due to type 2 diabetes mellitus 12/10 Chronic hyperkalemia 08/03/2020 Dyslipidemia 08/03/2020 Prolapse of cervical interve rtebral disc without radiculopathy 03/26/2019 Neuropathy 03/26/2019 Overview (10/25/2023): residual from back surgery Type 2 diabetes mellitus without complication Chronic anxiety 01/01/2019 Depressive disorder 12/01/2017 Enlarged prostate 03/14/2017 Osteoarthritis of lumbar spine 03/14/2017 Tremor 03/13/2017 Impairment of balance 03/13/2017 Spinal stenosis 03/08/2017 Benign prostatic hyperplasia 08/02/2016 Chronic kidney disease 05/05/2016 Overview (10/25/2023): sees nephro Coronary arteriosclerosis 05/02/2016 Overview (10/25/2023): s/p AMI Diabetes mellitus 05/02/2016 Hyperlipidemia 05/02/2016 Essential hypertension 05/02/2016 Vitamin D3 deficiency 05/02/2016 Chronic low back pain 02/20/2008 Overview (10/25/2023): MRI=annular tear w/ small disc herniation at L4/L5. referred to pain mgmt ( h/o neurofibroma) Neurofibroma 02/19/1990 Overview (10/25/2023): T6-T9 s/p resection; 2008 MRI T-spine neg. Immunizations Immunization Administration Dates Next Due COVID-19 MRNA (MODERNA) .5 M L (50 MCG) VACCINE (12 YEARS AND UP) 12/19/2023,06/20/2023 Influenza, Quadrivalent, Hig h Dose, Preservative Free, Intrr 12/09/2022,11/01/2021,10/27/2020,12/12 Influenza, Quadrivalent, Spl it, Intramuscular 11/17/2019 Influenza, Quadrivalent, Spl it, Preservative Free, Intramuscular 12/12/2018 Influenza, Trivalent, High D ose, Split, Preservative Free, Intramuscular 12/19/2023,12/02/2017 Influenza, Trivalent, IM (MDV) 11/12/2019,2018,11/27/2017 Influenza, Unspecified 11/14/2016 Moderna SARS-CoV-2 Monovalen t Vaccination (12+ YRS) 11/01/2021,01/16/2021 Moderna Sars-cov-2 Bivalent Vaccine 50 Mcg/0.5 mL (12+ YRS)-Blue/Velarde 11/01/2021 Pneumococcal Conjugate PCV 13 12/12/2018 Pneumococcal Conjugate Pcv20 06/20/2023 Pneumococcal Polysaccharide PPV23 02/06/2015,02/2014 Sars-cov-2 Covid-19 Mrna, Bi valent, Original/omicron Ba.1 06/20/2023,12/09/2022 Tdap 11/02/2016 Social History Tobacco Use Types Packs/Day Years Used Date Smoking Tobacco: Never Smokeless Tobacco: Never Tobacco Cessation:Counseling Given: Not Answered PHQ-2 Answer Date Recorded PHQ-2 Total Score (If total score is 3 or more points, staff should administer the PHQ-9) 0 04/25/2024 Sex and Gender Information Value Date Recorded Sex Assigned at Not on file Legal Sex Male 7:27 AM LABOR SERVICE REPRESENTATIVE Gender Identity Not on file Sexual Orientation Not on file 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 on file Not on file Not on file Last Filed Vital Signs Vital Sign Reading Time Taken Comments Blood Pressure 122/80 04/25/2024 11:04 AM LABOR SERVICE REPRESENTATIVE Pulse 73 04/25/2024 11:04 AM LABOR SERVICE REPRESENTATIVE Temperature 36 C (96.8 F) 04/25/2024 11:04 AM LABOR SERVICE REPRESENTATIVE Respiratory Rate 18 04/25/2024 11:04 AM LABOR SERVICE REPRESENTATIVE Oxygen Saturation 98% 04/25/2024 11:04 AM LABOR SERVICE REPRESENTATIVE Inhaled Oxygen Concentration - - Weight 90.7 kg (200 lb) 04/25/2024 11:04 AM LABOR SERVICE REPRESENTATIVE Height 177.8 cm (5' 10 ) 04/25/2024 11:04 AM LABOR SERVICE REPRESENTATIVE Body Mass Index 28.7 04/25/2024 11:04 AM LABOR SERVICE REPRESENTATIVE Plan of Treatment Not on file Procedures Procedure Name Priority Date/Time Associated Diagnosis Comments EGFR Routine 04/23/2024 9:07 AM LABOR SERVICE REPRESENTATIVE Essential hypertension DIFFERENTIAL AUTO Routine 04/23/2024 9:0 7 AM LABOR SERVICE REPRESENTATIVE Essential hypertension ALBUMIN CREATININE RATIO, URINE Routine 04/23/2024 9:07 AM LABOR SERVICE REPRESENTATIVE Type 2 diabetes mellitus with stage 2 chronic kidney disease, without long-term current use of insulin (HCC) CBC WITH AUTO DIFFERENTIAL Routine 04/23/2024 9:07 AM LABOR SERVICE REPRESENTATIVE Essential hypertension COMPREHENSIVE METABOLIC PANEL Routine 04/23/2024 9:07 AM LABOR SERVICE REPRESENTATIVE Essential hypertension LIPID PANEL Routine 04/23/2024 9:07 AM LABOR SERVICE REPRESENTATIVE Dyslipidemia HEMOGLOBIN A1C Routine 04/23/2024 9:07 AM LABOR SERVICE REPRESENTATIVE Type 2 diabetes mellitus with stage 2 chronic kidney disease, without long-term current use of insulin (HCC) VITAMIN D 25 HYDROXY Routine 04/23/2024 9:07 AM LABOR SERVICE REPRESENTATIVE Vitamin D3 deficiency HEPATITIS B SURFACE ANTIBODY (IMMUNE STATUS) Routine 04/23/2024 9:07 AM LABOR SERVICE REPRESENTATIVE Need for hepatitis B screening test HEPATITIS C ANTIBODY Routine 04/23/2024 9:07 AM LABOR SERVICE REPRESENTATIVE Need for hepatitis C screening test HEPATITIS B SURFACE ANTIGEN Routine 04/23/2024 9:07 AM LABOR SERVICE REPRESENTATIVE Need for hepatitis B screening test HEPATITIS B CORE ANTIBODY, TOTAL Routine 04/23/2024 9:07 AM LABOR SERVICE REPRESENTATIVE Need for hepatitis B screening test HM DIABETES EYE EXAM Routine 12/13/2023 2:09 PM CDT from Last 3 Months or Most Recently Relevant to Health Maintenance Results * (ABNORMAL) eGFR (04/23/2024 9:07 AM LABOR SERVICE REPRESENTATIVE) eGFR 46(L) >=60 mL/min/1. 73 m2 Comment: Interpretive Data Reference Interval Normal >/= 90 mL/min/1.73m2 Mildly decreased* 60 - 89 mL/min/1.73m2 Mildly to moderately decreased 45 - 59 mL/min/1.73m2 Moderately to severely decreased 30 - 44 mL/min/1.73m2 Severely decreased 15 - 29 mL/min/1.73m2 Kidney Failure < 15 mL/min/1.73m2 *Relative to young adult level Estimated glomerular filtration rate is determined by the 2020 CKD-EPI equation recommended by the National Kidney Foundation (A Unifying Approach to GFR Estimation: Recommendations of the NKF-ASK Task Force on Reassessing the Inclusion of Race in Diagnosing Kidney Disease, JASN 202). The CKD-EPI equation should not be used for patients with unstable renal function and has not been validated in children and those over 70. Current interpretive data was last reviewed 2020. Blood 04/23/2024 9:07 AM LABOR SERVICE REPRESENTATIVE 04/23/2024 7:46 PM LABOR SERVICE REPRESENTATIVE us Torsten Pro MD LAB BLOOD ORDERABLES Final Result RADHA [id number] [place] [address] * Differential, auto (04/23/2024 9:07 AM LABOR SERVICE REPRESENTATIVE) Neutrophil abs 4.0 1.5 - 6.5 K/cumm Imm gran abs 0.0 0.0 - 0.1 K/cumm [facility] Lymphocyte abs 1.8 0.8 - 3.3 K/cumm [facility] Monocyte abs 0.5 0.2 - 0.8 K/cumm [facility] Eosinophil abs 0.2 0.0 - 0.5 K/cumm [facility] Basophil abs 0.0 0.0 - 0.1 K/cumm [facility] Neutrophil pct 60.9 % [facility] Comment: Interpretive Data Percent cell count reference ranges are not reported, since discordance with absolute values may lead to misinterpretation of CBC data. Current Interpretive Data was last revised on 2017. Imm gran pct 0.5 % [facility] Comment: Interpretive Data Percent cell count reference ranges are not reported, since discordance with absolute values may lead to misinterpretation of CBC data. Current Interpretive Data was last revised on 2017. Lymphocyte pct 27.6 % [facility] Comment: Interpretive Data Percent cell count reference ranges are not reported, since discordance with absolute values may lead to misinterpretation of CBC data. Current Interpretive Data was last revised on 2017. Monocyte pct 8.1 % [facility] Comment: Interpretive Data Percent cell count reference ranges are not reported, since discordance with absolute values may lead to misinterpretation of CBC data. Current Interpretive Data was last revised on 2017. Eosinophil pct 2.3 % [facility] Comment: Interpretive Data Percent cell count reference ranges are not reported, since discordance with absolute values may lead to misinterpretation of CBC data. Current Interpretive Data was last revised on 2017. Basophil pct 0.6 % [facility] Comment: Interpretive Data Percent cell count reference ranges are not reported, since discordance with absolute values may lead to misinterpretation of CBC data. Current Interpretive Data was last revised on 2017. Blood 04/23/2024 9:07 AM LABOR SERVICE REPRESENTATIVE 04/23/2024 7:21 PM LABOR SERVICE REPRESENTATIVE Torsten Pro MD LAB BLOOD ORDERABLES Final Result Performing Organization Address City/[facility] Co de Phone Number RADHA NIEVES [phone] [place], [place] [phone] * CBC with auto differential (04/23/2024 9:07 AM LABOR SERVICE REPRESENTATIVE) WBC 6.5 3.8 - 9.9 K/cumm Hgb 14.8 13.0 - 17.5 g/dL [facility] Hct 43.6 38.9 - 50.3 % [facility] CH Plt 210 150 - 400 K/cumm [facility] CH MPV 10.9 9.1 - 12.3 fL [facility] RBC 4.77 4.30 - 5.80 M/cumm [facility] MCV 91.4 81.3 - 96.4 fL [facility] MCH 31.0 27.1 - 33.3 pg [facility] MCHC 33.9 32.3 - 35.7 g/dL [facility] RDW CV 12.9 11.1 - 14.9 % [facility] RDW SD 42.7 35.7 - 48.1 fL [facility] NRBC abs 0.00 0.00 - 0.01 K/cumm [facility] Blood 04/23/2024 9:07 AM LABOR SERVICE REPRESENTATIVE 04/23/2024 7:21 PM LABOR SERVICE REPRESENTATIVE Torsten Pro MD LAB BLOOD ORDERABLES Final Result Performing Organization Address City/[facility] Co de Phone Number RADHA NIEVES [phone] Department [address] [place], [place] [phone] * Hepatitis C antibody Blood (04/23/2024 9:07 AM LABOR SERVICE REPRESENTATIVE) Hep C Ab Nonreactive Nonreactive Comment: Interpretive Data Nonreactive: Antibodies to HCV not detected. Does NOT exclude the possibility of recent exposure to HCV. Equivocal: Equivocal for HCV antibodies. Supplemental molecular testing will be automatically performed to determine infection status in accordance with current CDC screening recommendations. Reactive: Positive for HCV antibodies. This may represent current or past HCV infection. Supplemental molecular testing will be automatically performed to determine current infection status in accordance with current CDC screening recommendations. Interpretive data was last revised on 2019. Blood 04/23/2024 9:07 AM LABOR SERVICE REPRESENTATIVE 04/23/2024 7:21 PM LABOR SERVICE REPRESENTATIVE Torsten Pro MD LAB MICROBIOLOGY - GENERAL ORDERABLES Final Result Performing Organization Address City/[facility] Co de Phone Number RADHA [phone] Department [facility] [place], [place] [phone] * Albumin Creatinine Ratio, Urine (04/23/2024 9:07 AM LABOR SERVICE REPRESENTATIVE) Albumin Ur 23.5 mg/L Comment: Interpretive Data No reference range established. Current interpretive data was last revised 2018. Creatinine Ur 92.6 mg/dL [facility] Comment: Interpretive Data No reference range established. Current interpretive data was last revised 2018. Albumin Creatinine Ratio, Ur 25 1 - 29 mg/g [facility] Urine 04/23/2024 9:07 AM LABOR SERVICE REPRESENTATIVE 04/23/2024 7:21 PM LABOR SERVICE REPRESENTATIVE Torsten Pro MD LAB URINE ORDERABLES Final Result Performing Organization Address City/[facility] Co de Phone Number RADHA [phone] [place] [address] * Hepatitis B core antibody, total Blood (04/23/2024 9:07 AM LABOR SERVICE REPRESENTATIVE) Hep B core IgG/IgM Nonreactive Nonreactive Comment:Testing performed by : [facility], [address], [place]., [address] Blood 04/23/2024 9:07 AM LABOR SERVICE REPRESENTATIVE 04/24/2024 9:59 AM LABOR SERVICE REPRESENTATIVE Result [facility] Torsten Pro MD LAB MICROBIOLOGY - GENERAL ORDERABLES Final Result Performing Organization Address City/[facility] Co de Phone Number RADHA NIEVES [phone] [address] [facility] [address] [place] [address] * (ABNORMAL) Vitamin D 25 hydroxy (04/23/2024 9:07 AM LABOR SERVICE REPRESENTATIVE) Pathologist [facility] Vitamin D 25-OH 29(L) 30 - 80 ng/mL Blood 04/23/2024 9:07 AM LABOR SERVICE REPRESENTATIVE 04/23/2024 7:21 PM LABOR SERVICE REPRESENTATIVE Result [facility] Torsten Pro MD LAB BLOOD ORDERABLES Final Result Performing Organization Address [facility] Phone Number RADHA NIEVES [phone] [address] [facility] [address] [place] [address] * Hepatitis B surface antibody (immune status) Blood (04/23/2024 9:07 AM LABOR SERVICE REPRESENTATIVE) [facility] HBsAb (immune status) Nonreactive Comment: Interpretive Data Nonreactive: This result is consistent with a lack of immunity to Hepatitis B Virus when used in the setting of routine screening. Equivocal: The immune status of the individual should be further assessed, if appropriate, after consideration of clinical status, risk factors, and additional diagnostic information. Reactive: This result is consistent with immunity to Hepatitis B Virus when used in the setting of routine screening. Current interpretive data was last revised on 19. Blood 04/23/2024 9:07 AM LABOR SERVICE REPRESENTATIVE 04/23/2024 7:21 PM LABOR SERVICE REPRESENTATIVE Result [facility] Torsten Pro MD LAB MICROBIOLOGY - GENERAL ORDERABLES Final Result Performing Organization Address [facility] Co de Phone Number RADHA NIEVES [phone] [address] [facility] [address] [place] [address] * Hepatitis B Surface Antigen Blood (04/23/2024 9:07 AM LABOR SERVICE REPRESENTATIVE) Pathologist [facility] HepBsAg Nonreactive Nonreactive Blood 04/23/2024 9:07 AM LABOR SERVICE REPRESENTATIVE 04/23/2024 7:21 PM LABOR SERVICE REPRESENTATIVE Torsten Pro MD LAB MICROBIOLOGY - GENERAL ORDERABLES Final Result Performing Organization Address [facility] Phone Number RADHA NIEVES [phone] [place] [address] * (ABNORMAL) Hemoglobin A1c (04/23/2024 9:07 AM LABOR SERVICE REPRESENTATIVE) Hgb A1C 6.3(H) 4.0 - 5.6 % Estimated Average Glucose 134 mg/dL [facility] NIEVES Comment: The ADA recommends reporting an estimated Average Glucose (eAG) with all Hemoglobin A1c results using the equation derived from a study of 507 normal and diabetic adults. Minority populations were underrepresented and children were not included. (Diabetes Care 31:1672-0658, 2008). The eAG is not equivalent to a fasting glucose. Blood 04/23/2024 9:07 AM LABOR SERVICE REPRESENTATIVE 04/23/2024 7:21 PM LABOR SERVICE REPRESENTATIVE Torsten Pro MD LAB BLOOD ORDERABLES Final Result Performing Organization Address [facility] Phone Number RADHA NIEVES [phone] [address] [facility] [address] [place] [address] * (ABNORMAL) Lipid panel (04/23/2024 9:07 AM LABOR SERVICE REPRESENTATIVE) Cholesterol 146 30 - 199 mg/dL Comment: Interpretive Data Ages < or = 19 years Acceptable: <170 mg/dL Borderline high: 170-199 mg/dL High: >or= 200 mg/dL Ages > or = 20 years Desirable: <200 mg/dL Borderline high: 200-239 mg/dL High: >or= 240 mg/dL Literature References: 1. Expert Panel on Integrated Guidelines for Cardiovascular Health and Risk Reduction in Children and Adolescents. Pediatrics 2011;128:S213 2. NCEP Expert Panel. Circulation 2004;110:227 Current Interpretive Data was last revised on 2017. Triglycerides 219(H) <=149 mg/dL [facility] NIEVES Comment: Interpretive Data Ages < or = 9 years Acceptable: <75 mg/dL Borderline high: 75-99 mg/dL High: >or= 100 mg/dL Ages 10 to 20 years Acceptable: <90 mg/dL Borderline high: 90-129 mg/dL High: >or= 130 mg/dL Ages > or = 20 years Desirable: <150 mg/dL Borderline high: 150-199 mg/dL High: 200-499 mg/dL Very high: >or= 499 mg/dL Literature References: 1. Expert Panel on Integrated Guidelines for Cardiovascular Health and Risk Reduction in Children and Adolescents. Pediatrics 2011;128:S213 2. NCEP Expert Panel. Circulation 2004;110:227 Current Interpretive Data was last revised on 2017. HDL 29(L) >=40 mg/dL [facility] NIEVES Comment: Interpretive Data Ages < or = 19 years Acceptable: >45 mg/dL Borderline low: 40-45 mg/dL Low: <40 mg/dL Ages > or = 20 years Desirable: >or= 60 mg/dL Low: <40 mg/dL Literature References: 1. Expert Panel on Integrated Guidelines for Cardiovascular Health and Risk Reduction in Children and Adolescents. Pediatrics 2011;128:S213 2. NCEP Expert Panel. Circulation 2004;110:227 Current Interpretive Data was last revised on 2017. LDL, calculated 80 <=129 mg/dL RAD[facility] NIEVES Comment: Interpretive Data Ages < or = 19 years Acceptable: <110 mg/dL Borderline high: 110-129 mg/dL High: >or= 130 mg/dL Ages > or = 20 years Optimal: <100 mg/dL Near optimal: 100-129 mg/dL Borderline high: 130-159 mg/dL High: >160 mg/dL Calculated using the David LDL-C estimating equation. This equation was implemented on 2023. Prior to this date LDL-C was estimated using the Friedewald equation. Literature References: 1. Expert Panel on Integrated Guidelines for Cardiovascular Health and Risk Reduction in Children and Adolescents. Pediatrics 2011;128:S213 2. NCEP Expert Panel. Circulation 2004;110:227 3. David Mac al. ERIC Cardiol. 2020 June 20;5(5):540-548. doi: 10.1001/[email or web address] Current Interpretive Data was last revised on 2023. Non-HDL Cholesterol 117 mg/dL [facility] Comment: Interpretive Data Ages < or = 19 years Acceptable: <120 mg/dL Borderline high: 120-144 mg/dL High: >145 mg/dL Ages > or = 20 years When triglycerides are >200 mg/dL, Non-HDL cholesterol is a secondary target of therapy with treatment goals that are 30 mg/dL greater than the LDL cholesterol target. Literature References: 1. Expert Panel on Integrated Guidelines for Cardiovascular Health and Risk Reduction in Children and Adolescents. Pediatrics 2011;128:S213 2. NCEP Expert Panel. Circulation 2004;110:227 Current Interpretive Data was last revised on 2017. Chol/HDL ratio 5 [facility] Blood 04/23/2024 9:07 AM LABOR SERVICE REPRESENTATIVE 04/23/2024 7:21 PM LABOR SERVICE REPRESENTATIVE us Torsten Pro MD LAB BLOOD ORDERABLES Final Result Performing Organization Address City/State/ZIP Co mi Phone Number [facility] [address] [address] [place] [address] * (ABNORMAL) Comprehensive metabolic panel (04/23/2024 9:07 AM LABOR SERVICE REPRESENTATIVE) Sodium 138 135 - 145 mmol/L Potassium, pl 4.8 3.3 - 4.9 mmol/L [facility] Chloride 101 97 - 110 mmol/L [facility] CO2 23 22 - 32 mmol/L [facility] Anion gap 14 2 - 15 mmol/L [facility] BUN 23 6 - 25 mg/dL [facility] Creatinine 1.59(H) 0.80 - 1.30 mg/dL [facility] Glucose 163 70 - 199 mg/dL [facility] Comment: Interpretive Data Fasting glucose >/= 126 mg/dl is diagnostic for diabetes. Fasting is defined as no caloric intake for at least 8 hours. Fasting glucose between 100 mg/dl to 125 mg/dl is diagnostic of prediabetes. In a patient with classic symptoms of hyperglycemia or hyperglycemic crisis, a random glucose >/= 200 mg/dl is diagnostic for diabetes. In the absence of unequivocal hyperglycemia, results should be confirmed by repeat testing. The classification and Diagnosis of Diabetes Diabetes Care 2021; 46: S19-S40. Current interpretive data was last revised 2022. Calcium 9.9 8.5 - 10.3 mg/dL [facility] Bilirubin, total 0.4 0.1 - 1.2 mg/dL [facility] Protein, pl 7.4 6.5 - 8.5 g/dL [facility] Albumin 4.6 3.5 - 5.0 g/dL [facility] Alk phos 92 40 - 130 Units/L [facility] ALT 12 7 - 55 Units/L [facility] AST 26 10 - 50 Units/L [facility] Blood 04/23/2024 9:07 AM LABOR SERVICE REPRESENTATIVE 04/23/2024 7:21 PM LABOR SERVICE REPRESENTATIVE Torsten Pro MD LAB BLOOD ORDERABLES Final Result [facility] [address] [address] [place] [address] * DIABETES EYE EXAM (12/13/2023 2:09 PM CDT) Historical Provider HEALTH MAINTENANCE Final Result from Last 3 Months or Most Recently Relevant to Health Maintenance Insurance [facility] MEDICARE ADVANTAGE [facility] MEDICARE Address: [facility] [address] [place] [address] [employer] MDCR HMO REF [facility]ICAL [facility]ENTER MEDICARE Address: [address] [address] [place] [id number] [facility] MEDICARE ADVANTAGE [facility]ICAL [facility] MEDICARE Address: [address] [address] [place] [phone] Care Teams Expense Analyst Relationship Specialty Start Date End Date Torsten Pro MD [address] [facility] [address] [place] [address] PCP - General Family Medicine 10/25/23 Chester Cordoba MD [address] [facility] [address] [place] [address] Consulting Physician Nephrology 10/25/23 Sky Herrmann MD [address] [place] [address] Consulting Physician Otolaryngology 10/25/23
--- OUTSIDE RECORDS SUMMARY | 2024-05-14 13:31 | XMS_ITS | Clinical Summary ---
Author Organization [facility] Address [address] [place] [address] Care Team Providers Care Conservation Engineer Name Role Phone Torsten Pro MD Primary Care Provider [phone] Chester Cordoba MD Unavailable [phone] Sky Herrmann MD Unavailable [phone] Allergies No known active allergies Medications aspirin 81 mg tablet daily. Active omega 1-wbc-lgl-fish oil 300-1,000 mg capsule 1 daily Active [...] by mouth daily 90 tablet 3 04/24/19 25 026 Active lisinopriL (PRINIVIL,ZEST RIL) 2.5 mg tablet Take 1 tablet (2.5 mg total) by mouth daily 90 tablet 3 04/24/19 25 026 Active finasteride (PROSCAR) 5 mg tablet Take 1 tablet (5 mg total) by mouth daily 90 tablet 3 04/24/19 25 026 Active tamsulosin (FLOMAX) 0.4 mg extended release capsule Take 1 capsule (0.4 mg total) by mouth daily 90 capsule 3 04/24/19 25 026 Active glimepiride (AMARYL) 4 mg tablet Take 1 tablet (4 mg total) by mouth daily before breakfast 90 tablet 3 04/24/19 25 026 Active gemfibroziL (LOPID) 600 mg tablet Take 1 tablet (600 mg total) by mouth 2 (two) times a day 180 tablet 3 04/24/19 Active atorvastatin (LIPITOR) 10 mg tabletIndicati ons:Dyslipidem ia due to type 2 diabetes mellitus (HCC) Take 2 tablets (20 mg total) by mouth nightly 04/26/19 Active multivit-hearing examiner als/folic acid (CENTRUM ADULTS ORAL) Take [...] 5 mg tablet daily. 025 Discontinued(Re order) uixidoff-edh-C Z-izdzwyb-jfok in 300-600-300 mcg tablet daily. 025 Discontinued [...] 09/2023 Assessment & Plan (01/28/2024 12:40 PM COUNTERINTELLIGENCE ANALYST): A(n) yearly Medicare Annual Wellness Visit has [...] T6-T9 s/p resection; 2008 MRI T-spine neg. Encounters Date Type Department Care Team Description 04/27/2024 Results Follow-Up [facility] Primary Care at [address] [id number] Torsten Pro MD 04/25/2024 11:00 AM COUNTERINTELLIGENCE ANALYST Office Visit [facility] Primary Care at [address] [address] Torsten Pro MD Type 2 diabetes mellitus with stage 3b chronic kidney disease, without long-term current use of insulin (HCC) (Primary Dx); Hypertension associated with diabetes (HCC); Dyslipidemia due to type 2 diabetes mellitus (HCC); Bilateral carotid artery stenosis; Vitamin D3 deficiency 04/23/2024 9:15 AM COUNTERINTELLIGENCE ANALYST Lab [facility] Outpatient Lab at [address] [address] Essential hypertension (Primary Dx) 04/23/2024 9:07 AM COUNTERINTELLIGENCE ANALYST - 04/23/2024 11:59 PM COUNTERINTELLIGENCE ANALYST Hospital Encounter [address] [address] Need for hepatitis B screening test; Need for hepatitis C screening test; Vitamin D3 deficiency; Type 2 diabetes mellitus with stage 2 chronic kidney disease, without long-term current use of insulin (HCC); Dyslipidemia; Essential hypertension Discharge Disposition: Discharge to home or self care from Last 3 Months Immunizations Immunization Administration Dates Next Due COVID-19 [...] Bi valent, Original/omicron Ba.1 06/20/2023,12/09/2022 Tdap 11/02/2016 Surgical History Surgery Date Site/Laterality Comments NEUROFIBROMA EXCISION 02/20/1990 - 02/19/1991 Excision Of Neurofibroma - (Added by Conv) FL ADAMS W/O FACETEC FORAMOT/DSC 02/21 VRT SGM CRV 02/20/1990 - 02/19/1991 Laminectomy Thoracic - (Added by Conv) LIPOMA RESECTION 02/20/2021 - 02/19/2022 Medical History Medical History Date Comments Hypertension History of benign tumor of spinal meninges Type 2 diabetes mellitus (HCC) Hypertriglyceridemia Thyroid nodule Family History Medical History Relation Name Comments Diabetes Father Family history of diabetes mellitus - (Added by Conv) Heart defect Father Family history of cardiomegaly - (Added by Conv) Liver disease Father Family history of liver disease - (Added by Conv) Pancreatic cancer Father Family his tory of pancreatic cancer - (Added by Conv) Multiple sclerosis Mother Family hi story of multiple sclerosis - (Added by Conv) Stroke Paternal Grandfather Family history of cerebrovascular accident (CVA) - (Added by Conv) Pancreatic cancer Paternal Grandmother Fa tom history of pancreatic cancer - (Added by Conv) Relation Name Status Comments Father Mother Paternal Grandfather Paternal Grandmother Social History Tobacco Use Types Packs/Day Years Used Date Smoking Tobacco: Never Smokeless Tobacco: Never Tobacco Cessation:Counseling Given: Not Answered PHQ-2 Answer Date Recorded PHQ-2 Total Score (If total score is 3 or more points, staff should administer the PHQ-9) 0 04/25/2024 Sex and Gender Information Value Date Recorded Sex Assigned at Not on file Legal Sex Male 7:27 AM COUNTERINTELLIGENCE ANALYST Gender Identity Not on file Sexual Orientation Not on file 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 Not on file Not on file Not on file Obstetrics History Last Filed Vital Signs Vital Sign Reading Time Taken Comments Blood Pressure 122/80 04/25/2024 11:04 AM COUNTERINTELLIGENCE ANALYST Pulse 73 04/25/2024 11:04 AM COUNTERINTELLIGENCE ANALYST Temperature 36 C (96.8 F) 04/25/2024 11:04 AM COUNTERINTELLIGENCE ANALYST Respiratory Rate 18 04/25/2024 11:04 AM COUNTERINTELLIGENCE ANALYST Oxygen Saturation 98% 04/25/2024 11:04 AM COUNTERINTELLIGENCE ANALYST Inhaled Oxygen Concentration - - Weight 90.7 kg (200 lb) 04/25/2024 11:04 AM COUNTERINTELLIGENCE ANALYST Height 177.8 cm (5' 10 ) 04/25/2024 11:04 AM COUNTERINTELLIGENCE ANALYST Body Mass Index 28.7 04/25/2024 11:04 AM COUNTERINTELLIGENCE ANALYST Plan of Treatment Health Maintenance Due Date Last Done Comments Colon Cancer Screening-Colonoscopy 1950 Foot Exam 1950 Zoster Vaccine (1 of 2) 09/11/2001 Covid-19 Vaccine ( season) 2024 12/19/2023, 06/20/2023, 06/20/2023, Additional history exists Hemoglobin A1C 10/24/2024 04/23/2024, 01/24/2024 Dilated Eye Exam 12/12/2024 12/13/2023 Fall Risk Assessment 01/24/2025 01/25/2024, 10/25/19 24 Well Visit 65+ 01/24/2025 01/25/2024 Albumin Creatinine Ratio, Urine 04/23/2025 Lipid Panel 04/23/2025 04/23/2024 eGFR 04/23/2025 04/23/2024 Depression Screening 04/25/2025 04/25/2024, 01/25/2024, 10/25/2023 DTaP/Tdap/Td Vaccine (2 - Td or Tdap) 11/02/2026 11/02/2016 Pneumococcal vaccine 65+ Completed 024, 12/12/2018, 02/06/2015, Additional history exists Influenza Vaccine Completed 12/19/2023, , 11/01/2021, Additional history exists Hepatitis B Screening Completed 04/23/2024 Hepatitis C Screening Completed 04/23/2024 Procedures Procedure Name Priority Date/Time Associated Diagnosis Comments EGFR Routine 04/23/2024 9:07 AM COUNTERINTELLIGENCE ANALYST Essential hypertension DIFFERENTIAL AUTO Routine 04/23/2024 9:0 7 AM COUNTERINTELLIGENCE ANALYST Essential hypertension ALBUMIN CREATININE RATIO, URINE Routine 04/23/2024 9:07 AM COUNTERINTELLIGENCE ANALYST Type 2 diabetes mellitus with stage 2 chronic kidney disease, without long-term current use of insulin (HCC) CBC WITH AUTO DIFFERENTIAL Routine 04/23/2024 9:07 AM COUNTERINTELLIGENCE ANALYST Essential hypertension COMPREHENSIVE METABOLIC PANEL Routine 04/23/2024 9:07 AM COUNTERINTELLIGENCE ANALYST Essential hypertension LIPID PANEL Routine 04/23/2024 9:07 AM COUNTERINTELLIGENCE ANALYST Dyslipidemia HEMOGLOBIN A1C Routine 04/23/2024 9:07 AM COUNTERINTELLIGENCE ANALYST Type 2 diabetes mellitus with stage 2 chronic kidney disease, without long-term current use of insulin (HCC) VITAMIN D 25 HYDROXY Routine 04/23/2024 9:07 AM COUNTERINTELLIGENCE ANALYST Vitamin D3 deficiency HEPATITIS B SURFACE ANTIBODY (IMMUNE STATUS) Routine 04/23/2024 9:07 AM COUNTERINTELLIGENCE ANALYST Need for hepatitis B screening test HEPATITIS C ANTIBODY Routine 04/23/2024 9:07 AM COUNTERINTELLIGENCE ANALYST Need for hepatitis C screening test HEPATITIS B SURFACE ANTIGEN Routine 04/23/2024 9:07 AM COUNTERINTELLIGENCE ANALYST Need for hepatitis B screening test HEPATITIS B CORE ANTIBODY, TOTAL Routine 04/23/2024 9:07 AM COUNTERINTELLIGENCE ANALYST Need for hepatitis B screening test DIABETES EYE EXAM Routine 12/13/2023 2:09 PM CDT from Last 3 Months or Most Recently Relevant to Health Maintenance Results * (ABNORMAL) eGFR (04/23/2024 9:07 AM COUNTERINTELLIGENCE ANALYST) eGFR 46(L) >=60 mL/min/1. 73 m2 Comment: [...] of Race in Diagnosing Kidney Disease, JASN 2020). The CKD-EPI equation should not be used for patients with unstable renal function and has not been validated in children and those over 70. Current interpretive data was last reviewed 2020. Blood 04/23/2024 9:07 AM COUNTERINTELLIGENCE ANALYST 04/23/2024 7:46 PM COUNTERINTELLIGENCE ANALYST Torsten Pro MD LAB BLOOD ORDERABLES Final Result [facility] [address] [address] Department [place] [address] * Differential, auto (04/23/2024 9:07 AM COUNTERINTELLIGENCE ANALYST) Neutrophil abs 4.0 1.5 - 6.5 K/cumm Imm gran abs 0.0 0.0 - 0.1 K/cumm [facility] Lymphocyte abs 1.8 0.8 - 3.3 K/cumm [facility] Monocyte abs 0.5 0.2 - 0.8 K/cumm [facility] Eosinophil abs 0.2 0.0 - 0.5 K/cumm [facility] Basophil abs 0.0 0.0 - 0.1 K/cumm [facility] Neutrophil pct 60.9 % [facility] Comment: Interpretive Data Percent cell count reference ranges are not reported, since discordance with absolute values may lead to misinterpretation of CBC data. Current Interpretive Data was last revised on 2017. Imm gran pct 0.5 % [facility] Comment: Interpretive Data Percent cell count reference ranges are not reported, since discordance with absolute values may lead to misinterpretation of CBC data. Current Interpretive Data was last revised on 2017. Lymphocyte pct 27.6 % [facility] Comment: Interpretive Data Percent cell count reference ranges are not reported, since discordance with absolute values may lead to misinterpretation of CBC data. Current Interpretive Data was last revised on 2017. Monocyte pct 8.1 % [facility] Comment: Interpretive Data Percent cell count reference ranges are not reported, since discordance with absolute values may lead to misinterpretation of CBC data. Current Interpretive Data was last revised on 2017. Eosinophil pct 2.3 % [facility] Comment: Interpretive Data Percent cell count reference ranges are not reported, since discordance with absolute values may lead to misinterpretation of CBC data. Current Interpretive Data was last revised on 2017. Basophil pct 0.6 % [facility] Comment: Interpretive Data Percent cell count reference ranges are not reported, since discordance with absolute values may lead to misinterpretation of CBC data. Current Interpretive Data was last revised on 2017. Blood 04/23/2024 9:07 AM COUNTERINTELLIGENCE ANALYST 04/23/2024 7:21 PM COUNTERINTELLIGENCE ANALYST Torsten Pro MD LAB BLOOD ORDERABLES Final Result Performing Organization Address City/[facility] Co de Phone Number [facility] [address] [address] Department [place] [address] * CBC with auto differential (04/23/2024 9:07 AM COUNTERINTELLIGENCE ANALYST) WBC 6.5 3.8 - 9.9 K/cumm Hgb 14.8 13.0 - 17.5 g/dL [facility] Hct 43.6 38.9 - 50.3 % [facility] Plt 210 150 - 400 K/cumm [facility] MPV 10.9 9.1 - 12.3 fL [facility] RBC 4.77 4.30 - 5.80 M/cumm [facility] MCV 91.4 81.3 - 96.4 fL [facility] MCH 31.0 27.1 - 33.3 pg [facility] MCHC 33.9 32.3 - 35.7 g/dL [facility] RDW CV 12.9 11.1 - 14.9 % [facility] RDW SD 42.7 35.7 - 48.1 fL [facility] NRBC abs 0.00 0.00 - 0.01 K/cumm [facility] Blood 04/23/2024 9:07 AM COUNTERINTELLIGENCE ANALYST 04/23/2024 7:21 PM COUNTERINTELLIGENCE ANALYST Torsten Pro MD LAB BLOOD ORDERABLES Final Result Performing Organization Address City/State/[facility] Co de Phone Number [facility] [address] [address] [place] [address] * Hepatitis C antibody Blood (04/23/2024 9:07 AM COUNTERINTELLIGENCE ANALYST) Pathologist [facility] Hep C Ab Nonreactive Nonreactive Comment: Interpretive [...] revised on 2019. Blood 04/23/2024 9:07 AM COUNTERINTELLIGENCE ANALYST 04/23/2024 7:21 PM COUNTERINTELLIGENCE ANALYST Torsten Pro MD LAB MICROBIOLOGY - GENERAL ORDERABLES Final Result Performing Organization Address [place] Phone Number [facility] [address] [address] [place] [address] * Albumin Creatinine Ratio, Urine (04/23/2024 9:07 AM COUNTERINTELLIGENCE ANALYST) Pathologist [facility] Albumin Ur 23.5 mg/L Comment: Interpretive Data No reference range established. Current interpretive data was last revised 2018. Creatinine Ur 92.6 mg/dL [facility] Comment: Interpretive Data No reference range established. Current interpretive data was last revised 2018. Albumin Creatinine Ratio, Ur 25 1 - 29 mg/g [facility] Urine 04/23/2024 9:07 AM COUNTERINTELLIGENCE ANALYST 04/23/2024 7:21 PM COUNTERINTELLIGENCE ANALYST Torsten Pro MD LAB URINE ORDERABLES Final Result Performing Organization Address [facility] Co de Phone Number [facility] [address] [place] [address] * Hepatitis B core antibody, total Blood (04/23/2024 9:07 AM COUNTERINTELLIGENCE ANALYST) Pathologist [facility] Hep B core IgG/IgM Nonreactive Nonreactive Comment:Testing performed by : [facility], [address] [place]., [address] Blood 04/23/2024 9:07 AM COUNTERINTELLIGENCE ANALYST 04/24/2024 9:59 AM COUNTERINTELLIGENCE ANALYST Result [facility] Torsten Pro MD LAB MICROBIOLOGY - GENERAL ORDERABLES Final Result Performing Organization Address [facility] Co de Phone Number [facility] [address] [address] [place] [address] * (ABNORMAL) Vitamin D 25 hydroxy (04/23/2024 9:07 AM COUNTERINTELLIGENCE ANALYST) [facility] Vitamin D 25-OH 29(L) 30 - 80 ng/mL Blood 04/23/2024 9:07 AM COUNTERINTELLIGENCE ANALYST 04/23/2024 7:21 PM COUNTERINTELLIGENCE ANALYST Result [facility] Torsten Pro MD LAB BLOOD ORDERABLES Final Result Performing Organization Address [facility] Co de Phone Number [facility] [address] [address] [place] [address] * Hepatitis B surface antibody (immune status) Blood (04/23/2024 9:07 AM COUNTERINTELLIGENCE ANALYST) [facility] HBsAb (immune status) Nonreactive Comment: Interpretive Data [...] revised on 19. Blood 04/23/2024 9:07 AM COUNTERINTELLIGENCE ANALYST 04/23/2024 7:21 PM COUNTERINTELLIGENCE ANALYST Result [facility] Torsten Pro MD LAB MICROBIOLOGY - GENERAL ORDERABLES Final Result Performing Organization Address City/State/[facility] Phone Number [facility] [address] [place] [place] [address] * Hepatitis B Surface Antigen Blood (04/23/2024 9:07 AM COUNTERINTELLIGENCE ANALYST) [facility] HepBsAg Nonreactive Nonreactive Blood 04/23/2024 9:07 AM COUNTERINTELLIGENCE ANALYST 04/23/2024 7:21 PM COUNTERINTELLIGENCE ANALYST Torsten Pro MD LAB MICROBIOLOGY - GENERAL ORDERABLES Final Result Performing Organization Address [facility] Phone Number [facility] [address] [address] [place] [address] * (ABNORMAL) Hemoglobin A1c (04/23/2024 9:07 AM COUNTERINTELLIGENCE ANALYST) [facility] Hgb A1C 6.3(H) 4.0 - 5.6 % Estimated Average Glucose 134 mg/dL [facility] Comment: The ADA recommends reporting an estimated Average Glucose (eAG) with all Hemoglobin A1c results using the equation derived from a study of 507 normal and diabetic adults. Minority populations were underrepresented and children were not included. (Diabetes Care 31:1473-9529, 2008). The eAG is not equivalent to a fasting glucose. Blood 04/23/2024 9:07 AM COUNTERINTELLIGENCE ANALYST 04/23/2024 7:21 PM COUNTERINTELLIGENCE ANALYST Torsten Pro MD LAB BLOOD ORDERABLES Final Result Performing Organization Address [facility] Phone Number [facility] [address] [address] [place] [address] * (ABNORMAL) Lipid panel (04/23/2024 9:07 AM COUNTERINTELLIGENCE ANALYST) [facility] Cholesterol 146 30 - 199 mg/dL Comment: [...] on 2017. Triglycerides 219(H) <=149 mg/dL [facility] Comment: Interpretive Data Ages < or = [...] on 2017. HDL 29(L) >=40 mg/dL [facility] Comment: Interpretive Data Ages < or = [...] 2017. LDL, calculated 80 <=129 mg/dL [facility] Comment: Interpretive Data Ages < or = 19 years Acceptable: <110 mg/dL Borderline high: 110-129 mg/dL High: >or= 130 mg/dL Ages > or = 20 years Optimal: <100 mg/dL Near optimal: 100-129 mg/dL Borderline high: 130-159 mg/dL High: >160 mg/dL Calculated using the Hernandez LDL-C estimating equation. This equation was implemented on 2023. Prior to this date LDL-C was estimated using the Friedewald equation. Literature References: 1. Expert Panel on Integrated Guidelines for Cardiovascular Health and Risk Reduction in Children and Adolescents. Pediatrics 2011;128:S213 2. NCEP Expert Panel. Circulation 2004;110:227 3. David M et al. ERIC Cardiol. 2020 June 20;5(5):540-548. doi: 10.1001/jamacardio.2020.0013 Current Interpretive Data was last revised on 2023. Non-HDL Cholesterol 117 mg/dL [facility] Comment: Interpretive Data Ages < or = [...] last revised on 2017. Chol/HDL ratio 5 [facility] Blood 04/23/2024 9:07 AM COUNTERINTELLIGENCE ANALYST 04/23/2024 7:21 PM COUNTERINTELLIGENCE ANALYST us Torsten Pro MD LAB BLOOD ORDERABLES Final Result [facility] [address] [address] Department [place] [address] * (ABNORMAL) Comprehensive metabolic panel (04/23/2024 9:07 AM COUNTERINTELLIGENCE ANALYST) Sodium 138 135 - 145 mmol/L Potassium, pl 4.8 3.3 - 4.9 mmol/L [facility] Chloride 101 97 - 110 mmol/L [facility] CO2 23 22 - 32 mmol/L [facility] Anion gap 14 2 - 15 mmol/L [facility] BUN 23 6 - 25 mg/dL [facility] Creatinine 1.59(H) 0.80 - 1.30 mg/dL [facility] Glucose 163 70 - 199 mg/dL [facility] Comment: Interpretive Data Fasting glucose >/= 126 [...] Units/L [facility] Blood 04/23/2024 9:07 AM COUNTERINTELLIGENCE ANALYST 04/23/2024 7:21 PM COUNTERINTELLIGENCE ANALYST Torsten Pro MD LAB BLOOD ORDERABLES Final Result [facility] [address] [address] Department of Laboratories [place] [phone] * DIABETES EYE EXAM (12/13/2023 2:09 PM CDT) Historical Provider HEALTH MAINTENANCE Final Result from Last 3 Months or Most Recently Relevant to Health Maintenance Insurance [facility] MEDICARE ADVANTAGE [facility] MEDICARE ADVANTAGE Care Teams Conservation Engineer Relationship Specialty Start Date End Date Torsten Pro MD [address] [place] [address] PCP - General Family Medicine 10/25/23 Chester Cordoba MD [address] [facility] [address] [place] [address] Consulting Physician Nephrology 10/25/23 Sky Herrmann MD [address] [place] [address] Consulting Physician Otolaryngology 10/25/23
[2024-05-14 13:45] LABS: Hemoglobin A1C 6.2 % (<5.7)
== END 2024-05-14 11:12 | disposition home or self-care (01) ==
PROVIDERS: PCP Family Medicine; Visit Provider Internal Medicine Nephrology
DX: I12.9 Hypertensive chronic kidney disease with stage 1 through stage 4 chronic kidney disease, or unspecified chronic kidney disease (principal); N18.32 Chronic kidney disease, stage 3b; G61.89 Other inflammatory polyneuropathies; E78.2 Mixed hyperlipidemia; M51.9 Unspecified thoracic, thoracolumbar and lumbosacral intervertebral disc disorder
CPT/HCPCS: 36415; 80053; 80061; 81003; 82306; 82570; 83036; 83970; 84100; 84156; 85025